=== PATIENT | female | born 1935 | race Caucasian/White ===

== ENCOUNTER 2019-04-05 10:38 | Inpatient (IN) ==
[2019-04-05] MEDS ORDERED: Aspirin 81 MG TAB.CHEW PO ONE (10:48)
[2019-04-05] MEDS ORDERED: Nitroglycerin 0.4 MG TAB.SUBL SL PRN (11:00)
[2019-04-05 11:03] LABS: Basophils # 0.1 K/mcL (0.0-0.2); Basophils % 1.1 %; Eosinophils # 0.4 K/mcL (0.0-0.6); Eosinophils % 4.6 %; Hematocrit 35.6 % (35.3-44.9); Hemoglobin 11.3 g/dL (11.5-15.4); Immature Granulocytes % 0.2 % (0-4); Lymphocytes # 2.9 K/mcL (0.6-4.6); Lymphocytes % 30.3 %; Mean Corpuscular HGB Conc 31.7 g/dL (31.6-35.5); Mean Corpuscular Volume 81.8 fL (83.0-100.0); Mean Platelet Volume 10.5 fL (9.4-12.4); Monocytes # 0.9 K/mcL (0.0-1.3); Monocytes % 9.4 %; Neutrophils # 5.1 K/mcL (1.6-8.9); Platelet Count 243 K/mcL (140-400); Red Blood Count 4.35 M/mcL (3.82-4.97); Red Cell Distribution Width 14.6 % (11.5-14.5); Segmented Neutrophils % 54.4 %; White Blood Count 9.4 K/mcL (4.3-11.1)
[2019-04-05 11:16] LABS: Prothrombin Time 11.5 Seconds (9.4-12.1)
[2019-04-05 11:25] LABS: Calcium 9.8 mg/dL (8.6-10.3); Potassium 3.2 mEq/L (3.5-5.1)
[2019-04-05 11:36] LABS: Troponin I 0.26 ng/mL (< 0.04)
[2019-04-05] MEDS: Nitroglycerin 25 MG/250 ML INFUS..BTL IVC SCH (12:19)
[2019-04-05] MEDS ORDERED: Naloxone 0.4 MG/ML INJ IVP PRN (13:53)
[2019-04-05] MEDS ORDERED: *HR* Heparin 5,000 UNIT/ML VIAL IVP ONE (15:05)
[2019-04-05] MEDS ORDERED: *HR* Heparin 5,000 UNIT/ML VIAL IVP PRN ×2 (15:05)
[2019-04-05] MEDS ORDERED: Heparin 25,000 UNIT/250 ML D5W 25,000 UNIT/250 ML IV.SOLN IVC SCH (15:15)
[2019-04-05] MEDS: Acetaminophen 325 MG TABLET PO PRN (16:34)
[2019-04-05 16:45] LABS: Hematocrit 33.5 % (35.3-44.9); Hemoglobin 10.9 g/dL (11.5-15.4); Mean Corpuscular HGB Conc 32.5 g/dL (31.6-35.5); Mean Corpuscular Hemoglobin 26.7 pg (28.0-33.3); Mean Corpuscular Volume 81.9 fL (83.0-100.0); Mean Platelet Volume 10.6 fL (9.4-12.4); Platelet Count 222 K/mcL (140-400); Red Blood Count 4.09 M/mcL (3.82-4.97); Red Cell Distribution Width 14.7 % (11.5-14.5); White Blood Count 8.7 K/mcL (4.3-11.1)
[2019-04-05 16:53] LABS: Heparin anti-factor XA UFH 0.03 IU/mL (0.30-0.70)
[2019-04-05 16:54] LABS: Prothrombin Time 11.4 Seconds (9.4-12.1)
[2019-04-05] MEDS ORDERED: Metoprolol XL (24 HR) Succ 50 MG TAB.ER.24H PO ONE ×2 (18:30→18:45)
[2019-04-05] MEDS: *HR* Acetylcysteine 20% 600 MG/3 ML ORAL SYRINGE PO SCH (21:25)
[2019-04-05] MEDS: *HR* HYDROcodone/Acet 5/325 mg TABLET PO PRN (21:37)
[2019-04-06 05:15] LABS: Mean Corpuscular HGB Conc 32.4 g/dL (31.6-35.5); Mean Corpuscular Hemoglobin 26.8 pg (28.0-33.3); Mean Corpuscular Volume 82.7 fL (83.0-100.0); Mean Platelet Volume 10.8 fL (9.4-12.4); Platelet Count 234 K/mcL (140-400); Red Blood Count 4.11 M/mcL (3.82-4.97); Red Cell Distribution Width 14.8 % (11.5-14.5); White Blood Count 10.9 K/mcL (4.3-11.1)
[2019-04-06 05:23] LABS: Calcium 9.8 mg/dL (8.6-10.3); Chol/HDL Ratio 5.1 (0-4.9); Magnesium 1.7 mg/dL (1.6-2.6); Potassium 3.6 mEq/L (3.5-5.1)
[2019-04-06] MEDS ORDERED: *HR* Metoprolol 5 MG/5 ML VIAL IVP ONE (06:03)
[2019-04-06] MEDS ORDERED: Metoprolol XL (24 HR) Succ 50 MG TAB.ER.24H PO SCH ×2 (09:00)
[2019-04-06] MEDS: DilTIAZem CD (24hr) 240 MG CAP.ER.24H PO SCH (09:14)
[2019-04-06] MEDS: cloNIDine HCl 0.1 MG TABLET PO SCH ×3 (09:14→20:25)
[2019-04-06] MEDS: *HR* Acetylcysteine 20% 600 MG/3 ML ORAL SYRINGE PO SCH ×2 (09:16→20:25)
[2019-04-06] MEDS: Nitroglycerin 25 MG/250 ML INFUS..BTL IVC SCH (09:16)
[2019-04-06] MEDS: carvediloL 6.25 MG TABLET PO SCH ×2 (11:10→18:15)
[2019-04-06] MEDS: *HR* Heparin 5,000 UNIT/ML VIAL SQ SCH (18:15)
[2019-04-06] MEDS ORDERED: DilTIAZem CD (24hr) 240 MG CAP.ER.24H PO ONE (20:00)
[2019-04-06] MEDS: *HR* HYDROcodone/Acet 5/325 mg TABLET PO PRN (20:42)
[2019-04-07 03:42] LABS: Basophils % 0.6 %; Eosinophils # 0.3 K/mcL (0.0-0.6); Eosinophils % 4.4 %; Hematocrit 27.2 % (35.3-44.9); Immature Granulocytes % 0.3 % (0-4); Lymphocytes # 2.5 K/mcL (0.6-4.6); Lymphocytes % 35.2 %; Mean Corpuscular Hemoglobin 26.7 pg (28.0-33.3); Mean Corpuscular Volume 83.4 fL (83.0-100.0); Mean Platelet Volume 11.1 fL (9.4-12.4); Monocytes # 0.6 K/mcL (0.0-1.3); Monocytes % 8.5 %; Neutrophils # 3.6 K/mcL (1.6-8.9); Platelet Count 177 K/mcL (140-400); Red Blood Count 3.26 M/mcL (3.82-4.97); Red Cell Distribution Width 14.9 % (11.5-14.5)
[2019-04-07 03:57] LABS: Hemoglobin 8.7 g/dL (11.5-15.4)
[2019-04-07 04:01] LABS: Calcium 8.8 mg/dL (8.6-10.3); Magnesium 1.7 mg/dL (1.6-2.6); Potassium 3.5 mEq/L (3.5-5.1)
[2019-04-07] MEDS: *HR* Heparin 5,000 UNIT/ML VIAL SQ SCH (05:21)
[2019-04-07 06:55] LABS: Estimated Average Glucose 160 mg/dl
[2019-04-07] MEDS ORDERED: Regadenoson 0.4 MG/5 ML SYRINGE IVP ONE (07:11)
[2019-04-07] MEDS ORDERED: (Ezetimibe 10 MG) PO SCH (09:00)
[2019-04-07] MEDS: *HR* Acetylcysteine 20% 600 MG/3 ML ORAL SYRINGE PO SCH (10:13)
[2019-04-07] MEDS: 0.9 % Sodium Chloride 1,000 ML IVC SCH ×2 (10:15→21:32)
[2019-04-07] MEDS: carvediloL 6.25 MG TABLET PO SCH ×3 (10:25→17:23)
[2019-04-07] MEDS: DilTIAZem CD (24hr) 240 MG CAP.ER.24H PO SCH (10:25)
[2019-04-07] MEDS: Aspirin Enteric Coated 81 MG Tablet PO SCH (10:25)
[2019-04-07] MEDS ORDERED: D5% in Water 1,000 ML IVC PRN (12:24)
[2019-04-07] MEDS ORDERED: *HR* Dextrose 50 % in Water (Syg) 50 ML SYRINGE IVP PRN (12:24)
[2019-04-07] MEDS ORDERED: Dextrose Gel 15 GM/37.5 ML TUBE PO PRN ×2 (12:24)
[2019-04-07 13:51] LABS: Hematocrit 31.3 % (35.3-44.9); Hemoglobin 10.1 g/dL (11.5-15.4)
[2019-04-07 14:11] LABS: % Iron Saturation 12 % (15-50); Iron 35 mcg/dL (50-170); Transferrin 215 mg/dL (203-362)
[2019-04-07] MEDS: Insulin LISPRO 300 UNITS/3 ML VIAL SQ SCH ×2 (16:42→21:15)
[2019-04-07] MEDS: Pantoprazole 40 MG VIAL IVP SCH (17:24)
[2019-04-07 22:26] LABS: Sodium, Urine 19.3 mEq/L
[2019-04-08] MEDS: 0.9 % Sodium Chloride 1,000 ML IVC SCH ×2 (00:08→16:15)
[2019-04-08 04:14] LABS: Basophils # 0.1 K/mcL (0.0-0.2); Basophils % 0.8 %; Eosinophils # 0.6 K/mcL (0.0-0.6); Eosinophils % 5.9 %; Hematocrit 33.2 % (35.3-44.9); Hemoglobin 10.7 g/dL (11.5-15.4); Immature Granulocytes % 0.4 % (0-4); Lymphocytes % 39.1 %; Mean Corpuscular HGB Conc 32.2 g/dL (31.6-35.5); Mean Corpuscular Hemoglobin 26.3 pg (28.0-33.3); Mean Corpuscular Volume 81.6 fL (83.0-100.0); Mean Platelet Volume 11.1 fL (9.4-12.4); Monocytes # 0.7 K/mcL (0.0-1.3); Monocytes % 6.7 %; Neutrophils # 4.8 K/mcL (1.6-8.9); Platelet Count 235 K/mcL (140-400); Red Blood Count 4.07 M/mcL (3.82-4.97); Red Cell Distribution Width 14.8 % (11.5-14.5); Segmented Neutrophils % 47.1 %; White Blood Count 10.1 K/mcL (4.3-11.1)
[2019-04-08 04:33] LABS: Magnesium 1.9 mg/dL (1.6-2.6); Potassium 3.7 mEq/L (3.5-5.1)
[2019-04-08] MEDS: Pantoprazole 40 MG VIAL IVP SCH (05:48)
[2019-04-08] MEDS: Insulin LISPRO 300 UNITS/3 ML VIAL SQ SCH ×4 (07:12→21:08)
[2019-04-08] MEDS: carvediloL 6.25 MG TABLET PO SCH ×2 (08:34→16:15)
[2019-04-08] MEDS: DilTIAZem CD (24hr) 240 MG CAP.ER.24H PO SCH (08:34)
[2019-04-08] MEDS ORDERED: hydrOXYzine pamoate 25 MG CAPSULE PO ONE ×2 (17:03→21:10)
[2019-04-08] MEDS ORDERED: Melatonin 3 MG TABLET PO PRN (20:08)
[2019-04-09] MEDS: 0.9 % Sodium Chloride 1,000 ML IVC SCH ×2 (05:25→19:48)
[2019-04-09] MEDS: Acetaminophen 325 MG TABLET PO PRN (05:28)
[2019-04-09 05:50] LABS: Basophils # 0.1 K/mcL (0.0-0.2); Basophils % 0.7 %; Eosinophils # 0.5 K/mcL (0.0-0.6); Eosinophils % 4.6 %; Hematocrit 32.2 % (35.3-44.9); Hemoglobin 10.5 g/dL (11.5-15.4); Immature Granulocytes % 0.2 % (0-4); Lymphocytes # 2.5 K/mcL (0.6-4.6); Lymphocytes % 24.4 %; Mean Corpuscular HGB Conc 32.6 g/dL (31.6-35.5); Mean Corpuscular Hemoglobin 26.6 pg (28.0-33.3); Mean Corpuscular Volume 81.5 fL (83.0-100.0); Mean Platelet Volume 10.9 fL (9.4-12.4); Monocytes # 0.7 K/mcL (0.0-1.3); Neutrophils # 6.3 K/mcL (1.6-8.9); Platelet Count 240 K/mcL (140-400); Red Blood Count 3.95 M/mcL (3.82-4.97); Segmented Neutrophils % 63.1 %
[2019-04-09 05:59] LABS: Prothrombin Time 11.3 Seconds (9.4-12.1)
[2019-04-09 06:09] LABS: Calcium 9.3 mg/dL (8.6-10.3); Potassium 3.6 mEq/L (3.5-5.1)
[2019-04-09] MEDS: Insulin LISPRO 300 UNITS/3 ML VIAL SQ SCH ×4 (07:23→22:42)
[2019-04-09] MEDS: Aspirin Enteric Coated 81 MG Tablet PO SCH (07:25)
[2019-04-09] MEDS: carvediloL 6.25 MG TABLET PO SCH ×2 (07:25→16:19)
[2019-04-09] MEDS: DilTIAZem CD (24hr) 180 MG CAP.ER.24H PO SCH (07:58)
[2019-04-09] MEDS: hydrOXYzine pamoate 25 MG CAPSULE PO PRN (12:26)
[2019-04-09] MEDS: Isosorbide MONOnitrate (24 HR) 30 MG TAB.ER.24H PO SCH (16:20)
[2019-04-09] MEDS: Ondansetron 4 MG/2 ML VIAL IVP PRN (22:43)
[2019-04-10] MEDS: 0.9 % Sodium Chloride 1,000 ML IVC SCH (06:08)
[2019-04-10 06:52] LABS: Hematocrit 30.8 % (35.3-44.9); Hemoglobin 9.8 g/dL (11.5-15.4); Mean Corpuscular HGB Conc 31.8 g/dL (31.6-35.5); Mean Corpuscular Hemoglobin 26.1 pg (28.0-33.3); Mean Corpuscular Volume 81.9 fL (83.0-100.0); Platelet Count 258 K/mcL (140-400); Red Blood Count 3.76 M/mcL (3.82-4.97); Red Cell Distribution Width 15.5 % (11.5-14.5); White Blood Count 10.5 K/mcL (4.3-11.1)
[2019-04-10 07:11] LABS: Calcium 9.3 mg/dL (8.6-10.3); Potassium 3.3 mEq/L (3.5-5.1)
[2019-04-10] MEDS: Insulin LISPRO 300 UNITS/3 ML VIAL SQ SCH ×4 (08:17→20:53)
[2019-04-10] MEDS: carvediloL 6.25 MG TABLET PO SCH ×2 (08:25→16:16)
[2019-04-10] MEDS: DilTIAZem CD (24hr) 180 MG CAP.ER.24H PO SCH (08:26)
[2019-04-10] MEDS: Aspirin Enteric Coated 81 MG Tablet PO SCH (08:26)
[2019-04-10] MEDS: Isosorbide MONOnitrate (24 HR) 30 MG TAB.ER.24H PO SCH (08:27)
[2019-04-10] MEDS ORDERED: Lidocaine -MPF 2% 2 ML VIAL ONE (12:35)
[2019-04-10] MEDS ORDERED: Propofol 500 MG/50 ML INFUS..BTL ONE (12:49)
[2019-04-11] MEDS: Aspirin Enteric Coated 81 MG Tablet PO SCH (07:41)
[2019-04-11] MEDS: Isosorbide MONOnitrate (24 HR) 30 MG TAB.ER.24H PO SCH (07:41)
[2019-04-11] MEDS: DilTIAZem CD (24hr) 180 MG CAP.ER.24H PO SCH (07:42)
[2019-04-11] MEDS: carvediloL 6.25 MG TABLET PO SCH ×2 (07:42→16:16)
[2019-04-11] MEDS: Insulin LISPRO 300 UNITS/3 ML VIAL SQ SCH ×4 (07:56→21:35)
[2019-04-11 09:07] LABS: Hematocrit 28.2 % (35.3-44.9)
[2019-04-11 09:28] LABS: Calcium 8.4 mg/dL (8.6-10.3); Potassium 3.5 mEq/L (3.5-5.1)
[2019-04-11] MEDS ORDERED: Furosemide 20 MG/2 ML VIAL IVP ONE (10:08)
[2019-04-11] MEDS ORDERED: Albumin 25% 12.5gm/50mL 12.5 GM/50 ML IV.SOLN IVPB ONE (10:46)
[2019-04-11] MEDS ORDERED: Isosorbide MONOnitrate (24 HR) 30 MG TAB.ER.24H PO ONE (11:24)
[2019-04-11] MEDS: hydrALAZINE 25 MG TABLET PO SCH (16:17)
[2019-04-12] MEDS: hydrALAZINE 25 MG TABLET PO SCH ×4 (00:15→23:18)
[2019-04-12 05:03] LABS: Hematocrit 28.4 % (35.3-44.9); Hemoglobin 9.2 g/dL (11.5-15.4)
[2019-04-12 05:22] LABS: Calcium 8.5 mg/dL (8.6-10.3); Potassium 2.8 mEq/L (3.5-5.1)
[2019-04-12] MEDS: Insulin LISPRO 300 UNITS/3 ML VIAL SQ SCH ×4 (07:41→21:11)
[2019-04-12] MEDS: DilTIAZem CD (24hr) 180 MG CAP.ER.24H PO SCH (08:54)
[2019-04-12] MEDS: Aspirin Enteric Coated 81 MG Tablet PO SCH (08:54)
[2019-04-12] MEDS: carvediloL 6.25 MG TABLET PO SCH ×2 (08:55→16:18)
[2019-04-12] MEDS ORDERED: Isosorbide MONOnitrate (24 HR) 30 MG TAB.ER.24H PO SCH (09:00)
[2019-04-12] MEDS: hydrOXYzine pamoate 25 MG CAPSULE PO PRN ×3 (09:40→23:31)
[2019-04-12] MEDS ORDERED: Isosorbide MONOnitrate (24 HR) 30 MG TAB.ER.24H PO ONE (10:09)
[2019-04-12] MEDS: Acetaminophen 325 MG TABLET PO PRN (16:50)
[2019-04-12] MEDS ORDERED: Albumin 25% 25gram/100mL 25 GM/100 ML IV.SOLN IVPB ONE (16:57)
[2019-04-13] MEDS ORDERED: Nitroglycerin 0.4 MG TAB.SUBL SL PRN (00:25)
[2019-04-13] MEDS ORDERED: Nitroglycerin 0.4 MG TAB.SUBL SL ONE (00:26)
[2019-04-13] MEDS ORDERED: Ipratropium/Albuterol Neb 3 ML IH ONE (00:30)
[2019-04-13] MEDS ORDERED: Racepinephrine Neb 0.5 ML VIAL IH ONE ×2 (00:30→00:32)
[2019-04-13] MEDS ORDERED: Morphine Sulfate 2 MG/ML SYRINGE IVP ONE ×2 (00:32→00:50)
[2019-04-13] MEDS ORDERED: Nitroglycerin 25 MG/250 ML INFUS..BTL IVC ONE (00:44)
[2019-04-13] MEDS: Nitroglycerin 25 MG/250 ML INFUS..BTL IVC SCH (00:45)
[2019-04-13] MEDS: Furosemide 40 MG/4 ML VIAL IVP ONE (01:21)
[2019-04-13] MEDS: Ondansetron 4 MG/2 ML VIAL IVP PRN (01:28)
[2019-04-13 01:58] LABS: Calcium 8.6 mg/dL (8.6-10.3); Potassium 3.7 mEq/L (3.5-5.1); Thyroid Stimulating Hormone 2.549 mcIU/mL (0.340-5.600)
[2019-04-13] MEDS: Acetaminophen 325 MG TABLET PO PRN ×2 (09:02→15:32)
[2019-04-13] MEDS: Isosorbide MONOnitrate (24 HR) 60 MG TAB.ER.24H PO SCH (09:02)
[2019-04-13] MEDS: carvediloL 6.25 MG TABLET PO SCH ×2 (09:02→17:25)
[2019-04-13] MEDS: DilTIAZem CD (24hr) 180 MG CAP.ER.24H PO SCH (09:02)
[2019-04-13] MEDS: Aspirin Enteric Coated 81 MG Tablet PO SCH (09:02)
[2019-04-13] MEDS: hydrALAZINE 25 MG TABLET PO SCH ×2 (09:02→15:31)
[2019-04-13] MEDS: Insulin LISPRO 300 UNITS/3 ML VIAL SQ SCH ×4 (09:03→20:39)
[2019-04-13] MEDS: *HR* LORazepam 2 MG/ML VIAL IVP PRN (09:03)
[2019-04-13] MEDS: hydrOXYzine pamoate 25 MG CAPSULE PO PRN (15:31)
[2019-04-13 17:56] LABS: Calcium 8.2 mg/dL (8.6-10.3); Potassium 3.6 mEq/L (3.5-5.1)
[2019-04-14] MEDS: hydrALAZINE 25 MG TABLET PO SCH ×4 (00:26→23:45)
[2019-04-14 01:44] LABS: Hematocrit 24.3 % (35.3-44.9); Hemoglobin 7.9 g/dL (11.5-15.4)
[2019-04-14 02:03] LABS: Calcium 7.8 mg/dL (8.6-10.3); Potassium 3.3 mEq/L (3.5-5.1)
[2019-04-14] MEDS ORDERED: Ipratropium/Albuterol Neb 3 ML IH PRN (06:13)
[2019-04-14] MEDS: Isosorbide MONOnitrate (24 HR) 60 MG TAB.ER.24H PO SCH (09:10)
[2019-04-14] MEDS: Aspirin Enteric Coated 81 MG Tablet PO SCH (09:10)
[2019-04-14] MEDS: DilTIAZem CD (24hr) 180 MG CAP.ER.24H PO SCH (09:11)
[2019-04-14] MEDS: *HR* LORazepam 2 MG/ML VIAL IVP PRN (09:11)
[2019-04-14] MEDS: carvediloL 6.25 MG TABLET PO SCH ×2 (09:11→16:14)
[2019-04-14] MEDS: Insulin LISPRO 300 UNITS/3 ML VIAL SQ SCH ×4 (09:12→22:01)
[2019-04-14] MEDS: Cholecalciferol (D-3) 1,000 UNIT (25MCG) TABLET PO SCH (09:54)
[2019-04-14] MEDS ORDERED: Furosemide 40 MG/4 ML VIAL IVP ONE (12:50)
[2019-04-14] MEDS: Furosemide 40 MG/4 ML VIAL IVP ONE (15:03)
[2019-04-14 15:04] LABS: Bilirubin,Urine Negative (Negative); Blood,Urine Moderate (Negative); Clarity,Urine Cloudy (Clear); Color,Urine Yellow (Yellow); Glucose,Urine (UA) Normal (Normal); Ketones,Urine Negative (Negative); Leukocyte Esterase,Urine Negative (Negative); Nitrite,Urine Negative (Negative); Protein,Urine 100 mg/dL (Neg-Trace); Specific Gravity,Urine 1.011 (1.010-1.025); Urobilinogen,Urine Normal (Normal)
[2019-04-14 15:06] LABS: Bacteria,Urine None Seen per hpf (None-Few); Hyaline Casts,Urine None Seen per lpf (None-Few); RBC,Urine 50-100 per hpf (0-3); Squamous Epithelial Cell,Urine Many per lpf (None-Few)
[2019-04-14] MEDS: Acetaminophen 325 MG TABLET PO PRN (16:14)
[2019-04-14 17:09] LABS: Creatinine,Urine 89 mg/dL; Microalbum/Creatinine Ratio,Ur 1440 mcg/mg (Less than 30); Microalbumin,Urine 1282 mg/L; Protein/Creatinine Ratio,Urine 2.19 mg/mg (0.00-0.20); Sodium, Urine < 10.0 mEq/L
[2019-04-15] MEDS: *HR* LORazepam 2 MG/ML VIAL IVP PRN (00:35)
[2019-04-15] MEDS: Nitroglycerin 25 MG/250 ML INFUS..BTL IVC SCH ×2 (01:13→11:14)
[2019-04-15 03:35] LABS: Basophils # 0.1 K/mcL (0.0-0.2); Basophils % 0.5 %; Eosinophils # 0.5 K/mcL (0.0-0.6); Eosinophils % 5.5 %; Hematocrit 26.2 % (35.3-44.9); Hemoglobin 8.7 g/dL (11.5-15.4); Immature Granulocytes % 0.4 % (0-4); Lymphocytes # 2.4 K/mcL (0.6-4.6); Lymphocytes % 25.5 %; Mean Corpuscular HGB Conc 33.2 g/dL (31.6-35.5); Mean Corpuscular Hemoglobin 26.4 pg (28.0-33.3); Mean Corpuscular Volume 79.4 fL (83.0-100.0); Mean Platelet Volume 10.9 fL (9.4-12.4); Monocytes # 0.9 K/mcL (0.0-1.3); Monocytes % 9.6 %; Neutrophils # 5.5 K/mcL (1.6-8.9); Platelet Count 259 K/mcL (140-400); Red Cell Distribution Width 15.1 % (11.5-14.5); Segmented Neutrophils % 58.5 %; White Blood Count 9.4 K/mcL (4.3-11.1)
[2019-04-15 03:41] LABS: Prothrombin Time 11.3 Seconds (9.4-12.1)
[2019-04-15 03:43] LABS: Magnesium 1.6 mg/dL (1.6-2.6); Potassium 3.1 mEq/L (3.5-5.1); Uric Acid 7.5 mg/dL (2.3-7.6)
[2019-04-15 03:45] LABS: Calcium 8.3 mg/dL (8.6-10.3)
[2019-04-15] MEDS ORDERED: Potassium Chloride 40 MEQ, Lidocaine 1% 2 ML in D5% in Water 500 ML IVPB ONE (07:36)
[2019-04-15] MEDS ORDERED: *HR* Labetalol 20 MG/4 ML SYRINGE IVP PRN (07:38)
[2019-04-15] MEDS: Insulin LISPRO 300 UNITS/3 ML VIAL SQ SCH ×4 (07:46→23:49)
[2019-04-15] MEDS: hydrALAZINE 25 MG TABLET PO SCH ×2 (08:26→18:44)
[2019-04-15] MEDS: Cholecalciferol (D-3) 1,000 UNIT (25MCG) TABLET PO SCH (08:26)
[2019-04-15] MEDS: DilTIAZem CD (24hr) 180 MG CAP.ER.24H PO SCH (08:26)
[2019-04-15] MEDS: carvediloL 6.25 MG TABLET PO SCH ×2 (08:26→18:44)
[2019-04-15] MEDS: Aspirin Enteric Coated 81 MG Tablet PO SCH (08:27)
[2019-04-15] MEDS: Isosorbide MONOnitrate (24 HR) 60 MG TAB.ER.24H PO SCH (08:27)
[2019-04-15] MEDS ORDERED: Lactulose Oral Soln 20 GM/30 ML UDC PO ONE ×2 (10:31→10:35)
[2019-04-15] MEDS ORDERED: Furosemide 40 MG TABLET PO ONE (11:03)
[2019-04-15] MEDS: Acetaminophen 325 MG TABLET PO PRN (11:23)
[2019-04-15] MEDS ORDERED: 0.9 % Sodium Chloride 500 ML ONE (20:20)
[2019-04-16] MEDS: hydrALAZINE 25 MG TABLET PO SCH ×3 (01:09→16:24)
[2019-04-16 06:31] LABS: Hematocrit 28.5 % (35.3-44.9); Hemoglobin 9.4 g/dL (11.5-15.4); Mean Corpuscular Hemoglobin 26.7 pg (28.0-33.3); Mean Platelet Volume 10.7 fL (9.4-12.4); Platelet Count 285 K/mcL (140-400); Red Blood Count 3.52 M/mcL (3.82-4.97); Red Cell Distribution Width 15.5 % (11.5-14.5); White Blood Count 8.7 K/mcL (4.3-11.1)
[2019-04-16 06:51] LABS: Calcium 8.7 mg/dL (8.6-10.3); Potassium 3.6 mEq/L (3.5-5.1)
[2019-04-16] MEDS: Insulin LISPRO 300 UNITS/3 ML VIAL SQ SCH ×4 (07:47→22:30)
[2019-04-16] MEDS: Cholecalciferol (D-3) 1,000 UNIT (25MCG) TABLET PO SCH (07:53)
[2019-04-16] MEDS: DilTIAZem CD (24hr) 180 MG CAP.ER.24H PO SCH (07:53)
[2019-04-16] MEDS: Aspirin Enteric Coated 81 MG Tablet PO SCH (07:54)
[2019-04-16] MEDS: Isosorbide MONOnitrate (24 HR) 60 MG TAB.ER.24H PO SCH (07:54)
[2019-04-16] MEDS: carvediloL 6.25 MG TABLET PO SCH ×2 (07:54→16:24)
[2019-04-16] MEDS ORDERED: Furosemide 40 MG TABLET PO ONE (09:47)
[2019-04-16] MEDS: Acetaminophen 325 MG TABLET PO PRN (13:33)
[2019-04-16 18:43] LABS: Kappa Qnt Free Light Chains 2.03 mg/dL (0.33-1.94); Lambda Qnt Free Light Chains 1.32 mg/dL (0.57-2.63)
[2019-04-16] MEDS: Lactulose Oral Soln 20 GM/30 ML UDC PO SCH (22:28)
[2019-04-17] MEDS: hydrALAZINE 25 MG TABLET PO SCH ×4 (01:54→23:31)
[2019-04-17] MEDS: *HR* LORazepam 2 MG/ML VIAL IVP PRN (01:55)
[2019-04-17 05:21] LABS: Hematocrit 26.8 % (35.3-44.9); Hemoglobin 8.9 g/dL (11.5-15.4); Mean Corpuscular HGB Conc 33.2 g/dL (31.6-35.5); Mean Corpuscular Hemoglobin 26.6 pg (28.0-33.3); Mean Platelet Volume 9.9 fL (9.4-12.4); Platelet Count 277 K/mcL (140-400); Red Blood Count 3.35 M/mcL (3.82-4.97); Red Cell Distribution Width 15.5 % (11.5-14.5); White Blood Count 10.9 K/mcL (4.3-11.1)
[2019-04-17 05:41] LABS: Calcium 8.9 mg/dL (8.6-10.3); Potassium 3.4 mEq/L (3.5-5.1)
[2019-04-17] MEDS ORDERED: Heparin 1,000 UNITS/500 mL 500 ML ONE (07:04)
[2019-04-17] MEDS ORDERED: ISOVUE-370 200 ML INFUS..BTL ONE ×2 (07:04→07:07)
[2019-04-17] MEDS ORDERED: *HR* Heparin 10,000 UNIT/10 ML VIAL ONE (07:04)
[2019-04-17] MEDS ORDERED: 0.9 % Sodium Chloride 1,000 ML ONE (07:04)
[2019-04-17] MEDS ORDERED: Nitroglycerin 1,000 MCG/10 ML VIAL IV ONE (07:04)
[2019-04-17] MEDS ORDERED: *HR* Midazolam HCl 2 MG/2 ML VIAL ONE (08:12)
[2019-04-17] MEDS ORDERED: Verapamil 5 MG/2 ML VIAL ONE (08:12)
[2019-04-17] MEDS ORDERED: *HR* FentaNYL (PF) 100 MCG/2 ML VIAL ONE (08:12)
[2019-04-17] MEDS: Nitroglycerin 25 MG/250 ML INFUS..BTL IVC SCH ×2 (10:00→10:05)
[2019-04-17] MEDS: Insulin LISPRO 300 UNITS/3 ML VIAL SQ SCH ×4 (10:00→20:59)
[2019-04-17] MEDS: Aspirin Enteric Coated 81 MG Tablet PO SCH (10:05)
[2019-04-17] MEDS: Cholecalciferol (D-3) 1,000 UNIT (25MCG) TABLET PO SCH (10:05)
[2019-04-17] MEDS: Isosorbide MONOnitrate (24 HR) 60 MG TAB.ER.24H PO SCH (10:05)
[2019-04-17] MEDS: carvediloL 6.25 MG TABLET PO SCH ×2 (10:05→16:21)
[2019-04-17] MEDS: DilTIAZem CD (24hr) 180 MG CAP.ER.24H PO SCH (10:05)
[2019-04-17] MEDS: Fluticasone Propionate Nasal 50 MCG/SPRAY BOTTLE NS SCH (12:57)
[2019-04-17] MEDS: Acetaminophen 325 MG TABLET PO PRN ×2 (16:21→23:46)
[2019-04-17] MEDS: Lactulose Oral Soln 20 GM/30 ML UDC PO SCH (20:59)
[2019-04-18 00:40] LABS: Alpha 2 Globulin (PEP) 1.01 g/dL (0.48-1.05); Beta Globulin (PEP) 0.64 g/dL (0.48-1.10)
[2019-04-18 03:57] LABS: Hematocrit 23.6 % (35.3-44.9); Hemoglobin 7.8 g/dL (11.5-15.4); Mean Corpuscular HGB Conc 33.1 g/dL (31.6-35.5); Mean Corpuscular Hemoglobin 26.5 pg (28.0-33.3); Mean Corpuscular Volume 80.3 fL (83.0-100.0); Platelet Count 238 K/mcL (140-400); Red Blood Count 2.94 M/mcL (3.82-4.97); Red Cell Distribution Width 15.6 % (11.5-14.5); White Blood Count 12.6 K/mcL (4.3-11.1)
[2019-04-18 04:17] LABS: Calcium 8.4 mg/dL (8.6-10.3); Potassium 3.4 mEq/L (3.5-5.1)
[2019-04-18] MEDS: Insulin LISPRO 300 UNITS/3 ML VIAL SQ SCH ×4 (07:52→21:06)
[2019-04-18] MEDS: DilTIAZem CD (24hr) 180 MG CAP.ER.24H PO SCH (07:54)
[2019-04-18] MEDS: carvediloL 6.25 MG TABLET PO SCH ×2 (07:54→16:31)
[2019-04-18] MEDS: Isosorbide MONOnitrate (24 HR) 60 MG TAB.ER.24H PO SCH (07:54)
[2019-04-18] MEDS: Cholecalciferol (D-3) 1,000 UNIT (25MCG) TABLET PO SCH (07:55)
[2019-04-18] MEDS: Aspirin 81 MG TAB.CHEW PO SCH (07:55)
[2019-04-18] MEDS: Aspirin Enteric Coated 81 MG Tablet PO SCH (07:55)
[2019-04-18] MEDS: hydrALAZINE 25 MG TABLET PO SCH ×3 (07:55→23:10)
[2019-04-18] MEDS: Fluticasone Propionate Nasal 50 MCG/SPRAY BOTTLE NS SCH (07:56)
[2019-04-18] MEDS: Potassium Chloride Elixir 20 MEQ/15 ML UDC PO SCH ×2 (08:08→11:31)
[2019-04-18] MEDS ORDERED: Furosemide 40 MG TABLET PO ONE (08:35)
[2019-04-18] MEDS: Acetaminophen 325 MG TABLET PO PRN (09:39)
[2019-04-18 09:51] LABS: IFE Reflexed IFE Done; Immunoglobulin A 70 mg/dL (68-408); Immunoglobulin G 451 mg/dL (768-1632); Immunoglobulin M 42 mg/dL (35-263)
[2019-04-18 14:25] LABS: Bilirubin,Urine Negative (Negative); Blood,Urine Large (Negative); Clarity,Urine Turbid (Clear); Color,Urine Red (Yellow); Glucose,Urine (UA) Normal (Normal); Ketones,Urine Negative (Negative); Leukocyte Esterase,Urine Moderate (Negative); Nitrite,Urine Negative (Negative); Protein,Urine >=1000 mg/dL (Neg-Trace); Specific Gravity,Urine 1.028 (1.010-1.025); Urobilinogen,Urine Normal (Normal)
[2019-04-18 14:27] LABS: Bacteria,Urine None Seen per hpf (None-Few); RBC,Urine TNTC per hpf (0-3); Squamous Epithelial Cell,Urine Moderate per lpf (None-Few); WBC,Urine 15-30 per hpf (0-3)
[2019-04-18 14:35] LABS: Hyaline Casts,Urine None Seen per lpf (None-Few)
[2019-04-18] MEDS: Lactulose Oral Soln 20 GM/30 ML UDC PO SCH (21:05)
[2019-04-19 06:27] LABS: Urine Collection Volume RANDOM mL
[2019-04-19] MEDS: Cholecalciferol (D-3) 1,000 UNIT (25MCG) TABLET PO SCH (07:52)
[2019-04-19] MEDS: hydrALAZINE 25 MG TABLET PO SCH ×3 (07:52→23:04)
[2019-04-19] MEDS: Insulin LISPRO 300 UNITS/3 ML VIAL SQ SCH ×4 (07:52→20:20)
[2019-04-19] MEDS: Isosorbide MONOnitrate (24 HR) 60 MG TAB.ER.24H PO SCH (07:52)
[2019-04-19] MEDS: Aspirin Enteric Coated 81 MG Tablet PO SCH (07:52)
[2019-04-19] MEDS: carvediloL 6.25 MG TABLET PO SCH ×2 (07:53→17:24)
[2019-04-19] MEDS: DilTIAZem CD (24hr) 180 MG CAP.ER.24H PO SCH (07:53)
[2019-04-19 07:56] LABS: Basophils % 0.3 %; Eosinophils # 0.5 K/mcL (0.0-0.6); Eosinophils % 4.1 %; Hematocrit 23.3 % (35.3-44.9); Hemoglobin 7.5 g/dL (11.5-15.4); Immature Granulocytes % 0.3 % (0-4); Lymphocytes # 2.1 K/mcL (0.6-4.6); Lymphocytes % 18.4 %; Mean Corpuscular HGB Conc 32.2 g/dL (31.6-35.5); Mean Corpuscular Hemoglobin 26.4 pg (28.0-33.3); Mean Platelet Volume 10.4 fL (9.4-12.4); Monocytes % 8.7 %; Neutrophils # 7.8 K/mcL (1.6-8.9); Platelet Count 241 K/mcL (140-400); Red Blood Count 2.84 M/mcL (3.82-4.97); Red Cell Distribution Width 15.7 % (11.5-14.5); Segmented Neutrophils % 68.2 %; White Blood Count 11.5 K/mcL (4.3-11.1)
[2019-04-19] MEDS: Fluticasone Propionate Nasal 50 MCG/SPRAY BOTTLE NS SCH (08:23)
[2019-04-19] MEDS: Aspirin 81 MG TAB.CHEW PO SCH (08:23)
[2019-04-19 08:30] LABS: Potassium 4.1 mEq/L (3.5-5.1)
[2019-04-19] MEDS: Furosemide 40 MG/4 ML VIAL IVP SCH (09:04)
[2019-04-19] MEDS: cefTRIAXone 1,000 MG in Water for inj. (sterile) 10 ML IVP SCH (09:04)
[2019-04-19] MEDS: Acetaminophen 325 MG TABLET PO PRN ×2 (11:36→19:44)
[2019-04-19] MEDS: amLODIPine 5 MG TABLET PO SCH (11:36)
[2019-04-19] MEDS ORDERED: 0.9 % Sodium Chloride 250 ML ONE (11:56)
[2019-04-19] MEDS: hydrOXYzine pamoate 25 MG CAPSULE PO PRN (13:42)
[2019-04-19] MEDS: Lactulose Oral Soln 20 GM/30 ML UDC PO SCH (19:45)
[2019-04-20 01:34] LABS: Basophils % 0.4 %; Eosinophils # 0.6 K/mcL (0.0-0.6); Eosinophils % 5.6 %; Hematocrit 26.2 % (35.3-44.9); Hemoglobin 8.6 g/dL (11.5-15.4); Immature Granulocytes % 0.4 % (0-4); Lymphocytes # 1.8 K/mcL (0.6-4.6); Lymphocytes % 17.7 %; Mean Corpuscular HGB Conc 32.8 g/dL (31.6-35.5); Mean Corpuscular Hemoglobin 27.2 pg (28.0-33.3); Mean Corpuscular Volume 82.9 fL (83.0-100.0); Mean Platelet Volume 10.4 fL (9.4-12.4); Monocytes % 10.5 %; Neutrophils # 6.5 K/mcL (1.6-8.9); Platelet Count 212 K/mcL (140-400); Red Blood Count 3.16 M/mcL (3.82-4.97); Red Cell Distribution Width 15.8 % (11.5-14.5); Segmented Neutrophils % 65.4 %; White Blood Count 9.9 K/mcL (4.3-11.1)
[2019-04-20 01:52] LABS: Calcium 8.9 mg/dL (8.6-10.3); Potassium 3.8 mEq/L (3.5-5.1)
[2019-04-20] MEDS: Insulin LISPRO 300 UNITS/3 ML VIAL SQ SCH ×4 (08:27→21:41)
[2019-04-20] MEDS: Aspirin 81 MG TAB.CHEW PO SCH (09:14)
[2019-04-20] MEDS: hydrALAZINE 25 MG TABLET PO SCH ×2 (09:14→16:40)
[2019-04-20] MEDS: DilTIAZem CD (24hr) 180 MG CAP.ER.24H PO SCH (09:14)
[2019-04-20] MEDS: Furosemide 40 MG/4 ML VIAL IVP SCH (09:15)
[2019-04-20] MEDS: cefTRIAXone 1,000 MG in Water for inj. (sterile) 10 ML IVP SCH (09:15)
[2019-04-20] MEDS: Cholecalciferol (D-3) 1,000 UNIT (25MCG) TABLET PO SCH (09:15)
[2019-04-20] MEDS: Aspirin Enteric Coated 81 MG Tablet PO SCH (09:15)
[2019-04-20] MEDS: amLODIPine 5 MG TABLET PO SCH (09:15)
[2019-04-20] MEDS: Isosorbide MONOnitrate (24 HR) 60 MG TAB.ER.24H PO SCH (09:15)
[2019-04-20] MEDS: carvediloL 6.25 MG TABLET PO SCH ×2 (09:15→16:41)
[2019-04-20] MEDS: Fluticasone Propionate Nasal 50 MCG/SPRAY BOTTLE NS SCH (09:18)
[2019-04-20] MEDS: Ondansetron 4 MG/2 ML VIAL IVP PRN (09:51)
[2019-04-20] MEDS: Acetaminophen 325 MG TABLET PO PRN (11:31)
[2019-04-20] MEDS: Lactulose Oral Soln 20 GM/30 ML UDC PO SCH (21:46)
[2019-04-21] MEDS: hydrALAZINE 25 MG TABLET PO SCH ×4 (00:07→23:19)
[2019-04-21] MEDS ORDERED: NIFEdipine 10 MG CAPSULE PO ONE (06:38)
[2019-04-21] MEDS: Insulin LISPRO 300 UNITS/3 ML VIAL SQ SCH ×4 (07:30→20:31)
[2019-04-21] MEDS: Isosorbide MONOnitrate (24 HR) 60 MG TAB.ER.24H PO SCH (08:17)
[2019-04-21] MEDS: amLODIPine 5 MG TABLET PO SCH (08:17)
[2019-04-21] MEDS: DilTIAZem CD (24hr) 180 MG CAP.ER.24H PO SCH (08:17)
[2019-04-21] MEDS: Cholecalciferol (D-3) 1,000 UNIT (25MCG) TABLET PO SCH (08:18)
[2019-04-21] MEDS: Fluticasone Propionate Nasal 50 MCG/SPRAY BOTTLE NS SCH (08:18)
[2019-04-21] MEDS: Aspirin 81 MG TAB.CHEW PO SCH (08:18)
[2019-04-21] MEDS: Aspirin Enteric Coated 81 MG Tablet PO SCH (08:18)
[2019-04-21] MEDS: cefTRIAXone 1,000 MG in Water for inj. (sterile) 10 ML IVP SCH (08:19)
[2019-04-21] MEDS: Furosemide 40 MG/4 ML VIAL IVP SCH (08:19)
[2019-04-21 12:29] LABS: Basophils # 0.1 K/mcL (0.0-0.2); Basophils % 0.6 %; Eosinophils # 0.5 K/mcL (0.0-0.6); Eosinophils % 4.2 %; Hematocrit 26.6 % (35.3-44.9); Hemoglobin 8.7 g/dL (11.5-15.4); Immature Granulocytes % 0.5 % (0-4); Lymphocytes # 1.9 K/mcL (0.6-4.6); Lymphocytes % 16.8 %; Mean Corpuscular HGB Conc 32.7 g/dL (31.6-35.5); Mean Corpuscular Volume 82.6 fL (83.0-100.0); Monocytes # 1.3 K/mcL (0.0-1.3); Monocytes % 10.9 %; Neutrophils # 7.7 K/mcL (1.6-8.9); Platelet Count 244 K/mcL (140-400); Red Blood Count 3.22 M/mcL (3.82-4.97); White Blood Count 11.4 K/mcL (4.3-11.1)
[2019-04-21 12:49] LABS: Calcium 8.8 mg/dL (8.6-10.3); Potassium 3.2 mEq/L (3.5-5.1)
[2019-04-21] MEDS: Acetaminophen 325 MG TABLET PO PRN (13:43)
[2019-04-21] MEDS: Potassium Chloride Elixir 20 MEQ/15 ML UDC PO SCH ×2 (14:58→17:30)
[2019-04-21] MEDS: Lactulose Oral Soln 20 GM/30 ML UDC PO SCH (20:31)
[2019-04-21] MEDS ORDERED: *HR* Metoprolol 5 MG/5 ML VIAL IVP ONE (21:10)
[2019-04-22 02:35] LABS: Basophils # 0.1 K/mcL (0.0-0.2); Basophils % 0.6 %; Eosinophils # 0.6 K/mcL (0.0-0.6); Eosinophils % 5.8 %; Hematocrit 26.2 % (35.3-44.9); Hemoglobin 8.2 g/dL (11.5-15.4); Immature Granulocytes % 0.5 % (0-4); Lymphocytes # 1.9 K/mcL (0.6-4.6); Lymphocytes % 19.1 %; Mean Corpuscular HGB Conc 31.3 g/dL (31.6-35.5); Mean Corpuscular Hemoglobin 26.5 pg (28.0-33.3); Mean Corpuscular Volume 84.8 fL (83.0-100.0); Mean Platelet Volume 10.2 fL (9.4-12.4); Monocytes # 1.1 K/mcL (0.0-1.3); Monocytes % 11.7 %; Neutrophils # 6.1 K/mcL (1.6-8.9); Platelet Count 241 K/mcL (140-400); Red Blood Count 3.09 M/mcL (3.82-4.97); Red Cell Distribution Width 16.8 % (11.5-14.5); Segmented Neutrophils % 62.3 %; White Blood Count 9.8 K/mcL (4.3-11.1)
[2019-04-22 02:57] LABS: Calcium 8.7 mg/dL (8.6-10.3); Phosphorous 2.2 mg/dL (2.7-4.5); Potassium 4.1 mEq/L (3.5-5.1)
[2019-04-22] MEDS: Insulin LISPRO 300 UNITS/3 ML VIAL SQ SCH ×4 (07:50→22:25)
[2019-04-22] MEDS: Aspirin Enteric Coated 81 MG Tablet PO SCH (07:52)
[2019-04-22] MEDS: carvediloL 6.25 MG TABLET PO SCH ×2 (08:08→16:27)
[2019-04-22] MEDS: hydrALAZINE 25 MG TABLET PO SCH ×2 (08:08→16:26)
[2019-04-22] MEDS: Aspirin 81 MG TAB.CHEW PO SCH (08:09)
[2019-04-22] MEDS: DilTIAZem CD (24hr) 180 MG CAP.ER.24H PO SCH (08:10)
[2019-04-22] MEDS: Fluticasone Propionate Nasal 50 MCG/SPRAY BOTTLE NS SCH (08:11)
[2019-04-22] MEDS: Furosemide 40 MG/4 ML VIAL IVP SCH (08:11)
[2019-04-22] MEDS: Isosorbide MONOnitrate (24 HR) 60 MG TAB.ER.24H PO SCH (08:11)
[2019-04-22] MEDS: amLODIPine 5 MG TABLET PO SCH (08:12)
[2019-04-22] MEDS: cefTRIAXone 1,000 MG in Water for inj. (sterile) 10 ML IVP SCH (08:12)
[2019-04-22] MEDS: Cholecalciferol (D-3) 1,000 UNIT (25MCG) TABLET PO SCH (08:13)
[2019-04-22] MEDS: Acetaminophen 325 MG TABLET PO PRN (12:13)
[2019-04-22] MEDS: Lactulose Oral Soln 20 GM/30 ML UDC PO SCH (22:24)
[2019-04-23] MEDS: hydrALAZINE 25 MG TABLET PO SCH ×2 (00:26→08:42)
[2019-04-23 05:45] LABS: Basophils # 0.1 K/mcL (0.0-0.2); Basophils % 0.7 %; Eosinophils # 0.6 K/mcL (0.0-0.6); Hematocrit 26.5 % (35.3-44.9); Hemoglobin 8.5 g/dL (11.5-15.4); Immature Granulocytes % 0.5 % (0-4); Lymphocytes # 1.6 K/mcL (0.6-4.6); Lymphocytes % 16.3 %; Mean Corpuscular HGB Conc 32.1 g/dL (31.6-35.5); Mean Corpuscular Hemoglobin 26.9 pg (28.0-33.3); Mean Corpuscular Volume 83.9 fL (83.0-100.0); Monocytes % 10.3 %; Neutrophils # 6.4 K/mcL (1.6-8.9); Platelet Count 233 K/mcL (140-400); Red Blood Count 3.16 M/mcL (3.82-4.97); Red Cell Distribution Width 16.6 % (11.5-14.5); Segmented Neutrophils % 66.2 %; White Blood Count 9.7 K/mcL (4.3-11.1)
[2019-04-23 06:00] LABS: Calcium 8.6 mg/dL (8.6-10.3); Magnesium 2.1 mg/dL (1.6-2.6); Phosphorous 2.9 mg/dL (2.7-4.5); Potassium 3.5 mEq/L (3.5-5.1)
[2019-04-23] MEDS ORDERED: carvediloL 25 MG TABLET PO SCH (08:17)
[2019-04-23] MEDS: Isosorbide MONOnitrate (24 HR) 60 MG TAB.ER.24H PO SCH (08:28)
[2019-04-23] MEDS: Cholecalciferol (D-3) 1,000 UNIT (25MCG) TABLET PO SCH (08:28)
[2019-04-23] MEDS: DilTIAZem CD (24hr) 180 MG CAP.ER.24H PO SCH (08:28)
[2019-04-23] MEDS: Aspirin 81 MG TAB.CHEW PO SCH (08:29)
[2019-04-23] MEDS: Furosemide 40 MG/4 ML VIAL IVP SCH (08:30)
[2019-04-23] MEDS: cefTRIAXone 1,000 MG in Water for inj. (sterile) 10 ML IVP SCH (08:31)
[2019-04-23] MEDS: amLODIPine 5 MG TABLET PO SCH (08:34)
[2019-04-23] MEDS: Insulin LISPRO 300 UNITS/3 ML VIAL SQ SCH ×2 (08:43→13:16)
[2019-04-23 11:39] VITALS: BP 180/78
[2019-04-23] MEDS ORDERED: *HR* Labetalol 20 MG/4 ML SYRINGE IVP ONE (13:07)
[2019-04-23] MEDS: Fluticasone Propionate Nasal 50 MCG/SPRAY BOTTLE NS SCH (13:15)
== END 2019-04-23 16:07 | DRG 246 ==
LOC: EMEROOARM 10:38 → 2ANU 10:38 → SUATTDRO 15:47 → 2NNU 04-15 12:20 → 2NENU 04-20 15:38
PROVIDERS: ADMIT Student in an Organized Health Care Education/Training Program; ATTEND Internal Medicine
PROC: ENDOEBX (2019-04-10 13:00)

== ENCOUNTER 2019-04-26 19:02 | Inpatient (IN) ==
[2019-04-27] MEDS ORDERED: Naloxone 0.4 MG/ML INJ IVP PRN (00:04)
[2019-04-27] MEDS ORDERED: Nitroglycerin 25 MG/250 ML INFUS..BTL IVC ONE (00:04)
--- NOTE | 2019-04-27 00:05 | Internal Med History&Physical ---
Date of Encounter: 04/26/19 Time of Encounter: 23:55 Internal Medicine - H&P: HPI Chief complaint: NSTEMI, possible PE Admitted From: Hospital to Hospital Transfer Plans for Post Hospital Care: Home History of present illness: Ms. Cortes is a 83 year old female Patient had been initially admitted to [facility] on the of this month and discharged on April [address] rehabilitation [address] she underwent a left heart catheter on April 17 that showed 85% stenosis and a drug-eluting stent was placed in the circumflex OM. Patient was then admitted to the [facility] inpatient service on the of this month for cardiac rehab. During her initial hospitalization she also had a GI bleed during her previous admission and therefore the initial management of her cardiac issues had to be delayed. Earlier today the patient was to be discharged from [facility] as she was showing improvement. However prior to her discharge she developed chest pain with shortness of breath and it was discovered that she had an elevated d-dimer and worsening renal insufficiency. It was felt patient should be transferred to [facility] for further workup of her chest pain and elevated d-dimer. She was started on a heparin drip prior to her transfer. Notable labs obtained prior to her transfer: CBC white count 8.0, hemoglobin 8.0, platelets 226. BMP: Sodium 128, potassium 3.8, creatinine 2.76, glucose 118 Trop: 0.09 D-dimer 1444 BNP: 514 EKG: Normal sinus rhythm, rate 63, QTC 496 ms. Unchanged from previous Upon my assessment, patient is resting in the hospital bed in mild distress secondary to pain. She has 5 out of 10 chest pain which has improved after the initiation of the nitro drip upon her arrival. She denies abdominal pain, nausea, vomiting, diarrhea and constipation. She still feels somewhat short of breath, and arrangements were made to put the patient on oxygen at time of her discharge from [facility]. He does have history of chronic kidney disease stage III. Her daughter is at bedside. She is a full code. Past Med Surg Social Fam HX - Past Medical History Medical history: CHF, coronary artery disease, GERD, GI bleed, hyperlipidemia, hypertension, renal disease, thyroid disease, other Additional medical history: Stage 3 kidney failure, diverticulitis, Diabetes Psychiatric history: anxiety - Past Surgical History Surgical History: non-contributory Additional surgical history: sinus surgery x5, eye surgeries x5, tubal ligation, tonisllectomy, left foot surgery, heart cath x 1 stent - Social History Smoking Status: Former smoker Smokeless Tobacco Status: No Alcohol use: none Drug use: none - Family History Mother Living Status: Father Living Status: Internal Medicine - H&P: Meds Alendronate Sodium [Fosamax] 70 mg PO CALIXTO 04/06/19 [History] Amitriptyline [Elavil] 25 mg PO HS 04/06/19 [History] Ezetimibe 10 mg PO DAILY 04/06/19 [History] Levothyroxine [Synthroid] 112 mcg PO QAM 04/06/19 [History] Sucralfate [Carafate] 1 gm PO QID 30 Days #120 oral.susp 04/12/19 [Rx] Aspirin [Lo-Dose Aspirin EC] 81 mg PO DAILY #60 tablet. 04/23/19 [Rx] Atorvastatin [Lipitor] 80 mg PO HS #90 tablet 04/23/19 [Rx] Carvedilol [Coreg] 25 mg PO BIDWM #120 tablet 04/23/19 [Rx] Clopidogrel [Plavix] 75 mg PO DAILY #90 tablet 04/23/19 [Rx] Diltiazem CD (24hr) [Cardizem CD] 360 mg PO DAILY #120 cap.er.24h 04/23/19 [Rx] Docusate [Colace] 100 mg PO BID PRN #60 capsule 04/23/19 [Rx] Ferrous Sulfate 325 mg PO BIDWM #60 tablet 04/23/19 [Rx] Furosemide [Lasix] 40 mg PO DAILY #60 tab 04/23/19 [Rx] Isosorbide MONOnitrate (24 HR) [Imdur] 120 mg PO DAILY #120 tab.er.24h 04/23/19 [Rx] Omeprazole [PriLOSEC] 40 mg PO BIDAC #120 capsule. 04/23/19 [Rx] amLODIPine [Norvasc] 10 mg PO DAILY #60 tablet 04/23/19 [Rx] hydrALAZINE [HydrALAZINE] 100 mg PO Q8HR #120 tablet 04/23/19 [Rx] Acetaminophen [Tylenol] 650 mg PO Q4HR PRN tablet 04/26/19 [Rx] Insulin LISPRO [HumaLOG] 0 units SQ HS vial 04/26/19 [Rx] Insulin LISPRO [HumaLOG] 0 units SQ TIDAC vial 04/26/19 [Rx] Polyethylene Glycol 3350 [MiraLAX] 17 gm PO DAILY PRN powd.pack 04/26/19 [Rx] Sulfamethoxazole/Trimeth DS [Bactrim Ds] 0.5 each PO BID 5 Days #5 tablet 04/26/19 [Rx] hydrOXYzine pamoate [Vistaril] 25 mg PO Q8HR PRN #10 capsule 04/26/19 [Rx] Allergy/AdvReac Type Severity Reaction Status Date / Time codeine Allergy Nausea, Verified 04/06/19 11:59 Vomiting lisinopril Allergy Cough Verified 04/06/19 11:59 Penicillins Allergy Hives Verified 04/06/19 11:59 tramadol Allergy Joint Pain Verified 04/06/19 11:59 All Systems PM: A 10-system review of systems was performed and is negative for pertinent findings except as documented above in the HPI. - Constitutional General appearance: Present: cooperative, mild distress, A&O X 3, pleasant, answers questions appropriately Exam: - - Head Head exam: Present: normal inspection - Eye Eye exam: Present: EOMI, normal appearance - Respiratory Respiratory exam: Present: CTAB. Absent: rales, respiratory distress, rhonchi, wheezes - Cardiovascular Cardiovascular exam: Present: RRR. Absent: diastolic murmur, systolic murmur - GI/Abdominal GI/Abdominal exam: Present: normal bowel sounds, soft. Absent: tenderness - Extremities Exam Extremities exam: Present: warm, radial pulses palpable and symmetrical. Absent: calf tenderness, pedal edema, tenderness - Neurological Exam Neurological exam: Present: no focal deficits, strengths equal and symetr throughout. Absent: motor sensory deficit, facial droop, speech deficit - Skin Skin exam: Present: dry, normal color, warm Internal Med - H&P Results - Labs CBC & Chem 7: 04/27/19 00:53 04/27/19 00:53 - Assessment and Plan (1) D-dimer, elevated Current Visit: Yes Status: Acute Assessment and plan: Patient's d-dimer was elevated at 1444. Patient also had shortness of breath. Due to her kidney function we are unable to check a CT angiogram. VQ scan in the morning Continue heparin ip Oxygen supplementation as needed (2) Chest pain Current Visit: No Status: Acute Assessment and plan: Patient had another episode of chest pain, after being treated with a stent during her previous admission. Troponin was 0.09 at [facility], increasing to 0.11 upon arrival. She has been started on heparin drip as well as a nitro drip. We will need to monitor closely considering patient's recent GI bleed. Continue heparin drip Continue nitro drip Cardiology consultation Qualifiers: Chest pain type: other chest pain Qualified Code(s): R07.89 - Other chest pain; R07.8 - Other chest pain (3) Elevated troponin Current Visit: No Status: Acute Assessment and plan: Troponin 0.11 upon arrival increased from [facility]. Management as above Continue heparin drip (4) Diabetes Current Visit: No Status: Chronic Assessment and plan: Patient is an insulin dependent diabetic Monitor sugars every 6 hours NPO Low dose insulin sliding scale as needed Hold home meds. Qualifiers: Diabetes mellitus type: type 2 Diabetes mellitus detention insulin use: without exterminator helper use Diabetes mellitus complication status: with other specified complication Qualified Code(s): E11.69 - Type 2 diabetes mellitus with other specified complication (5) Shortness of breath Current Visit: No Status: Acute Assessment and plan: Patient is elevated d-dimer, concern for possible PE. VQ scan morning Continue heparin drip Oxygen supplementation as needed (6) Acute on chronic kidney failure Current Visit: No Status: Acute Assessment and plan: Patient has worsening renal function, most recent creatinine 2.77. Patient has history of diastolic congestive heart failure with an ejection fraction of 60%. Continue to monitor Avoid fluid overload Gentle fluid hydration Qualifiers: Acute renal failure type: unspecified Chronic kidney disease stage: stage 3 (moderate) Qualified Code(s): N17.9 - Acute kidney failure, unspecified; N18.3 - Chronic kidney disease, stage 3 (moderate) (7) DVT prophylaxis Current Visit: No Status: Acute Assessment and plan: Heparin drip - Time Spent With Patient Total time spent is greater than 50% in coordination of care (as documented) at patient's floor/unit and/or counseling patient: Greater than 35 minutes
[2019-04-27] MEDS: Nitroglycerin 25 MG/250 ML INFUS..BTL IVC SCH (00:10)
[2019-04-27] MEDS ORDERED: *HR* Heparin 5,000 UNIT/ML VIAL IVP PRN ×2 (00:13)
[2019-04-27] MEDS ORDERED: Heparin 25,000 UNIT/250 ML D5W 25,000 UNIT/250 ML IV.SOLN IVC SCH (00:15)
[2019-04-27 01:04] LABS: Basophils # 0.1 K/mcL (0.0-0.2); Basophils % 0.5 %; Eosinophils # 0.6 K/mcL (0.0-0.6); Eosinophils % 5.4 %; Hematocrit 25.6 % (35.3-44.9); Hemoglobin 8.2 g/dL (11.5-15.4); Immature Granulocytes % 0.8 % (0-4); Lymphocytes # 1.5 K/mcL (0.6-4.6); Lymphocytes % 14.6 %; Mean Corpuscular Hemoglobin 26.2 pg (28.0-33.3); Mean Corpuscular Volume 81.8 fL (83.0-100.0); Mean Platelet Volume 10.1 fL (9.4-12.4); Monocytes # 1.1 K/mcL (0.0-1.3); Neutrophils # 7.2 K/mcL (1.6-8.9); Platelet Count 242 K/mcL (140-400); Red Blood Count 3.13 M/mcL (3.82-4.97); Segmented Neutrophils % 68.7 %; White Blood Count 10.5 K/mcL (4.3-11.1)
[2019-04-27 01:13] LABS: INR 1.2; Prothrombin Time 13.1 Seconds (9.4-12.1)
[2019-04-27 01:15] LABS: Heparin anti-factor XA UFH 1.64 IU/mL (0.30-0.70)
[2019-04-27] MEDS ORDERED: hydrOXYzine pamoate 25 MG CAPSULE PO PRN (01:23)
[2019-04-27 01:24] LABS: Albumin 3.6 g/dL (3.5-5.7); Albumin/Globulin Ratio 1.4 (1.1-2.2); Bilirubin,Total 0.3 mg/dL (0.3-1.0); Calcium 8.8 mg/dL (8.6-10.3); Globulin 2.6 g/dL (2.4-3.5); Phosphorous 3.2 mg/dL (2.7-4.5); Potassium 3.9 mEq/L (3.5-5.1); Total Protein 6.2 g/dL (6.4-8.9)
[2019-04-27] MEDS ORDERED: Dextrose Gel 15 GM/37.5 ML TUBE PO PRN ×2 (02:37)
[2019-04-27] MEDS ORDERED: D5% in Water 1,000 ML IVC PRN (02:37)
[2019-04-27] MEDS ORDERED: *HR* Dextrose 50 % in Water (Syg) 50 ML SYRINGE IVP PRN (02:37)
[2019-04-27] MEDS ORDERED: 0.9 % Sodium Chloride 1,000 ML IVC ONE (02:50)
[2019-04-27] MEDS ORDERED: Insulin LISPRO 300 UNITS/3 ML VIAL SQ SCH (06:00)
--- NOTE | 2019-04-27 07:08 | Event Note ---
Date of Encounter: 04/27/19 Time of Encounter: 08:20 Ms rojas was admitted from [facility] due to chest pain. She was recently dc from [facility] to [facility] with GEMA to Circ on 04/17/19, GIB with egd showing erosive esophagitis and hematuria with urology planning to eval further outpt. awake, daughter at bedside. Her pain is still present, minimal, worse with any movemeent or deep breathing, nothing has made it better. She is not sob on o2 currently. Denies cough, wheezing or sputum production, no hemoptysis. She d enies any brbpr or melena, as well as any hematuria since discharge to [facility]. aware of bleeding risk on hep gtt and she will notify us of any evidence of bleeding. aware she is awaiting VQ scan. i informed her of my discussion with Dr Craven. She denies pain with swallowing, or that chest pain started after eating (given her esophagitis history) gen- alert, awake,appears stated age eyes- pupils equal round , no conjunctival pallor cv- reg rate and rhythm, normal s1,s2, no murmurs appreciated, no le edema, no jvd, no reproducible chest pain to palpation chest wall lungs- ctabl, no wheezing, rhonchi or crackles, normal resp effort on o2 nc abd- soft, non tender, non distended, + bs neuro- AAOx3, CN grossly intact Chest Pain Mild Trop Elevation 0.11 peak (0.09-0.11) CAD hx s/p GEMA to Circ 04/17/19 I have discussed with dr Craven- he does not htink this is cardiac in nature, nor that she requires a cardiology eval at this time- rec is to put back on home meds, wean off nitro gtt, check limited echo and work up other potential causes -plan communicated to RN, will wean nitro gtt with goal sbp <140, will add back imdur once off drip -echo is pending -VQ scan ordered and cont hep gtt for possible PE -cont home carafate and PPI for esophagitis as could be contributing Acute Hypoxic Resp Failure CXR without any acute changes Dimer elevated -not CTA candidate given SHANTANU on CKD, VQ scan sstat, cont hep gtt, check echo for heart strain, doppler bl le, prn o2 nc DM- SSI and prn hypoglycemics SHANTANU on CKD- received gentle hydration overnight, creat stable/unchanged today, hold home lasix, check UA and renal US as well as PVR GIB recent hx w Erosive Esohpagitis Clinical picture not c/w esophageal perf - cont PPI and carafate hematuria hx- stable, fu with urology outpt Chronic anemia at baseline- monitor with serial hgbs on hep gtt, cont iron, keep hgb 8 or greater given cardiac history
[2019-04-27 07:14] LABS: Hematocrit 24.8 % (35.3-44.9); Mean Corpuscular HGB Conc 32.3 g/dL (31.6-35.5); Mean Corpuscular Hemoglobin 26.5 pg (28.0-33.3); Mean Corpuscular Volume 82.1 fL (83.0-100.0); Mean Platelet Volume 10.3 fL (9.4-12.4); Platelet Count 243 K/mcL (140-400); Red Blood Count 3.02 M/mcL (3.82-4.97); Red Cell Distribution Width 17.1 % (11.5-14.5); White Blood Count 9.7 K/mcL (4.3-11.1)
[2019-04-27 07:34] LABS: Calcium 8.7 mg/dL (8.6-10.3)
[2019-04-27 09:45] LABS: Bilirubin,Urine Negative (Negative); Blood,Urine Negative (Negative); Clarity,Urine Clear (Clear); Color,Urine Yellow (Yellow); Glucose,Urine (UA) Normal (Normal); Ketones,Urine Trace mg/dL (Negative); Leukocyte Esterase,Urine Small (Negative); Nitrite,Urine Negative (Negative); PH,Urine 5.5 pH Units (5.0-8.0); Protein,Urine >=300 mg/dL (Neg-Trace); Specific Gravity,Urine 1.018 (1.010-1.025); Urobilinogen,Urine Normal (Normal)
[2019-04-27 09:48] LABS: Hyaline Casts,Urine None Seen per lpf (None-Few); Squamous Epithelial Cell,Urine Many per lpf (None-Few); WBC,Urine 30-50 per hpf (0-3)
[2019-04-27] MEDS: Diltiazem CD (24hr) 180 MG CAPSULE PO SCH (09:58)
[2019-04-27] MEDS: amLODIPine 5 MG TABLET PO SCH (09:58)
[2019-04-27] MEDS: Sucralfate 1 GM TABLET PO SCH ×2 (09:58→15:53)
[2019-04-27] MEDS: Aspirin Enteric Coated 81 MG Tablet PO SCH (09:58)
[2019-04-27 10:02] LABS: RBC,Urine 0-3 per hpf (0-3)
[2019-04-27 10:06] LABS: Renal Epithelial Cells,Urine Many per hpf (None-Few)
[2019-04-27 10:07] LABS: Bacteria,Urine Moderate per hpf (None-Few)
--- NOTE | 2019-04-27 12:08 | Electrocardiograph Report ---
[place] [id number] Test Date: 2019-04-26 Pat Name: Nandini Cortes Department: 109 Room: 10 Gender: F Proof Inspector: : [id number] Requested By: Keo Conte Order Number: [id number] Reading MD: Maynor Bhakta Measurements Intervals [place] Rate: 63 P: 42 CO: 184 QRS: 34 QRSD: 162 T: 237 QT: 488 QTc: 496 Interpretive Statements SINUS RHYTHM LEFT BUNDLE BRANCH BLOCK Electronically Signed On 04-27-2019 12:07:31 EDT by Maynor Bhakta
[2019-04-27 14:27] LABS: Hematocrit 26.7 % (35.3-44.9); Hemoglobin 8.6 g/dL (11.5-15.4)
[2019-04-27] MEDS: hydrALAZINE 25 MG TABLET PO SCH (15:53)
[2019-04-27] MEDS: Acetaminophen 325 MG TABLET PO PRN (15:56)
[2019-04-27] MEDS: Insulin LISPRO 300 UNITS/3 ML VIAL SQ SCH (16:00)
[2019-04-27] MEDS: hydrOXYzine pamoate 25 MG CAPSULE PO PRN (19:35)
[2019-04-27 20:07] LABS: Hematocrit 24.8 % (35.3-44.9)
[2019-04-28] MEDS: Insulin LISPRO 300 UNITS/3 ML VIAL SQ SCH ×5 (00:43→21:51)
[2019-04-28] MEDS: hydrALAZINE 25 MG TABLET PO SCH ×3 (00:43→16:35)
[2019-04-28] MEDS: *HR* Heparin 5,000 UNIT/ML VIAL SQ SCH ×4 (00:43→21:29)
[2019-04-28] MEDS: Sucralfate 1 GM TABLET PO SCH ×6 (00:43→23:34)
[2019-04-28 01:48] LABS: Hematocrit 25.2 % (35.3-44.9)
[2019-04-28] MEDS ORDERED: *HR* LORazepam 2 MG/ML VIAL IVP ONE ×2 (03:51→21:44)
[2019-04-28] MEDS: Nitroglycerin 25 MG/250 ML INFUS..BTL IVC SCH (04:01)
[2019-04-28 04:41] LABS: Basophils % 0.2 %; Eosinophils # 0.1 K/mcL (0.0-0.6); Eosinophils % 0.7 %; Hematocrit 25.6 % (35.3-44.9); Hemoglobin 8.1 g/dL (11.5-15.4); Immature Granulocytes % 1.2 % (0-4); Lymphocytes # 1.3 K/mcL (0.6-4.6); Lymphocytes % 15.1 %; Mean Corpuscular HGB Conc 31.6 g/dL (31.6-35.5); Mean Corpuscular Hemoglobin 26.5 pg (28.0-33.3); Mean Corpuscular Volume 83.7 fL (83.0-100.0); Mean Platelet Volume 10.6 fL (9.4-12.4); Monocytes # 0.6 K/mcL (0.0-1.3); Monocytes % 7.5 %; Neutrophils # 6.4 K/mcL (1.6-8.9); Platelet Count 259 K/mcL (140-400); Red Blood Count 3.06 M/mcL (3.82-4.97); Red Cell Distribution Width 17.2 % (11.5-14.5); Segmented Neutrophils % 75.3 %; White Blood Count 8.5 K/mcL (4.3-11.1)
[2019-04-28 05:01] LABS: Calcium 8.8 mg/dL (8.6-10.3); Magnesium 2.1 mg/dL (1.6-2.6); Potassium 4.2 mEq/L (3.5-5.1)
[2019-04-28 05:05] LABS: Troponin I 0.06 ng/mL (< 0.04)
[2019-04-28] MEDS: Isosorbide MONOnitrate (24 HR) 60 MG TAB.ER.24H PO SCH (07:11)
[2019-04-28] MEDS: amLODIPine 5 MG TABLET PO SCH (07:11)
[2019-04-28] MEDS: Aspirin Enteric Coated 81 MG Tablet PO SCH (07:11)
[2019-04-28] MEDS: Diltiazem CD (24hr) 180 MG CAPSULE PO SCH (07:11)
--- NOTE | 2019-04-28 07:55 | Internal Med Progress Note ---
Hospitalist Progress Note - Encounter Date of Encounter: 04/28/19 Time of Encounter: 08:30 - Subjective Interval History: awake, daughter at bedside. She had a stressful night with anxiety and sob. She is unsure which started first. Episode occurred when she woke from sleep and needed to get on bedpan to urinate. No staff was immediately available so her daughter assisted her. She had trouble sitting up and got upset and sob and anxious trying. Daughter notes she is a mouth breather and wasn't fully getting the oxygen placed via NC. Pt notes the air is dry as well which makes it feel like she can't breath. Family denies a long standing anxiety problem though pt admits since last admit and while at [place] she has felt anxious about being sick. She got ativan which made her drowsy and calm. Daughter notes last night and in past she gets sedated with ativan, and acts bizarrely for awhile after. Chest pressure during episode last night and denies cp, pressure otherwise yesterday or tooday. No palpitations, crockett or vision changes. We discussed all of her testing and her renal function and fluid overload. She and daughter participated in conversation, showed good understanding of her diagnoses and plans and all questions answered. She is agreeable to trying buspar, humidified air and oxymask should she have another epsiode of sob with anxiety. - Exam Vitals: Temp Pulse Resp BP Pulse Ox 97.8 F 78 18 174/71 90 04/28/19 07:03 04/28/19 07:20 04/28/19 07:03 04/28/19 07:03 04/28/19 07:03 Exam: gen- alert, awake,appears stated age eyes- pupils equal round cv- reg rate and rhythm, normal s1,s2, no murmurs appreciated, +pitting le edema to knees, + pitting bl hands lungs- ctabl, no wheezing, rhonchi ant/lat cortez, normal resp effort on o2 nc abd- soft, non tender, non distended, + bs neuro- AAOx3, CN grossly intact skin- warm dry normal color - Assessment and Plan (1) Chest pain Current Visit: Yes Status: Resolved (2) Elevated troponin Current Visit: Yes Status: Acute (3) Acute on chronic kidney failure Current Visit: Yes Status: Acute (4) Diabetes Current Visit: Yes Status: Chronic (5) D-dimer, elevated Current Visit: Yes Status: Acute (6) Acute and chronic respiratory failure with hypoxia Current Visit: Yes Status: Acute (7) Chronic anemia Current Visit: Yes Status: Acute (8) Acute on chronic diastolic (congestive) heart failure Current Visit: Yes Status: Acute - Summary of Assessment and Plan Summary of Assessment and Plan: Acute Hypoxic Resp Failure 2/2 Fluid Overload CXR without any acute changes Dimer elevated with VQ scan low prob PE, + vsc congestion and pleural effusion, BL Dopplers neg for DVT, Echo w/o evidence of heart strain -prn o2 nc, oxymask + humidified air for comfort Fluid Overload likely 2/2 SHANTANU on CKD + Acute on Chronic HFpEF Echo 04/27 EF 60%, septal motion c/w BBB, trivial pericardial effusion, no tamponade -have consulted nephro for further recommendations, hold diuresis at this time as resp status is stable Acute on Chronic HFpEF- cont tarsha emed regimen, diuresis as above CAD s/p NSTEMI and Circ stent 04/17/2019 Chest pain, elevated trop (mild and adynamic), resolved HTN -d/w Dr Craven on admit as noted previously, cards did not see in consult -cont home med regimen for bp and monitor for adjustments needed, goal bp is 140/90, cont DAPT and CAD home med regimen DM- SSI and prn hypoglycemics SHANTANU on CKD- creat stable/unchanged today, but more apparent fluid overload, hold home lasix, renal US pending, UA with significant protenuria, nephro consulted GIB recent hx w Erosive Esohpagitis Clinical picture not c/w esophageal perf - cont PPI and carafate hematuria hx- stable, fu with urology outpt Chronic anemia at baseline- has maintained goal > or equal to hgb 8, now off hep gtt since yesterday, can check daily unless evidence of bleeding, cont iron, Anxiety- trial low dose standing buspa, cont home prn vistaril, try to avoid ativan given her prior hx of delirium with it Internal Medicine: Result - Labs CBC & Chem 7: 04/28/19 04:00 04/28/19 04:00 Labs: Short CBC 04/27/19 04/27/19 04/28/19 Range/Units 14:19 19:45 01:00 WBC (4.3-11.1) K/mcL Hgb 8.6 L 8.0 L 8.0 L (11.5-15.4) g/dL Hct 26.7 L 24.8 L 25.2 L (35.3-44.9) % Plt Count (140-400) K/mcL Neutrophils # (1.6-8.9) K/mcL 04/28/19 Range/Units 04:00 WBC 8.5 (4.3-11.1) K/mcL Hgb 8.1 L (11.5-15.4) g/dL Hct 25.6 L (35.3-44.9) % Plt Count 259 (140-400) K/mcL Neutrophils # 6.4 (1.6-8.9) K/mcL BMP 04/28/19 04:00 Sodium 131 L Potassium 4.2 Chloride 100 Carbon Dioxide 17 L BUN 45 H Creatinine 2.89 H Glucose 94 Calcium 8.8 Cardiac Enzymes 04/28/19 Range/Units 04:00 Troponin I 0.06 H* (< 0.04) ng/mL Urine 04/27/19 Range/Units 09:19 Urine Color Yellow (Yellow) Urine Clarity Clear (Clear) Urine pH 5.5 (5.0-8.0) pH Units Ur Specific [place] 1.018 (1.010-1.025) Urine Protein >=300 H (Neg-Trace) mg/dL Urine Glucose (UA) Normal (Normal) mg/dL - ABG Interpretation ABG results: PT/INR, D-dimer PT 13.1 Seconds (9.4-12.1) H 04/27/19 00:53 - Impressions Impressions Echocardiogram Limited Views 04/27/19 08:12 Impressions: LVEF 60%. Atypical septal motion consistent with bundle branch block. Mildly dilated left atrium. There is a trivial pericardial effusion present. There is no echocardiographic evidence of tamponade. Left Ventricular Wall Motion: Rest Echo Findings All wall segments showed normal motion. Findings: Study Quality * Technically adequate exam. ECG Findings * Sinus tachycardia with BBB. * Left Atrium * Mildly dilated left atrium. IVC * Normal IVC dimensions and inspiratory collapse. Pericardium * There is a trivial pericardial effusion present. * There is no echocardiographic evidence of tamponade. Left Ventricle * Atypical septal motion consistent with bundle branch block. * LVEF 60%. Pulmonary Perfusion Imaging 04/27/19 08:30 IMPRESSION: Low probability for pulmonary embolus. D/ / Zaid Garza MD / Zaid Garza MD Interpreting Provider: Zaid Garza MD Consult Discharge Plan - Plan Referrals: Deysi Sanchez, SENIOR IT BUSINESS ANALYST [Primary Care Provider] - (1) Chest pain Qualifiers: Chest pain type: other chest pain Qualified Code(s): R07.89 - Other chest pain; R07.8 - Other chest pain (3) Acute on chronic kidney failure Qualifiers: Acute renal failure type: unspecified Chronic kidney disease stage: stage 3 (moderate) Qualified Code(s): N17.9 - Acute kidney failure, unspecified; N18.3 - Chronic kidney disease, stage 3 (moderate) (4) Diabetes Qualifiers: Diabetes mellitus type: type 2 Diabetes mellitus machine long goods helper insulin use: without [facility] use Diabetes mellitus complication status: with other specified complication Qualified Code(s): E11.69 - Type 2 diabetes mellitus with other specified complication
[2019-04-28] MEDS ORDERED: NON-FORMULARY MEDICATION 1 EACH EACH (Ezetimibe 10 MG) PO SCH (09:00)
--- NOTE | 2019-04-28 16:45 | Nephrology Consult Note ---
Date of Encounter: 04/28/19 Time of Encounter: 14:00 Assessment and Plan (1) SHANTANU (acute kidney injury) Current Visit: Yes Status: Acute Eevated SCr in the setting of decreased po intake, volume overload and failure to thrive Will check urine studies Willc heck uric acid and cpk levels Discussed at length poor renal fxn with pt and family but no acute indication for LAB DIRECTOR at this time Avoid nephrotoxins if possible US of kidney from last admission this month unremarkable (2) CKD (chronic kidney disease) stage 4, GFR 15-29 ml/min Current Visit: No Status: Acute Baseline GFR in the 20s (3) Acute on chronic diastolic (congestive) heart failure Current Visit: Yes Status: Acute Strict I/Os Fluid restriction advised Will dose with albumin and lasix today once Will consider decreasing amlodipine to 5mg daily as can cause edeme (4) Chest pain Current Visit: No Status: Suspected Per primary, +d-dimer noted Qualifiers: Chest pain type: chest pain due to myocardial ischemia Ischemic chest pain type: unstable angina pectoris Qualified Code(s): I20.0 - Unstable angina History of Present Illness - Reason for Consult Consult date: 04/28/19 Acute Kidney Injury, Chronic Kidney Disease Requesting physician: Tana Juarez - History of Present Illness 83 y o female with PMH of CAD s/p recent LHC with stent placed, GI bleed, HTN, DM and stage 4 CKD admitted from [place] after recent discharge 3 days prior with chest pain with SOB. Renal consulted todau given poor renal fxn with SCr at 2.89, GFR 16 typically with GFR in the 20s and visibly dyspneic with volume overload noted. Pt seen and examined with family at bedside. Last echo noted with EF at 60%. Pt noted very weak and unable to speak much due to fatigue and SOB. Past Med Surg Social Fam HX - Past Medical History Medical history: CHF, coronary artery disease, diabetes, GERD, GI bleed, hyperlipidemia, hypertension, myocardial infarction, renal disease, thyroid disease, other Additional medical history: Stage 3 kidney failure, diverticulitis, Diabetes Psychiatric history: anxiety - Past Surgical History Surgical History: carotid endarterectomy Additional surgical history: sinus surgery x5, eye surgeries x5, tubal ligation, tonisllectomy, left foot surgery, heart cath x 1 stent, Left CEA - Social History Smoking Status: Former smoker Smokeless Tobacco Status: No Alcohol use: none Drug use: none - Family History Mother Living Status: Father Living Status: Medications and Allergies Alendronate Sodium [Fosamax] 70 mg PO CALIXTO 04/06/19 [History] Amitriptyline [Elavil] 25 mg PO HS 04/06/19 [History] Ezetimibe 10 mg PO DAILY 04/06/19 [History] Levothyroxine [Synthroid] 112 mcg PO QAM 04/06/19 [History] Sucralfate [Carafate] 1 gm PO QID 30 Days #120 oral.susp 04/12/19 [Rx] Aspirin [Lo-Dose Aspirin EC] 81 mg PO DAILY #60 tablet. 04/23/19 [Rx] Atorvastatin [Lipitor] 80 mg PO HS #90 tablet 04/23/19 [Rx] Carvedilol [Coreg] 25 mg PO BIDWM #120 tablet 04/23/19 [Rx] Clopidogrel [Plavix] 75 mg PO DAILY #90 tablet 04/23/19 [Rx] Diltiazem CD (24hr) [Cardizem CD] 360 mg PO DAILY #120 cap.er.24h 04/23/19 [Rx] Docusate [Colace] 100 mg PO BID PRN #60 capsule 04/23/19 [Rx] Ferrous Sulfate 325 mg PO BIDWM #60 tablet 04/23/19 [Rx] Furosemide [Lasix] 40 mg PO DAILY #60 tab 04/23/19 [Rx] Isosorbide MONOnitrate (24 HR) [Imdur] 120 mg PO DAILY #120 tab.er.24h 04/23/19 [Rx] Omeprazole [PriLOSEC] 40 mg PO BIDAC #120 capsule. 04/23/19 [Rx] amLODIPine [Norvasc] 10 mg PO DAILY #60 tablet 04/23/19 [Rx] hydrALAZINE [HydrALAZINE] 100 mg PO Q8HR #120 tablet 04/23/19 [Rx] Acetaminophen [Tylenol] 650 mg PO Q4HR PRN tablet 04/26/19 [Rx] Insulin LISPRO [HumaLOG] 0 units SQ HS vial 04/26/19 [Rx] Insulin LISPRO [HumaLOG] 0 units SQ TIDAC vial 04/26/19 [Rx] Polyethylene Glycol 3350 [MiraLAX] 17 gm PO DAILY PRN powd.pack 04/26/19 [Rx] Sulfamethoxazole/Trimeth DS [Bactrim Ds] 0.5 each PO BID 5 Days #5 tablet 04/26/19 [Rx] hydrOXYzine pamoate [Vistaril] 25 mg PO Q8HR PRN #10 capsule 04/26/19 [Rx] Allergy/AdvReac Type Severity Reaction Status Date / Time codeine Allergy Nausea, Verified 04/27/19 13:50 Vomiting lisinopril Allergy Cough Verified 04/27/19 13:50 Penicillins Allergy Hives Verified 04/27/19 13:50 tramadol Allergy Joint Pain Verified 04/27/19 13:50 Review of Systems All Systems review (narrative): The rest of the systems are negative Constitutional: fatigue (admits) Cardiovascular: chest pain (admits), leg edema (admits) Respiratory: dyspnea (admits) Exam - Vital Signs Vital signs: Initial Vital Signs Temp Pulse Resp BP Pulse Ox 97.8 F 63 20 167/54 92 04/27/19 00:00 04/27/19 00:00 04/27/19 00:00 04/27/19 00:00 04/27/19 00:00 Vital Signs - Last 8 Hours Temp Pulse Resp BP Pulse Ox 04/28/19 16:17 97.5 F L 69 19 126/50 93 04/28/19 11:04 97.6 F 75 20 146/71 94 Intake and Output 04/28/19 04/28/19 04/28/19 07:59 15:59 23:59 Intake Total 240 / 240 Output Total 200 / 200 Balance 40 / 40 Intake: Oral 240 / 240 Output: Urine 200 / 200 Other: Meal Lunch Percent of Meal Consumed 10% Weight 82.3 kg Blood Glucose* 89 106 187 Patient Weight 04/28/19 23:59 Weight 82.3 kg - General Appearance General appearance: chronically ill, fatigue, frail EENT: ATNC, mucous membranes moist Neck: no JVD, supple Additional Comments: good areation with decreased BS bases bilat Cardiology: edema (LE/UE bilat), normal S1, normal S2 Gastrointestinal: no tenderness, no guarding Integumentary: warm and dry Neurologic: no focal deficit Musculoskeletal: no deformities Psychiatric: mood/affect appropriate, cooperative Results - Lab Results 04/28/19 04:00 04/28/19 04:00 Most recent lab results 04/28/19 04:00 Calcium 8.8 Magnesium 2.1 Consult Discharge Plan - Plan Referrals: Deysi Sanchez CONGRESSIONAL DISTRICT AIDE [Primary Care Provider] -
[2019-04-28] MEDS ORDERED: Albumin 25% 25gram/100mL 25 GM/100 ML IV.SOLN IVPB ONE (16:52)
[2019-04-28] MEDS ORDERED: Furosemide 40 MG/4 ML VIAL IVP ONE (16:52)
[2019-04-28 17:40] LABS: Uric Acid 10.3 mg/dL (2.3-7.6)
[2019-04-28] MEDS: hydrOXYzine pamoate 25 MG CAPSULE PO PRN (21:29)
[2019-04-29] MEDS: Nitroglycerin 25 MG/250 ML INFUS..BTL IVC SCH (01:34)
[2019-04-29] MEDS: hydrALAZINE 25 MG TABLET PO SCH ×3 (04:32→16:12)
[2019-04-29 05:14] LABS: Basophils % 0.4 %; Eosinophils # 0.1 K/mcL (0.0-0.6); Eosinophils % 0.5 %; Hematocrit 23.6 % (35.3-44.9); Hemoglobin 7.7 g/dL (11.5-15.4); Immature Granulocytes % 1.3 % (0-4); Lymphocytes # 1.5 K/mcL (0.6-4.6); Lymphocytes % 16.1 %; Mean Corpuscular HGB Conc 32.6 g/dL (31.6-35.5); Mean Corpuscular Hemoglobin 27.1 pg (28.0-33.3); Mean Corpuscular Volume 83.1 fL (83.0-100.0); Mean Platelet Volume 10.7 fL (9.4-12.4); Monocytes # 0.7 K/mcL (0.0-1.3); Monocytes % 7.4 %; Neutrophils # 6.8 K/mcL (1.6-8.9); Platelet Count 256 K/mcL (140-400); Red Blood Count 2.84 M/mcL (3.82-4.97); Segmented Neutrophils % 74.3 %; White Blood Count 9.2 K/mcL (4.3-11.1)
[2019-04-29 05:31] LABS: Calcium 8.7 mg/dL (8.6-10.3); Magnesium 2.1 mg/dL (1.6-2.6); Potassium 4.1 mEq/L (3.5-5.1)
[2019-04-29] MEDS: *HR* Heparin 5,000 UNIT/ML VIAL SQ SCH ×3 (06:02→21:51)
[2019-04-29] MEDS: Insulin LISPRO 300 UNITS/3 ML VIAL SQ SCH ×4 (07:44→21:44)
[2019-04-29] MEDS ORDERED: 0.9 % Sodium Chloride 250 ML IVC SCH (07:45)
[2019-04-29] MEDS: Diltiazem CD (24hr) 180 MG CAPSULE PO SCH (07:53)
[2019-04-29] MEDS: Sucralfate 1 GM TABLET PO SCH ×4 (07:53→21:51)
[2019-04-29] MEDS: Aspirin Enteric Coated 81 MG Tablet PO SCH (07:53)
[2019-04-29] MEDS: Isosorbide MONOnitrate (24 HR) 60 MG TAB.ER.24H PO SCH (07:53)
[2019-04-29] MEDS: amLODIPine 5 MG TABLET PO SCH ×2 (07:54→10:16)
[2019-04-29 09:57] LABS: Sodium, Urine 15.4 mEq/L
--- NOTE | 2019-04-29 10:17 | Internal Med Progress Note ---
<Tana Juarez - Last Filed: 04/29/19 12:25> Hospitalist Progress Note - Encounter Date of Encounter: 04/29/19 - Exam Vitals: Temp Pulse Resp BP Pulse Ox 97.2 F L 83 20 145/62 95 04/29/19 11:24 04/29/19 11:24 04/29/19 11:24 04/29/19 11:24 04/29/19 11:24 - Assessment and Plan (1) Chest pain Current Visit: Yes Status: Resolved (2) Elevated troponin Current Visit: Yes Status: Acute (3) Acute on chronic kidney failure Current Visit: Yes Status: Acute (4) Diabetes Current Visit: Yes Status: Chronic (5) D-dimer, elevated Current Visit: Yes Status: Acute (6) Acute and chronic respiratory failure with hypoxia Current Visit: Yes Status: Acute (7) Chronic anemia Current Visit: Yes Status: Acute (8) Acute on chronic diastolic (congestive) heart failure Current Visit: Yes Status: Acute - Time Spent with Patient Total time spent is greater than 50% in coordination of care (as documented) at patient's floor/unit and/or counseling patient: Internal Medicine: Result - Labs CBC & Chem 7: 04/29/19 04:40 04/29/19 04:40 Labs: Short CBC 04/29/19 Range/Units 04:40 WBC 9.2 (4.3-11.1) K/mcL Hgb 7.7 L (11.5-15.4) g/dL Hct 23.6 L (35.3-44.9) % Plt Count 256 (140-400) K/mcL Neutrophils # 6.8 (1.6-8.9) K/mcL BMP 04/29/19 04:40 Sodium 132 L Potassium 4.1 Chloride 99 Carbon Dioxide 19 L BUN 56 H Creatinine 3.23 H Glucose 99 Calcium 8.7 - ABG Interpretation ABG results: PT/INR, D-dimer PT 13.1 Seconds (9.4-12.1) H 04/27/19 00:53 Consult Discharge Plan - Plan Referrals: Deysi Sanchez, SOFTWARE APPLICATIONS SPECIALIST [Primary Care Provider] - - Attending Attestation I examined this patient and my medical decision-making was reviewed with the Resident Physician Dr Viera. I agree with the documented findings, disposition and treatment plan as described except to the extent set forth below. Ms Cortes is admitted with hypoxic resp failure and fluid overload awake, daughter at bedside, she cont to have anxiety attacks, denies cp, pressure, + wheezing, + le edema but improved UE edema. discussed with pt rn, she gave pt buspar and placed on oxymask with resolution of anxiety, did not require her prn vistaril, no o2 sat drops during episode gen- alert, awake,appears stated age cv- reg rate and rhythm, normal s1,s2, no murmurs appreciated, 1+ pitting to bl knees, trace pitting left hand lungs- faint exp wheezing, , no rhonchi or crackles, + diminished bases, normal resp effort on oxymask neuro- AAOx3, CN grossly intact Acute Hypoxic Resp Failure 2/2 Fluid Overload CXR without any acute changes Dimer elevated with VQ scan low prob PE, + vsc congestion and pleural effusion, BL Dopplers neg for DVT, Echo w/o evidence of heart strain -prn o2 nc, oxymask Fluid Overload likely 2/2 SHANTANU on CKD + Acute on Chronic HFpEF Echo 04/27 EF 60%, septal motion c/w BBB, trivial pericardial effusion, no tamponade -nephro following, s/p albumin + lasix w some improvement, monitor w prbc today Acute on Chronic HFpEF- cont home med regimen, diuresis as above CAD s/p NSTEMI and Circ stent 04/17/2019 Chest pain, elevated trop (mild and adynamic), resolved HTN d/w Dr Craven on admit as noted previously, cards did not see in consult -reduce norvasc as per nephro d/t edema, cont other meds, BP is at goal -cont DAPT and CAD home med regimen SHANTANU on CKD- diuresis today as per nephro, renal US pending Chronic anemia at baseline- hgb now less than 8 (7.7), 1 unit prbc ordered, nephro aware, watching for fluid overloadnow off hep gtt since yesterday, can c heck daily unless evidence of bleeding, cont iron, further dx and plan as noted by resident <Param Viera - Last Filed: 04/29/19 17:17> Hospitalist Progress Note - Encounter Date of Encounter: 04/29/19 Time of Encounter: 09:40 - Subjective Interval History: Pt continues to report significant SOB and anxiety. Swelling improving. Slept well with Ativan last night, however family states patient may have had some hallucinations. - Exam Vitals: Temp Pulse Resp BP Pulse Ox 97.9 F 85 20 160/68 93 04/29/19 10:14 04/29/19 10:14 04/29/19 10:14 04/29/19 10:14 04/29/19 10:14 Exam: gen- alert, awake,appears stated age HEENT: atraumatic, normocephalic cv- RRR, normal s1,s2, no murmurs appreciated, + 1 pitting edema at ankles (improving), + pitting edema bliat UE (improving). lungs- mild basilar crackles, no wheezing, rhonchi, mildly increased resp effort on o2 nc abd- BS normal throughout, soft, non tender, non distended neuro- no focal deficits, CN 2-12 grossly intact skin- warm dry normal color - Assessment and Plan (1) Acute on chronic kidney failure Current Visit: Yes Status: Acute Assessment and Plan: Fluid overload likely renal etiology. Renal U/S was normal. Nephrology following. - Continue albumin + lasixs with nephrology. - Strict I & O. - Monitor renal function with PRBC today. (2) Fluid overload Current Visit: Yes Status: Acute Assessment and Plan: Fluid overload likely secondary process to SHANTANU on CKD. - Continue to follow with nephro. - Strict I and O. (3) Acute on chronic diastolic (congestive) heart failure Current Visit: Yes Status: Acute Assessment and Plan: Echo dated 04/27/19 demonstrated EF 60%. No tamponade. - Monitor status with PRBC transfusion. - Continue to follow nephrology. (4) Acute and chronic respiratory failure with hypoxia Current Visit: Yes Status: Acute Assessment and Plan: Pt reports continued SOB at rest. P ox 87-93 on 4 L NC. - CXR normal. V/Q demonstrated low probability of PE. - Continue O2 PRN. - Start Xopenex Q6H. (5) Status post non-ST elevation myocardial infarction (NSTEMI) Current Visit: Yes Status: Acute (6) Chronic anemia Current Visit: Yes Status: Acute Assessment and Plan: Hgb 7.7 at this time. 1 unit PRBC ordered. Nephrology will continue to follow. - Heparin GTT discontinued. - H & H following PRBC transfusion. - AM labs ordered. (7) HTN (hypertension) Current Visit: No Status: Chronic Assessment and Plan: BP Stable. Will continue DAPT and CAD home meds. - Reduce norvasc per nephro to reduce edema. - Time Spent with Patient Total time spent is greater than 50% in coordination of care (as documented) at patient's floor/unit and/or counseling patient: Plan of Care Discussed with: patient Internal Medicine: Result - Labs CBC & Chem 7: 04/29/19 04:40 04/29/19 04:40 Labs: Short CBC 04/29/19 Range/Units 04:40 WBC 9.2 (4.3-11.1) K/mcL Hgb 7.7 L (11.5-15.4) g/dL Hct 23.6 L (35.3-44.9) % Plt Count 256 (140-400) K/mcL Neutrophils # 6.8 (1.6-8.9) K/mcL BMP 04/29/19 04:40 Sodium 132 L Potassium 4.1 Chloride 99 Carbon Dioxide 19 L BUN 56 H Creatinine 3.23 H Glucose 99 Calcium 8.7 - ABG Interpretation ABG results: PT/INR, D-dimer PT 13.1 Seconds (9.4-12.1) H 04/27/19 00:53 <Tana Juarez - Last Filed: 04/29/19 12:25> (1) Chest pain Qualifiers: Chest pain type: other chest pain Qualified Code(s): R07.89 - Other chest pain; R07.8 - Other chest pain (3) Acute on chronic kidney failure Qualifiers: Acute renal failure type: unspecified Chronic kidney disease stage: stage 3 (moderate) Qualified Code(s): N17.9 - Acute kidney failure, unspecified; N18.3 - Chronic kidney disease, stage 3 (moderate) (4) Diabetes Qualifiers: Diabetes mellitus type: type 2 Diabetes mellitus assisted insulin use: without assisted use Diabetes mellitus complication status: with other specified complication Qualified Code(s): E11.69 - Type 2 diabetes mellitus with other specified complication <Param Viera - Last Filed: 04/29/19 17:17> (1) Acute on chronic kidney failure Qualifiers: Acute renal failure type: unspecified Chronic kidney disease stage: stage 3 (moderate) Qualified Code(s): N17.9 - Acute kidney failure, unspecified; N18.3 - Chronic kidney disease, stage 3 (moderate) (7) HTN (hypertension) Qualifiers: Hypertension type: unspecified Qualified Code(s): I10 - Essential (primary) hypertension
[2019-04-29] MEDS: Levalbuterol Neb 0.63 MG/3 ML IH SCH ×3 (10:35→21:38)
[2019-04-29] MEDS ORDERED: Furosemide 40 MG/4 ML VIAL IVP ONE (13:49)
[2019-04-29] MEDS ORDERED: Albumin 25% 25gram/100mL 25 GM/100 ML IV.SOLN IVPB STA (14:03)
[2019-04-29] MEDS: hydrOXYzine pamoate 25 MG CAPSULE PO PRN (14:26)
--- NOTE | 2019-04-29 16:43 | Nephrology Progress Note ---
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 if continued renal worsening especially with concerns for respiratory failure UOP noted at 300cc in the past 24hrs despite diuretic given yesterday, will re- dose with albumin Continue fluid restriction Continue to avoid nephrotoxins if possible (2) CKD (chronic kidney disease) stage 4, GFR 15-29 ml/min Current Visit: No Status: Acute Baseline GFR in the 20s (3) Acute on chronic diastolic (congestive) heart failure Current Visit: Yes Status: Acute Continue strict I/Os Continue fluid restriction Will consider decreasing amlodipine to 5mg daily as can cause edema (4) Chest pain Current Visit: No Status: Suspected Per primary, +d-dimer noted. resolved Qualifiers: Chest pain type: chest pain due to myocardial ischemia Ischemic chest pain type: unstable angina pectoris Qualified Code(s): I20.0 - Unstable angina (5) Anemia Current Visit: No Status: Chronic Hgb noted at 7.7, agree with transfusion today per primary team to maintain hgb above 8 given cardiac issues. Qualifiers: Anemia type: unspecified type Qualified Code(s): D64.9 - Anemia, unspecified Subjective Interval history: Pt seen and examined still very dyspneic. Per daughter had anxiety episodes last night and this am Objective - Vital Signs Vital signs: Vital Signs Temp Pulse Resp BP Pulse Ox 04/29/19 15:58 97.2 F L 68 23 147/63 96 04/29/19 14:35 24 151/71 95 04/29/19 13:07 97.4 F L 75 20 151/71 96 04/29/19 11:24 97.2 F L 83 20 145/62 95 04/29/19 10:35 18 92 04/29/19 10:29 97.3 F L 86 22 168/70 90 04/29/19 10:14 97.9 F 85 20 160/68 93 04/29/19 08:03 85 04/29/19 07:09 97.6 F 85 22 151/65 93 04/29/19 04:11 98.4 F 82 20 132/58 87 04/28/19 23:13 98.1 F 61 20 134/59 94 04/28/19 21:30 79 04/28/19 19:14 97.9 F 80 16 143/57 90 Intake and Output 04/29/19 04/29/19 04/29/19 07:59 15:59 23:59 Intake Total 240 / 515 275 / 515 Output Total 500 / 650 150 / 650 Balance -260 / -135 125 / -135 Intake: Oral 240 / 240 Blood Product 275 / 275 Rbcs Leuko Poor As-1 Unit 275 / 275 [id number] Output: Urine 500 / 650 150 / 650 Other: Blood Glucose* 95 93 - General Appearance General appearance: Present: chronically ill, fatigue EENT: Present: ATNC, mucous membranes moist Neck: Present: no JVD, supple Additional Comments: decreased BS bases bilat Cardiology: Present: edema (LE/UE bilat), normal S1, normal S2 Gastrointestinal: Present: no tenderness, no guarding Integumentary: Present: warm and dry Neurologic: Present: no focal deficit Musculoskeletal: Present: no deformities Psychiatric: Present: mood/affect appropriate, cooperative - Lab 04/30/19 06:14 04/30/19 06:14 Most recent lab results 04/29/19 04/29/19 04:40 09:35 Calcium 8.7 Magnesium 2.1 Urine Creatinine 89 Urine Sodium 15.4 Consult Discharge Plan - Plan Referrals: Deysi Sanchez CNP [Primary Care Provider] - 05/08/19 9:00 am ()
[2019-04-29 17:39] LABS: Hematocrit 26.2 % (35.3-44.9); Hemoglobin 8.6 g/dL (11.5-15.4)
[2019-04-30] MEDS: hydrALAZINE 25 MG TABLET PO SCH ×3 (00:49→15:01)
[2019-04-30] MEDS: Levalbuterol Neb 0.63 MG/3 ML IH SCH ×4 (03:27→21:42)
[2019-04-30] MEDS: Nitroglycerin 25 MG/250 ML INFUS..BTL IVC SCH (04:46)
[2019-04-30] MEDS: *HR* Heparin 5,000 UNIT/ML VIAL SQ SCH ×3 (05:32→20:40)
[2019-04-30 06:32] LABS: Basophils # 0.1 K/mcL (0.0-0.2); Basophils % 0.7 %; Eosinophils # 0.2 K/mcL (0.0-0.6); Eosinophils % 1.9 %; Hematocrit 26.8 % (35.3-44.9); Hemoglobin 8.9 g/dL (11.5-15.4); Immature Granulocytes % 1.9 % (0-4); Lymphocytes # 1.9 K/mcL (0.6-4.6); Mean Corpuscular HGB Conc 33.2 g/dL (31.6-35.5); Mean Corpuscular Hemoglobin 27.7 pg (28.0-33.3); Mean Corpuscular Volume 83.5 fL (83.0-100.0); Mean Platelet Volume 10.3 fL (9.4-12.4); Monocytes # 1.1 K/mcL (0.0-1.3); Monocytes % 11.1 %; Neutrophils # 6.8 K/mcL (1.6-8.9); Nucleated Red Blood Cells 0.5 /100 WBC (0); Platelet Count 269 K/mcL (140-400); Red Blood Count 3.21 M/mcL (3.82-4.97); Red Cell Distribution Width 17.1 % (11.5-14.5); Segmented Neutrophils % 66.4 %; White Blood Count 10.3 K/mcL (4.3-11.1)
[2019-04-30 06:51] LABS: Calcium 8.8 mg/dL (8.6-10.3)
--- NOTE | 2019-04-30 08:59 | Internal Med Progress Note ---
<Tana Juarez - Last Filed: 04/30/19 11:45> Hospitalist Progress Note - Encounter Date of Encounter: 04/30/19 - Exam Vitals: Temp Pulse Resp BP Pulse Ox 98.5 F 83 26 148/67 98 04/30/19 11:28 04/30/19 11:28 04/30/19 11:28 04/30/19 11:28 04/30/19 11:28 - Assessment and Plan (1) Chest pain Current Visit: Yes Status: Resolved (2) Elevated troponin Current Visit: Yes Status: Acute (3) Acute on chronic kidney failure Current Visit: Yes Status: Acute (4) Diabetes Current Visit: Yes Status: Chronic (5) D-dimer, elevated Current Visit: Yes Status: Acute (6) Acute and chronic respiratory failure with hypoxia Current Visit: Yes Status: Acute (7) Chronic anemia Current Visit: Yes Status: Acute (8) Acute on chronic diastolic (congestive) heart failure Current Visit: Yes Status: Acute - Time Spent with Patient Total time spent is greater than 50% in coordination of care (as documented) at patient's floor/unit and/or counseling patient: Internal Medicine: Result - Labs CBC & Chem 7: 04/30/19 06:14 04/30/19 06:14 Labs: Short CBC 04/29/19 04/30/19 Range/Units 17:25 06:14 WBC 10.3 (4.3-11.1) K/mcL Hgb 8.6 L 8.9 L (11.5-15.4) g/dL Hct 26.2 L 26.8 L (35.3-44.9) % Plt Count 269 (140-400) K/mcL Neutrophils # 6.8 (1.6-8.9) K/mcL BMP 04/30/19 06:14 Sodium 130 L Potassium 4.0 Chloride 97 L Carbon Dioxide 17 L BUN 61 H Creatinine 3.34 H Glucose 86 Calcium 8.8 - ABG Interpretation ABG results: PT/INR, D-dimer PT 13.1 Seconds (9.4-12.1) H 04/27/19 00:53 - Impressions Impressions Retroperitoneum Ultrasound 04/29/19 13:00 IMPRESSION: Normal sonographic appearance of the kidneys. D/ / 04/29/2019 13:53:36 Doug Barclay MD / [email or web address] Interpreting Provider: Doug Barclay MD Consult Discharge Plan - Plan Referrals: Deysi Sanchez ICE CREAM MIXER [Primary Care Provider] - 05/08/19 9:00 am () - Attending Attestation I examined this patient and my medical decision-making was reviewed with the Resident Physician Dr Viera. I agree with the documented findings, disposition and treatment plan as described except to the extent set forth below. Ms Cortes is admitted with hypoxic resp failure and fluid overload awake, no family present, no sob on bipap, comofrtable, cont swelling arms/hands and legs, no cp gen- alert, awake,appears stated age cv- reg rate and rhythm, 1+ pitting to bl knees, trace pitting bl hands lungs- ctabl on bipap, normal resp effort neuro- AAOx3 Acute Hypoxic Resp Failure 2/2 Fluid Overload, worsening- pt comofrtable and tolerating bipap mask, continuous bipap at this time, will repeat cxr in am Fluid Overload most likely 2/2 SHANTANU on CKD with also Possible Acute on Chronic HFpEF SHANTANU on CKD, worsening -nephro following, s/p albumin + lasix + bipap yesterday for fluid mobilization, no significant improvement today and now with desats off bipap mask -will await further nepro recs today, concern she may be heading towards HD fluid removal CAD s/p NSTEMI and Circ stent 04/17/2019 -cont DAPT and CAD home med regimen Chronic anemia at baseline Keep hgb >8 given recent cardiac hx as d/w cards -responded to unit prbc apporpriately, monito hgb daily further dx and plan as noted by resident <Param Viera - Last Filed: 04/30/19 16:58> Hospitalist Progress Note - Encounter Date of Encounter: 04/30/19 Time of Encounter: 08:50 - Subjective Interval History: Patient was awake without family present. On bipap at the time of evaluation. Doing well on bipap, appears comfortable, although de-saturating while off of bipap. Upper and lower extremity edema slightly worse from last exam. - Exam Vitals: Temp Pulse Resp BP Pulse Ox 98.1 F 81 18 158/66 97 04/30/19 07:05 04/30/19 07:05 04/30/19 07:05 04/30/19 07:05 04/30/19 07:05 Exam: gen- alert, awake,appears stated age HEENT: atraumatic, normocephalic cv- RRR, normal s1,s2, no murmurs appreciated, + 1 pitting edema at ankles (slightly worse from last exam), + pitting edema bliat UE (worse). lungs- auscultated while on bipap: moderate basilar crackles, no wheezing, rhonchi, appears comfortable on bipap. abd- BS normal throughout, soft, non tender, non distended neuro- no focal deficits, CN 2-12 grossly intact skin- warm dry, mild discoloration of BL upper ext likely stasis from edema. - Assessment and Plan (1) Acute on chronic kidney failure Current Visit: Yes Status: Acute Assessment and Plan: Renal u/s was normal. Nephrology following patient. Possible that patient may need HD for fluid overload. Awaiting further suggestion at this time. - Continue diuresis per nephro. - Strict I & O. (2) Fluid overload Current Visit: Yes Status: Acute Assessment and Plan: Fluid overload secondary to SHANTANU on CKD. Pt tolerating bipap. Destaturating off bipap. Will await further nephro recs. - Continuous bipap. - Morning EKG and CXR. (3) Acute on chronic diastolic (congestive) heart failure Current Visit: Yes Status: Acute (4) Acute and chronic respiratory failure with hypoxia Current Visit: Yes Status: Acute Assessment and Plan: Acute hypoxia and respiratory failure related to fluid overload secondary to SHANTANU on CKD. Tolerating bipap. - Continuous Bipap. Follow with nephro. - Continue O2, xopenex PRN. - CXR in AM. (5) Status post non-ST elevation myocardial infarction (NSTEMI) Current Visit: Yes Status: Acute Assessment and Plan: CP has resolved. Continue home medications. - Continue ASA, plavix. - Norvasc reduced to 5 mg yesterday. (6) Chronic anemia Current Visit: Yes Status: Chronic Assessment and Plan: Anemia responded to 1 unit of PRBC appropriately. Hbg 7.7 to 8.9 following transfusion. - Goal hbg greater than 8. - Continue to monitor renal function. - CBC in AM. (7) HTN (hypertension) Current Visit: No Status: Chronic Assessment and Plan: BP has been slightly elevated. Likely related to reduction of norvasc to 5 mg. 158-148/66-67. - Continue to monitor BP. - Continue diuresis w/albumin + lasixs per nephro. Awaiting further nephro suggestions. - Time Spent with Patient Total time spent is greater than 50% in coordination of care (as documented) at patient's floor/unit and/or counseling patient: Plan of Care Discussed with: patient Internal Medicine: Result - Labs CBC & Chem 7: 04/30/19 06:14 04/30/19 06:14 Labs: Short CBC 04/29/19 04/30/19 Range/Units 17:25 06:14 WBC 10.3 (4.3-11.1) K/mcL Hgb 8.6 L 8.9 L (11.5-15.4) g/dL Hct 26.2 L 26.8 L (35.3-44.9) % Plt Count 269 (140-400) K/mcL Neutrophils # 6.8 (1.6-8.9) K/mcL BMP 04/30/19 06:14 Sodium 130 L Potassium 4.0 Chloride 97 L Carbon Dioxide 17 L BUN 61 H Creatinine 3.34 H Glucose 86 Calcium 8.8 - ABG Interpretation ABG results: PT/INR, D-dimer PT 13.1 Seconds (9.4-12.1) H 04/27/19 00:53 - Impressions Impressions Retroperitoneum Ultrasound 04/29/19 13:00 IMPRESSION: Normal sonographic appearance of the kidneys. D/ / 04/29/2019 13:53:36 Doug Barclay MD / [email or web address] Interpreting Provider: Doug Barclay MD <Tana Juarez M - Last Filed: 04/30/19 11:45> (1) Chest pain Qualifiers: Chest pain type: other chest pain Qualified Code(s): R07.89 - Other chest verito n; R07.8 - Other chest pain (3) Acute on chronic kidney failure Qualifiers: Acute renal failure type: unspecified Chronic kidney disease stage: stage 3 (moderate) Qualified Code(s): N17.9 - Acute kidney failure, unspecified; N18.3 - Chronic kidney disease, stage 3 (moderate) (4) Diabetes Qualifiers: Diabetes mellitus type: type 2 Diabetes mellitus nursing home insulin use: without salvage determiner use Diabetes mellitus complication status: with other specified complication Qualified Code(s): E11.69 - Type 2 diabetes mellitus with other specified complication <Param Viera M - Last Filed: 04/30/19 16:58> (1) Acute on chronic kidney failure Qualifiers: Acute renal failure type: unspecified Chronic kidney disease stage: stage 3 (moderate) Qualified Code(s): N17.9 - Acute kidney failure, unspecified; N18.3 - Chronic kidney disease, stage 3 (moderate) (7) HTN (hypertension) Qualifiers: Hypertension type: unspecified Qualified Code(s): I10 - Essential (primary) hypertension
[2019-04-30] MEDS: Diltiazem CD (24hr) 180 MG CAPSULE PO SCH (09:11)
[2019-04-30] MEDS: amLODIPine 5 MG TABLET PO SCH (09:11)
[2019-04-30] MEDS: Sucralfate 1 GM TABLET PO SCH ×4 (09:12→20:39)
[2019-04-30] MEDS: Aspirin Enteric Coated 81 MG Tablet PO SCH (09:12)
[2019-04-30] MEDS: Isosorbide MONOnitrate (24 HR) 60 MG TAB.ER.24H PO SCH (09:12)
[2019-04-30] MEDS: Insulin LISPRO 300 UNITS/3 ML VIAL SQ SCH ×4 (09:21→20:49)
[2019-04-30] MEDS ORDERED: *HR* Heparin 10,000 UNIT/10 ML VIAL IV PRN ×2 (15:16)
[2019-04-30] MEDS ORDERED: 0.9 % Sodium Chloride 250 ML IVC PRN (15:16)
[2019-04-30] MEDS ORDERED: *HR* Heparin 5,000 UNIT/ML VIAL ONE (15:17)
[2019-04-30] MEDS ORDERED: 0.9 % Sodium Chloride 1,000 ML PRIME SCH (15:30)
[2019-04-30 17:15] LABS: Hepatitis B Surface Antigen Nonreactive (Nonreactive)
[2019-04-30 17:43] LABS: Hepatitis B Surface Antibody 3.67 mIU/mL
[2019-04-30] MEDS ORDERED: Ondansetron 4 MG/2 ML VIAL IVP PRN (18:28)
--- NOTE | 2019-04-30 23:32 | Nephrology Progress Note ---
Date of Encounter: 04/30/19 Time of Encounter: 13:00 - Assessment and Plan (1) SHANTANU (acute kidney injury) Current Visit: Yes Status: Acute SCr continues to worsen at 3.34, GFR 13, will proceed with HOUSE PAINTER at this time as pt is not responding to diuretics and concerns for respiratory failure worrisome Will arrange temp HD catheter with IR and then 2hrs HD today with UF goal of 1- 2kg as tolerated Second session also planned tomorrow Continue fluid restriction Continue to avoid nephrotoxins if possible (2) CKD (chronic kidney disease) stage 4, GFR 15-29 ml/min Current Visit: No Status: Acute Baseline GFR in the 20s (3) Acute on chronic diastolic (congestive) heart failure Current Visit: Yes Status: Acute Continue strict I/Os Continue fluid restriction UOp notes at 650cc in the past 24hrs after a dose of albumin and lasix yesterday Will consider decreasing amlodipine to 5mg daily as can cause edema (4) Chest pain Current Visit: No Status: Suspected Per primary, +d-dimer noted. resolved Qualifiers: Chest pain type: chest pain due to myocardial ischemia Ischemic chest pain type: unstable angina pectoris Qualified Code(s): I20.0 - Unstable angina (5) Anemia Current Visit: No Status: Chronic s/p transfusion yesterday with hgb now at 8.9. will monitor Qualifiers: Anemia type: unspecified type Qualified Code(s): D64.9 - Anemia, unspecified Subjective Interval history: Pt seen and examined still very dyspneic. Had another episode of anxiety this am when biPAP discontinued. UOP not impressive. Objective - Vital Signs Vital signs: Vital Signs Temp Pulse Resp BP Pulse Ox 04/30/19 21:44 22 95 04/30/19 20:50 98.2 F 82 18 142/62 04/30/19 20:35 97.7 F 16 151/79 04/30/19 20:10 138/58 04/30/19 19:55 142/53 04/30/19 19:40 136/59 04/30/19 19:25 142/59 04/30/19 19:10 150/61 04/30/19 18:55 157/58 04/30/19 18:40 178/89 04/30/19 18:25 127/49 04/30/19 18:10 98.6 F 18 144/57 08/27/19 16:28 98.8 F 61 22 152/59 97 04/30/19 15:49 25 142/59 96 04/30/19 15:00 67 04/30/19 11:28 98.5 F 83 26 148/67 98 04/30/19 11:00 84 04/30/19 10:05 32 158/66 97 04/30/19 09:46 75 04/30/19 07:05 98.1 F 81 18 158/66 97 04/30/19 06:18 77 15 97 04/30/19 03:40 97.6 F 76 17 150/70 97 04/30/19 03:29 14 96 04/30/19 00:56 70 154/61 04/29/19 23:33 97.8 F 74 13 135/64 96 Intake and Output 04/30/19 04/30/19 04/30/19 07:59 15:59 23:59 Intake Total 360 / 960 600 / 960 Output Total 225 / 1825 1600 / 1825 Balance 135 / -865 -1000 / -865 Intake: Oral 360 / 360 0 / 360 Intake, Rinseback and Flushes 600 / 600 Output: Urine 0 / 0 Total Dialysis (HD) Output 1600 / 1600 Catheter 225 / 225 Other: Meal Lunch Percent of Meal Consumed 25% Weight 86.1 kg Blood Glucose* 86 82 113 Hemodialysis Net Fluid Removed 1000 (mL) Patient Weight 04/30/19 23:59 Weight 86.1 kg - General Appearance General appearance: Present: chronically ill, fatigue EENT: Present: ATNC, mucous membranes moist Neck: Present: no JVD, supple Additional Comments: decreased BS bases bilat Cardiology: Present: edema (LE/US bilat), normal S1, normal S2 Gastrointestinal: Present: no tenderness, no guarding Integumentary: Present: warm and dry Neurologic: Present: no focal deficit Musculoskeletal: Present: no deformities Psychiatric: Present: mood/affect appropriate, cooperative - Lab 04/30/19 06:14 04/30/19 06:14 Consult Discharge Plan - Plan Referrals: Deysi Sanchez CNP [Primary Care Provider] - 05/08/19 9:00 am ()
[2019-05-01] MEDS: Nitroglycerin 25 MG/250 ML INFUS..BTL IVC SCH ×2 (00:35→23:02)
[2019-05-01] MEDS: hydrALAZINE 25 MG TABLET PO SCH ×3 (00:36→17:33)
[2019-05-01] MEDS: hydrOXYzine pamoate 25 MG CAPSULE PO PRN (00:43)
[2019-05-01 02:14] LABS: Basophils # 0.1 K/mcL (0.0-0.2); Basophils % 0.3 %; Eosinophils # 0.2 K/mcL (0.0-0.6); Eosinophils % 1.2 %; Hematocrit 25.6 % (35.3-44.9); Hemoglobin 8.3 g/dL (11.5-15.4); Lymphocytes # 1.1 K/mcL (0.6-4.6); Lymphocytes % 6.8 %; Mean Corpuscular HGB Conc 32.4 g/dL (31.6-35.5); Mean Corpuscular Hemoglobin 27.2 pg (28.0-33.3); Mean Corpuscular Volume 83.9 fL (83.0-100.0); Mean Platelet Volume 10.9 fL (9.4-12.4); Monocytes # 1.1 K/mcL (0.0-1.3); Monocytes % 6.9 %; Neutrophils # 13.7 K/mcL (1.6-8.9); Nucleated Red Blood Cells 0.2 /100 WBC (0); Platelet Count 226 K/mcL (140-400); Red Blood Count 3.05 M/mcL (3.82-4.97); Red Cell Distribution Width 17.2 % (11.5-14.5); Segmented Neutrophils % 83.8 %
[2019-05-01 02:15] LABS: White Blood Count 16.3 K/mcL (4.3-11.1)
[2019-05-01 02:32] LABS: Calcium 8.4 mg/dL (8.6-10.3); Potassium 3.7 mEq/L (3.5-5.1)
[2019-05-01] MEDS: Levalbuterol Neb 0.63 MG/3 ML IH SCH ×4 (03:29→22:22)
[2019-05-01] MEDS: *HR* Heparin 5,000 UNIT/ML VIAL SQ SCH ×3 (05:51→20:55)
[2019-05-01] MEDS: Insulin LISPRO 300 UNITS/3 ML VIAL SQ SCH ×4 (09:07→20:55)
[2019-05-01] MEDS: Sucralfate 1 GM TABLET PO SCH ×4 (09:07→20:54)
[2019-05-01] MEDS: Aspirin Enteric Coated 81 MG Tablet PO SCH (09:08)
[2019-05-01] MEDS ORDERED: 0.9 % Sodium Chloride 250 ML IVC PRN (09:36)
[2019-05-01] MEDS ORDERED: *HR* Heparin 10,000 UNIT/10 ML VIAL IV PRN (09:36)
--- NOTE | 2019-05-01 10:20 | Internal Med Progress Note ---
<Wing Mar - Last Filed: 05/01/19 14:03> Hospitalist Progress Note - Encounter Date of Encounter: 05/01/19 - Exam Vitals: Temp Pulse Resp BP Pulse Ox 99.0 F 86 27 155/61 96 05/01/19 09:10 05/01/19 09:10 05/01/19 09:57 05/01/19 12:55 05/01/19 09:57 - Assessment and Plan (1) Elevated troponin Current Visit: Yes Status: Acute (2) Acute on chronic kidney failure Current Visit: Yes Status: Acute (3) Diabetes Current Visit: Yes Status: Chronic (4) Chest pain Current Visit: Yes Status: Resolved (5) D-dimer, elevated Current Visit: Yes Status: Acute (6) Acute and chronic respiratory failure with hypoxia Current Visit: Yes Status: Acute (7) Chronic anemia Current Visit: Yes Status: Chronic (8) Acute on chronic diastolic (congestive) heart failure Current Visit: Yes Status: Acute (9) Pulmonary edema Current Visit: Yes Status: Acute - Time Spent with Patient Total time spent is greater than 50% in coordination of care (as documented) at patient's floor/unit and/or counseling patient: Internal Medicine: Result - Labs CBC & Chem 7: 05/01/19 01:41 05/01/19 01:41 Labs: Short CBC 05/01/19 Range/Units 01:41 WBC 16.3 H D (4.3-11.1) K/mcL Hgb 8.3 L (11.5-15.4) g/dL Hct 25.6 L (35.3-44.9) % Plt Count 226 (140-400) K/mcL Neutrophils # 13.7 H (1.6-8.9) K/mcL BMP 05/01/19 01:41 Sodium 134 L Potassium 3.7 Chloride 99 Carbon Dioxide 23 BUN 44 H Creatinine 2.66 H Glucose 87 Calcium 8.4 L - ABG Interpretation ABG results: PT/INR, D-dimer PT 13.1 Seconds (9.4-12.1) H 04/27/19 00:53 - Impressions Impressions Guidance Ultrasound 04/30/19 00:00 IMPRESSION: Successful ultrasound guided non-tunneled catheter placement. D/ / Naveen Emery MD / Naveen Emery MD Interpreting Provider: Naveen Emery MD Insertion Non-Tunneled Catheter 04/30/19 00:00 IMPRESSION: Successful ultrasound guided non-tunneled catheter placement. D/ / Naveen Emery MD / Naveen Emery MD Interpreting Provider: Naveen Emery MD Chest X-Ray 04/30/19 15:38 IMPRESSION: Placement of right IJ central venous catheter with tip at cavoatrial junction. No pneumothorax. Stable bilateral pleural effusions and likely bibasilar atelectasis. D/ / 04/30/2019 16:14:39 Ector Cornejo MD / earnold Interpreting Provider: Ector Cornejo MD Chest X-Ray 05/01/19 07:00 IMPRESSION: 1. Right jugular central venous catheter is unchanged in position. 2. Slight increase in prominence of the pulmonary vasculature/interstitial markings. 3. Small bilateral pleural effusions, left greater than right. D/ / Oswaldo Gonzalez MD / Oswaldo Gonzalez MD Interpreting Provider: Oswaldo Gonzalez MD Consult Discharge Plan - Plan Referrals: Deysi Sanchez CNP [Primary Care Provider] - 05/08/19 9:00 am () - Attending Attestation I examined this patient and my medical decision-making was reviewed with the Resident Physician on 05/01/19. I agree with the documented findings, dis position and treatment plan as described except to the extent set forth below. Ms Cortes is currently admitted for resp failure related to volume overload/pulmonary edema. She began dialysis yesterday. She remains moderate to high risk due to potential for worsening clinical status. Ms Cortes just ate breakfast. No fever or chills. Had dialysis yesterday and feels "less bloated." To have a session again today. No CP. Breathing overall a little better. Exam: Alert. Mod resp distress - off bipap. EOMI. NC. Mucus membranes dry. Neck supple. Heart distant- faint diastolic murmur heard? Decreased breath sounds with faint rales. Abd soft. Edema present thro ughout. Moves all extremities. No rash. Affect appropriate. Plan: Dialysis again today. Monitor in 2N today. Continue bipap HS and PRN. Increase activity as tolerated. Further diagnoses and plan as above. <Farzad Lomas S - Last Filed: 05/01/19 15:45> Hospitalist Progress Note - Encounter Date of Encounter: 05/01/19 Time of Encounter: 10:16 - Subjective Interval History: Ms. Cortes is an 83-year-old female currently on hospital day 4 she was admitted following an episode of chest pain after having been found to have an elevated d-dimer. She was admitted with diagnosis of NSTEMI, as her initial troponin was elevated at 0.09. She underwent a left heart catheterization on the , and returned home on the from cardiac rehabilitation at her [place] facility, at which time her chest pain worsened and she returned to the hospital. She has been found to be in hypoxemic respiratory failure with fluid overload. This is been complicated by her chronic kidney disease stage IV, with concurrent heart failure. Due to difficulty addressing her fluid overload with her CHF and CAD, she received 2 hours of hemodialysis yesterday, with significant resolution of many of her symptoms, including; lessening of her feelings of abdominal bloating, lessening of her shortness of breath. She remains on BiPAP at this time, however, her nurse states she was able to eat breakfast this morning on oxygen by nasal cannula. She continues to have significant upper extremity edema, and has lower extremity edema. She was taken to another session of dialysis immediately after my assessment. - Exam Vitals: Temp Pulse Resp BP Pulse Ox 99.0 F 86 27 146/56 96 05/01/19 07:03 05/01/19 07:03 05/01/19 09:57 05/01/19 09:57 05/01/19 09:57 Exam: gen- alert, awake,appears stated age HEENT: atraumatic, normocephalic cv- RRR, normal s1,s2, no murmurs appreciated, + 1 pitting edema at ankles, + pitting edema bliat UE. lungs- auscultated while on bipap: moderate basilar crackles, no wheezing, rhonchi, appears comfortable on bipap. tachypnea and hypopnea noted on bipap abd- BS normal throughout, soft, slight distension, mild tenderness to palpation with no peritoneal signs or rigidity neuro- no focal deficits, CN 2-12 grossly intact skin- warm dry, mild discoloration of BL upper ext likely stasis from edema. - Assessment and Plan (1) HTN (hypertension) Current Visit: Yes Status: Chronic Assessment and Plan: 163/65-117/97 since midnight Continue monitoring Patient receiving hemodialysis to assist with volume control (2) Acute on chronic kidney failure Current Visit: Yes Status: Acute Assessment and Plan: Nephrology following, patient is receiving dialysis. Continue dialysis per nephrology's recommendations. Maintain strict I's and O's (3) Acute and chronic respiratory failure with hypoxia Current Visit: Yes Status: Acute Assessment and Plan: Patient's acute hypoxia and respiratory failure R secondary to fluid overload, which is being addressed by hemodialysis. Chest x-ray performed this morning shows slightly increased pulmonary vascular and interstitial markings when compared with prior performed yesterday. Will obtain another x-ray in the morning (4) Chronic anemia Current Visit: Yes Status: Chronic Assessment and Plan: Anemia responded to 1 unit of PRBC appropriately. Hbg 7.7 to 8.9 following transfusion. - Goal hbg greater than 8. - Continue to monitor renal function. - CBC in AM. (5) Acute on chronic diastolic (congestive) heart failure Current Visit: Yes Status: Acute Assessment and Plan: Continue all current cardiac medications Monitor for signs symptoms of worsening heart failure Strict I's and O's Restrictive fluid administration (6) Status post non-ST elevation myocardial infarction (NSTEMI) Current Visit: Yes Status: Acute Assessment and Plan: Chest pain resolved at this time. We will continue aspirin and Plavix (7) Fluid overload Current Visit: Yes Status: Acute Assessment and Plan: Treatment by hemodialysis for fluid overload, patient is responding well to treatments. Continue hemodialysis in conjunction with nephrology - Time Spent with Patient Total time spent is greater than 50% in coordination of care (as documented) at patient's floor/unit and/or counseling patient: Internal Medicine: Result - Labs CBC & Chem 7: 05/01/19 01:41 05/01/19 01:41 Labs: Short CBC 05/01/19 Range/Units 01:41 WBC 16.3 H D (4.3-11.1) K/mcL Hgb 8.3 L (11.5-15.4) g/dL Hct 25.6 L (35.3-44.9) % Plt Count 226 (140-400) K/mcL Neutrophils # 13.7 H (1.6-8.9) K/mcL BMP 05/01/19 01:41 Sodium 134 L Potassium 3.7 Chloride 99 Carbon Dioxide 23 BUN 44 H Creatinine 2.66 H Glucose 87 Calcium 8.4 L - ABG Interpretation ABG results: PT/INR, D-dimer PT 13.1 Seconds (9.4-12.1) H 04/27/19 00:53 - Impressions Impressions Guidance Ultrasound 04/30/19 00:00 IMPRESSION: Successful ultrasound guided non-tunneled catheter placement. D/ / Naveen Emery MD / Naveen Emery MD Interpreting Provider: Naveen Emery MD Insertion Non-Tunneled Catheter 04/30/19 00:00 IMPRESSION: Successful ultrasound guided non-tunneled catheter placement. D/ / Naveen Emery MD / Naveen Emery MD Interpreting Provider: Naveen Emery MD Chest X-Ray 04/30/19 15:38 IMPRESSION: Placement of right IJ central venous catheter with tip at cavoatrial junction. No pneumothorax. Stable bilateral pleural effusions and likely bibasilar atelectasis. D/ / 04/30/2019 16:14:39 Ector Cornejo MD / earnold Interpreting Provider: Ector Cornejo MD Chest X-Ray 05/01/19 07:00 IMPRESSION: 1. Right jugular central venous catheter is unchanged in position. 2. Slight increase in prominence of the pulmonary vasculature/interstitial markings. 3. Small bilateral pleural effusions, left greater than right. D/ / Oswaldo Gonzalez MD / Oswaldo Gonzalez MD Interpreting Provider: Oswaldo Gonzalez MD <Wing Mar - Last Filed: 05/01/19 14:03> (2) Acute on chronic kidney failure Qualifiers: Acute renal failure type: unspecified Chronic kidney disease stage: stage 3 (moderate) Qualified Code(s): N17.9 - Acute kidney failure, unspecified; N18.3 - Chronic kidney disease, stage 3 (moderate) (3) Diabetes Qualifiers: Diabetes mellitus type: type 2 Diabetes mellitus alf insulin use: with out alf use Diabetes mellitus complication status: with kidney compl ications Diabetes mellitus complication detail: with chronic kidney disease Chronic kidney disease stage: stage 3 (moderate) Qualified Code(s): E11.22 - Type 2 diabetes mellitus with diabetic chronic kidney disease; N18.3 - Chronic kidney disease, stage 3 (moderate) (4) Chest pain Qualifiers: Chest pain type: other chest pain Qualified Code(s): R07.89 - Other chest pain; R07.8 - Other chest pain (9) Pulmonary edema Qualifiers: Chronicity: acute Qualified Code(s): J81.0 - Acute pulmonary edema <Farzad Lomas - Last Filed: 05/01/19 15:45> (1) HTN (hypertension) Qualifiers: Hypertension type: unspecified Qualified Code(s): I10 - Essential (primary) hypertension (2) Acute on chronic kidney failure Qualifiers: Acute renal failure type: unspecified Chronic kidney disease stage: stage 3 (moderate) Qualified Code(s): N17.9 - Acute kidney failure, unspecified; N18.3 - Chronic kidney disease, stage 3 (moderate) (7) Fluid overload Qualifiers: Hypervolemia type: other Qualified Code(s): E87.79 - Other fluid overload
[2019-05-01] MEDS: Diltiazem CD (24hr) 180 MG CAPSULE PO SCH (14:08)
[2019-05-01] MEDS: amLODIPine 5 MG TABLET PO SCH (14:08)
[2019-05-01] MEDS: Isosorbide MONOnitrate (24 HR) 60 MG TAB.ER.24H PO SCH (14:08)
--- NOTE | 2019-05-01 16:27 | Nephrology Progress Note ---
Date of Encounter: 05/01/19 Time of Encounter: 12:00 - Assessment and Plan (1) SHANTANU (acute kidney injury) Current Visit: Yes Status: Acute SCr better after first HD session. Second HD session underway with goal UF 2-3kg as tolerated. Will plan a third HD session for tomorrow UOP remains poor, will monitor for renal recovery Continue fluid restriction Continue to avoid nephrotoxins if possible (2) CKD (chronic kidney disease) stage 4, GFR 15-29 ml/min Current Visit: Yes Status: Acute Baseline GFR in the 20s (3) Acute on chronic diastolic (congestive) heart failure Current Visit: Yes Status: Acute Improving with UF as above Continue strict I/Os Continue fluid restriction Will consider decreasing amlodipine to 5mg daily as can cause edema (4) Chest pain Current Visit: No Status: Suspected Per primary, +d-dimer noted. resolved Qualifiers: Chest pain type: chest pain due to myocardial ischemia Ischemic chest pain type: unstable angina pectoris Qualified Code(s): I20.0 - Unstable angina (5) Anemia Current Visit: No Status: Chronic Hgb noted at 8.3 s/p transfusion pRBCs, will monitor Qualifiers: Anemia type: unspecified type Qualified Code(s): D64.9 - Anemia, unspecified Subjective Interval history: Pt seen and examined on HD with biPAP still in place but feels better with her breathing today after her first HD session Objective - Vital Signs Vital signs: Vital Signs Temp Pulse Resp BP Pulse Ox 05/01/19 16:08 18 92 05/01/19 16:01 98.5 F 82 18 136/54 92 05/01/19 14:09 98.1 F 18 159/66 05/01/19 13:25 146/61 05/01/19 13:10 163/65 05/01/19 12:55 155/61 05/01/19 12:40 143/58 05/01/19 12:25 149/60 05/01/19 12:10 156/51 05/01/19 11:55 150/60 05/01/19 11:40 147/59 05/01/19 11:25 157/61 05/01/19 11:10 160/61 05/01/19 10:55 161/68 05/01/19 10:40 141/70 05/01/19 09:57 27 146/56 96 05/01/19 09:10 99.0 F 86 27 146/56 96 05/01/19 07:03 99.0 F 86 27 146/56 96 05/01/19 03:30 14 163/64 96 05/01/19 03:18 99.6 F 83 17 163/64 05/01/19 00:43 98.5 F 85 20 117/97 04/30/19 21:44 22 95 04/30/19 20:50 98.2 F 82 18 142/62 04/30/19 20:35 97.7 F 16 151/79 04/30/19 20:10 138/58 04/30/19 19:55 142/53 04/30/19 19:40 136/59 04/30/19 19:25 142/59 04/30/19 19:10 150/61 04/30/19 18:55 157/58 04/30/19 18:40 178/89 04/30/19 18:25 127/49 04/30/19 18:10 98.6 F 18 144/57 04/30/19 16:28 98.8 F 61 22 152/59 97 Intake and Output 05/01/19 05/01/19 05/01/19 07:59 15:59 23:59 Intake Total 240 / 240 Output Total 125 / 3525 3100 / 3525 300 / 3525 Balance -125 / -3285 -2860 / -3285 -300 / -3285 Intake: Oral 240 / 240 Output: Urine 0 / 0 Total Dialysis (HD) Output 3100 / 3100 Catheter 125 / 425 0 / 425 300 / 425 Other: Meal Breakfast Percent of Meal Consumed 5% Weight 84.9 kg Blood Glucose* 88 118 97 Hemodialysis Net Fluid Removed 2500 (mL) Patient Weight 05/01/19 23:59 Weight 84.9 kg - General Appearance General appearance: Present: chronically ill, fatigue EENT: Present: ATNC, mucous membranes moist Neck: Present: no JVD, supple Additional Comments: decreased BS bases bilat Cardiology: Present: edema (LE/UE bilat), normal S1, normal S2 Dialysis Vascular Access: Venous Catheter (temp IJ line) Gastrointestinal: Present: no tenderness, no guarding Integumentary: Present: warm and dry Neurologic: Present: no focal deficit Musculoskeletal: Present: no deformities Psychiatric: Present: mood/affect appropriate, cooperative - Lab 05/01/19 01:41 05/01/19 01:41 Consult Discharge Plan - Plan Referrals: Deysi Sanchez CNP [Primary Care Provider] - 05/08/19 9:00 am ()
[2019-05-02] MEDS: hydrALAZINE 25 MG TABLET PO SCH ×3 (00:10→14:07)
[2019-05-02] MEDS: hydrOXYzine pamoate 25 MG CAPSULE PO PRN (00:13)
[2019-05-02] MEDS: Levalbuterol Neb 0.63 MG/3 ML IH SCH ×4 (04:12→21:54)
[2019-05-02] MEDS: *HR* Heparin 5,000 UNIT/ML VIAL SQ SCH ×3 (05:24→22:00)
[2019-05-02 05:48] LABS: VBG HCO3 30 mEq/L (21-27); VBG PCO2 49 mmHg (41-51); VBG PH 7.39 pH Units (7.32-7.42); VBG PO2 149 mmHg (25-50)
[2019-05-02 05:58] LABS: Basophils # 0.1 K/mcL (0.0-0.2); Basophils % 0.7 %; Eosinophils # 0.6 K/mcL (0.0-0.6); Eosinophils % 5.9 %; Hematocrit 26.2 % (35.3-44.9); Hemoglobin 8.5 g/dL (11.5-15.4); Immature Granulocytes % 1.2 % (0-4); Lymphocytes # 1.7 K/mcL (0.6-4.6); Lymphocytes % 17.7 %; Mean Corpuscular HGB Conc 32.4 g/dL (31.6-35.5); Mean Corpuscular Hemoglobin 27.7 pg (28.0-33.3); Mean Corpuscular Volume 85.3 fL (83.0-100.0); Mean Platelet Volume 10.6 fL (9.4-12.4); Monocytes # 1.1 K/mcL (0.0-1.3); Monocytes % 11.6 %; Nucleated Red Blood Cells 0.3 /100 WBC (0); Platelet Count 197 K/mcL (140-400); Red Blood Count 3.07 M/mcL (3.82-4.97); Red Cell Distribution Width 17.6 % (11.5-14.5); Segmented Neutrophils % 62.9 %; White Blood Count 9.6 K/mcL (4.3-11.1)
[2019-05-02 06:23] LABS: Calcium 8.3 mg/dL (8.6-10.3); Potassium 3.5 mEq/L (3.5-5.1)
[2019-05-02] MEDS: Insulin LISPRO 300 UNITS/3 ML VIAL SQ SCH ×4 (07:51→20:20)
[2019-05-02] MEDS ORDERED: 0.9 % Sodium Chloride 1,000 ML ONE (08:03)
--- NOTE | 2019-05-02 08:11 | Internal Med Progress Note ---
<Farzad Lomas S - Last Filed: 05/02/19 13:24> Hospitalist Progress Note - Encounter Date of Encounter: 05/02/19 Time of Encounter: 08:04 - Subjective Interval History: Mrs. Cortes is an 83-year-old female currently on hospital day 5, she was admitted with diagnosis of NSTEMI with initial troponins of 0.09 and 0.06. She came to the ED after being discharged from cardiac rehabilitation at our [facility] facility, where she was undergoing rehabilitation for left heart catheterization on the of this month. She was found to be in hypoxemic respiratory failure with fluid overload which was complicated by chronic kidney disease stage IV with concurrent heart failure. She continues to respond well to treatments of hemodialysis, and his been able to be off BiPAP since exam this morning. She is requesting we put her on BiPAP to go to dialysis. I spoke with her at length about the benefits that we expect dialysis to have on her breathing, as well as the fact that BiPAP is not indicated for her at this time. I emphasized that should her condition worsen, BiPAP was still an option we would be happy to use. Of note, her white blood cell count reduced from 16.3 yesterday to a level of 9.6 today. Her hemoglobin has been steady at around 8.5, and a chem panel showed improvement in her BUN/creatinine 228 and 2.06, from 44 and 2.66. New complaint was stated today of hearing loss in her left ear that she reports started after she had started getting dialysis treatments, examination of the ear showed no abnormalities, no cerumen impaction, no hemotympanum or otitis media, and should the hearing loss worsen will consider more invasive testing to find a source. - Exam Vitals: Temp Pulse Resp BP Pulse Ox 97.9 F 85 18 153/63 93 05/02/19 07:13 05/02/19 07:13 05/02/19 07:13 05/02/19 07:13 05/02/19 07:13 Exam: Gen- alert, awake,appears stated age, pt on nasal cannula HEENT: atraumatic, normocephalic cv- RRR, normal s1,s2, no murmurs appreciated, + 1 pitting edema at ankles, upper extremity edema resolved. lungs- mildly elevated work of breathing, mildly coarse breath sounds throuhougt, mild bibasilar crackles, no wheezing, no rhonchi, appears comfortable on nasal cannula. no tachypnea abd- BS normal throughout, soft, slight distension-improved from yesterday, mild tenderness to palpation with no peritoneal signs or rigidity neuro- no focal deficits, CN 2-12 grossly intact skin- warm dry, mild discoloration of BL upper ext likely stasis from edema. - Assessment and Plan (1) HTN (hypertension) Current Visit: Yes Status: Chronic Assessment and Plan: Patient's blood pressures have remained in the 180s and 170s systolic Since approximately noon today, her most recent measurement at 1403 was 169/65. We will continue to follow this, and adjust hypertensive medication regimen as needed (2) Acute on chronic kidney failure Current Visit: Yes Status: Acute Assessment and Plan: Patient is responding well to treatment with dialysis, significant improvement in BUN/creatinine today Continued hemodialysis Continued consultation with nephrology Before discharge patient we need to determine if patient needs chronic dialysis, and set up outpatient dialysis chair (3) Acute and chronic respiratory failure with hypoxia Current Visit: Yes Status: Acute Assessment and Plan: Patient's O2 sat remains at 93% on 3 L nasal cannula. Signed symptoms of fluid overload have significantly improved after initiation of hemodialysis treatment (4) Chronic anemia Current Visit: Yes Status: Chronic Assessment and Plan: Hemoglobin measures have remained stable 8.5 today 8.3 yesterday 8.9 the day before Continue monitoring (5) Acute on chronic diastolic (congestive) heart failure Current Visit: Yes Status: Acute Assessment and Plan: Sinus symptoms heart failure improving dramatically with hemodialysis. Any adjustment to cardioactive medications at this time will be directed at her persistent elevated blood pressures, in the context of her chronic diastolic heart failure With patient off BiPAP, and clinically improving, she is safe to be downgraded to a general medical floor bed (6) Status post non-ST elevation myocardial infarction (NSTEMI) Current Visit: Yes Status: Acute Assessment and Plan: Patient is being closely monitored from cardiovascular standpoint Will continue telemetry monitoring Insure close outpatient cardiovascular follow-up (7) Fluid overload Current Visit: Yes Status: Acute Assessment and Plan: Continue hemodialysis treatments, Repeat chest x-ray in morning adjustments to her medication as needed DVT Prophylaxis: Subcutaneous heparin - Summary of Assessment and Plan Summary of Assessment and Plan: Downgrade to [facility] Continue telemetry monitoring May consider blood pressure medication adjustment this afternoon Reevaluate stated hearing loss tomorrow morning Repeat labs a.m. - Time Spent with Patient Total time spent is greater than 50% in coordination of care (as documented) at patient's floor/unit and/or counseling patient: Internal Medicine: Result - Labs CBC & Chem 7: 05/02/19 05:30 05/02/19 05:30 Labs: Short CBC 05/02/19 Range/Units 05:30 WBC 9.6 (4.3-11.1) K/mcL Hgb 8.5 L (11.5-15.4) g/dL Hct 26.2 L (35.3-44.9) % Plt Count 197 (140-400) K/mcL Neutrophils # 6.0 (1.6-8.9) K/mcL BMP 05/02/19 05:30 Sodium 137 Potassium 3.5 Chloride 98 Carbon Dioxide 30 H BUN 28 H Creatinine 2.06 H Glucose 95 Calcium 8.3 L - ABG Interpretation ABG results: PT/INR, D-dimer PT 13.1 Seconds (9.4-12.1) H 04/27/19 00:53 - Impressions Impressions Chest X-Ray 05/02/19 07:00 IMPRESSION: 1. Persistent though decreased interstitial edema likely due to improved congestive heart failure given mild cardiomegaly. Pneumonia could appear similar. 2. No significant change in bilateral pleural effusions and underlying bibasilar airspace opacities likely representing passive atelectasis, remaining worse on the left. D/ / oJe Locke MD / Joe Locke MD Interpreting Provider: Joe Locke MD Consult Discharge Plan - Plan Referrals: Deysi Sanchez CNP [Primary Care Provider] - 05/08/19 9:00 am () <Wing Mar - Last Filed: 05/02/19 15:43> Hospitalist Progress Note - Encounter Date of Encounter: 05/02/19 - Exam Vitals: Temp Pulse Resp BP Pulse Ox 97.6 F 89 18 169/65 93 05/02/19 14:03 05/02/19 14:03 05/02/19 14:03 05/02/19 14:03 05/02/19 14:03 - Assessment and Plan (1) Elevated troponin Current Visit: Yes Status: Acute (2) Acute on chronic kidney failure Current Visit: Yes Status: Acute (3) Diabetes Current Visit: Yes Status: Chronic (4) Chest pain Current Visit: Yes Status: Resolved (5) D-dimer, elevated Current Visit: Yes Status: Acute (6) Acute and chronic respiratory failure with hypoxia Current Visit: Yes Status: Acute (7) Chronic anemia Current Visit: Yes Status: Chronic (8) Acute on chronic diastolic (congestive) heart failure Current Visit: Yes Status: Acute (9) Pulmonary edema Current Visit: Yes Status: Acute - Time Spent with Patient Total time spent is greater than 50% in coordination of care (as documented) at patient's floor/unit and/or counseling patient: Internal Medicine: Result - Labs CBC & Chem 7: 05/02/19 05:30 05/02/19 05:30 Labs: Short CBC 05/02/19 Range/Units 05:30 WBC 9.6 (4.3-11.1) K/mcL Hgb 8.5 L (11.5-15.4) g/dL Hct 26.2 L (35.3-44.9) % Plt Count 197 (140-400) K/mcL Neutrophils # 6.0 (1.6-8.9) K/mcL BMP 05/02/19 05:30 Sodium 137 Potassium 3.5 Chloride 98 Carbon Dioxide 30 H BUN 28 H Creatinine 2.06 H Glucose 95 Calcium 8.3 L - ABG Interpretation ABG results: PT/INR, D-dimer PT 13.1 Seconds (9.4-12.1) H 04/27/19 00:53 - Impressions Impressions Chest X-Ray 05/02/19 07:00 IMPRESSION: 1. Persistent though decreased interstitial edema likely due to improved congestive heart failure given mild cardiomegaly. Pneumonia could appear similar. 2. No significant change in bilateral pleural effusions and underlying bibasilar airspace opacities likely representing passive atelectasis, remaining worse on the left. D/ / Joe Locke MD / Joe Locke MD Interpreting Provider: Joe Locke MD - Attending Attestation I examined this patient and my medical decision-making was reviewed with the Resident Physician on 05/02/19. I agree with the documented findings, disposition and treatment plan as described except to the extent set forth below. Ms Cortes is currently admitted for resp failure due to pulmonary edema. She is currently starting dialysis. She remains moderate to high risk due to potential for worsening respiratory status. Ms Cortes is doing OK. She still feels dyspneic. Dialysis today. No fever or chills. No CP. Tolerating dialysis. Exam: Alert. Comfortable. NC. EOMI. Mucus membranes dry. Neck supple. Lungs diminished. Heart not tachy. ABd soft. Moves all extremities. No rash. I/P 1. Resp failure - supportive care. Wean as able 2. Pulmonary edema - dialysis started. Further diagnoses and plan as above. <Farzad Lomas - Last Filed: 05/02/19 13:24> (1) HTN (hypertension) Qualifiers: Hypertension type: unspecified Qualified Code(s): I10 - Essential (primary) hypertension (2) Acute on chronic kidney failure Qualifiers: Acute renal failure type: unspecified Chronic kidney disease stage: stage 3 (moderate) Qualified Code(s): N17.9 - Acute kidney failure, unspecified; N18.3 - Chronic kidney disease, stage 3 (moderate) (7) Fluid overload Qualifiers: Hypervolemia type: other Qualified Code(s): E87.79 - Other fluid overload <Wing Mar - Last Filed: 05/02/19 15:43> (2) Acute on chronic kidney failure Qualifiers: Acute renal failure type: unspecified Chronic kidney disease stage: stage 3 (moderate) Qualified Code(s): N17.9 - Acute kidney failure, unspecified; N18.3 - Chronic kidney disease, stage 3 (moderate) (3) Diabetes Qualifiers: Diabetes mellitus type: type 2 Diabetes mellitus fdc insulin use: without data warehouse consultant use Diabetes mellitus complication status: with kidney complications Diabetes mellitus complication detail: with chronic kidney disease Chronic kidney disease stage: stage 3 (moderate) Qualified Code(s): E11.22 - Type 2 diabetes mellitus with diabetic chronic kidney disease; N18.3 - Chronic kidney disease, stage 3 (moderate) (4) Chest pain Qualifiers: Chest pain type: other chest pain Qualified Code(s): R07.89 - Other chest pain; R07.8 - Other chest pain (9) Pulmonary edema Qualifiers: Chronicity: acute Qualified Code(s): J81.0 - Acute pulmonary edema
[2019-05-02] MEDS ORDERED: 0.9 % Sodium Chloride 250 ML IVC PRN (09:06)
[2019-05-02] MEDS ORDERED: *HR* Heparin 10,000 UNIT/10 ML VIAL IV PRN ×2 (09:06)
[2019-05-02] MEDS: Sucralfate 1 GM TABLET PO SCH ×4 (12:53→22:00)
[2019-05-02] MEDS: Diltiazem CD (24hr) 180 MG CAPSULE PO SCH (14:07)
[2019-05-02] MEDS: amLODIPine 5 MG TABLET PO SCH (14:07)
[2019-05-02] MEDS: Isosorbide MONOnitrate (24 HR) 60 MG TAB.ER.24H PO SCH (14:15)
[2019-05-02] MEDS: Aspirin Enteric Coated 81 MG Tablet PO SCH (14:15)
[2019-05-02] MEDS: Acetaminophen 325 MG TABLET PO PRN (17:49)
[2019-05-03] MEDS: hydrALAZINE 25 MG TABLET PO SCH ×3 (00:17→15:25)
[2019-05-03] MEDS: Nitroglycerin 25 MG/250 ML INFUS..BTL IVC SCH (00:17)
--- NOTE | 2019-05-03 02:03 | Nephrology Progress Note ---
Date of Encounter: 05/02/19 Time of Encounter: 12:00 - Assessment and Plan (1) SHANTANU (acute kidney injury) Current Visit: Yes Status: Acute SCr better after second HD session. Third HD session underway with goal UF 2-3kg as tolerated. UOP remains poor at 425cc in the past 24hrs, will monitor for renal recovery Continue fluid restriction Continue to avoid nephrotoxins if possible (2) CKD (chronic kidney disease) stage 4, GFR 15-29 ml/min Current Visit: Yes Status: Acute Baseline GFR in the 20s (3) Acute on chronic diastolic (congestive) heart failure Current Visit: Yes Status: Acute Improving with UF as above Continue strict I/Os Continue fluid restriction Will consider decreasing amlodipine to 5mg daily as can cause edema (4) Chest pain Current Visit: No Status: Suspected Per primary, +d-dimer noted. resolved Qualifiers: Chest pain type: chest pain due to myocardial ischemia Ischemic chest pain type: unstable angina pectoris Qualified Code(s): I20.0 - Unstable angina (5) Anemia Current Visit: No Status: Chronic Hgb noted at 8.5 s/p transfusion pRBCs, will monitor Qualifiers: Anemia type: unspecified type Qualified Code(s): D64.9 - Anemia, unspecified Subjective Interval history: Pt seen and examined on HD for a third consecutive session off biPAP and breathing better Objective - Vital Signs Vital signs: Vital Signs Temp Pulse Resp BP Pulse Ox 05/03/19 00:25 12 98 05/03/19 00:00 97.6 F 79 19 126/58 98 05/02/19 21:54 16 98 05/02/19 19:00 98.6 F 66 20 118/55 92 05/02/19 16:13 98.5 F 84 18 154/65 94 05/02/19 16:02 16 93 05/02/19 14:03 97.6 F 89 18 169/65 93 05/02/19 13:33 98.7 F 16 176/70 05/02/19 12:55 175/72 05/02/19 12:40 180/69 05/02/19 12:25 183/68 05/02/19 12:10 184/71 05/02/19 11:55 180/64 05/02/19 11:40 164/67 05/02/19 11:25 169/63 05/02/19 11:10 171/60 05/02/19 10:55 157/62 05/02/19 10:40 159/68 05/02/19 10:25 167/65 05/02/19 10:10 16 164/67 93 05/02/19 09:55 98.5 F 15 176/70 05/02/19 07:13 97.9 F 85 18 153/63 93 05/02/19 04:12 12 148/60 98 05/02/19 03:10 98.0 F 72 18 148/60 98 Intake and Output 05/02/19 05/02/19 05/03/19 15:59 23:59 07:59 Intake Total 860 / 860 400 / 400 Output Total 3500 / 4030 180 / 4030 25 / 25 Balance -2640 / -3170 -180 / -3170 375 / 375 Intake: Oral 360 / 360 400 / 400 Intake, Rinseback and Flushes 500 / 500 Output: Urine 0 / 0 Total Dialysis (HD) Output 3500 / 3500 Catheter 180 / 330 25 / 25 Urethral (Gilbert) 0 / 0 Other: Meal Lunch Dinner Percent of Meal Consumed 100% 40% Blood Glucose* 96 162 Hemodialysis Net Fluid Removed 3000 (mL) - General Appearance General appearance: Present: well-developed, well-nourished (NAD) EENT: Present: ATNC, mucous membranes moist Neck: Present: no JVD, supple Additional Comments: improved areation ant bilat Cardiology: Present: edema (improved UE/LE bilat), normal S1, normal S2 Dialysis Vascular Access: Venous Catheter (temp line) Gastrointestinal: Present: no tenderness, no guarding Integumentary: Present: warm and dry Neurologic: Present: no focal deficit Musculoskeletal: Present: no deformities Psychiatric: Present: mood/affect appropriate, cooperative - Lab 05/02/19 05:30 05/02/19 05:30 Consult Discharge Plan - Plan Referrals: Deysi Sanchez CNP [Primary Care Provider] - 05/08/19 9:00 am ()
[2019-05-03] MEDS: Levalbuterol Neb 0.63 MG/3 ML IH SCH ×4 (04:05→22:16)
[2019-05-03 04:16] LABS: Basophils # 0.1 K/mcL (0.0-0.2); Basophils % 0.6 %; Eosinophils # 0.6 K/mcL (0.0-0.6); Eosinophils % 6.7 %; Hematocrit 27.1 % (35.3-44.9); Hemoglobin 8.7 g/dL (11.5-15.4); Immature Granulocytes % 1.1 % (0-4); Lymphocytes # 1.9 K/mcL (0.6-4.6); Lymphocytes % 23.2 %; Mean Corpuscular HGB Conc 32.1 g/dL (31.6-35.5); Mean Corpuscular Hemoglobin 27.4 pg (28.0-33.3); Mean Corpuscular Volume 85.2 fL (83.0-100.0); Monocytes # 1.3 K/mcL (0.0-1.3); Monocytes % 15.4 %; Neutrophils # 4.5 K/mcL (1.6-8.9); Platelet Count 190 K/mcL (140-400); Red Blood Count 3.18 M/mcL (3.82-4.97); Red Cell Distribution Width 17.2 % (11.5-14.5); White Blood Count 8.4 K/mcL (4.3-11.1)
[2019-05-03 04:28] LABS: Calcium 8.5 mg/dL (8.6-10.3); Potassium 3.6 mEq/L (3.5-5.1)
[2019-05-03] MEDS: *HR* Heparin 5,000 UNIT/ML VIAL SQ SCH ×3 (06:01→22:29)
--- NOTE | 2019-05-03 08:29 | Internal Med Progress Note ---
<Farzad Lomas S - Last Filed: 05/03/19 13:51> Hospitalist Progress Note - Encounter Date of Encounter: 05/03/19 Time of Encounter: 08:29 - Exam Vitals: Temp Pulse Resp BP Pulse Ox 98.2 F 78 18 169/72 92 05/03/19 07:02 05/03/19 07:02 05/03/19 07:02 05/03/19 07:02 05/03/19 07:02 Exam: Gen: Awake and alert, no acute distress, well-nourished, well kempt Head: Normocephalic, atraumatic Eyes: EOMI, no scleral icterus ENT: Mucous membranes moist, CV: S1-S2 present, regular at a rate , no murmurs rubs or gallops Pulm: coarse breath sounds present-improved from yesterday, not tachypneic, no respiratory distress, slightly increased work of breathing-Improved from EXT: Grossly intact motor strength in all 4 extremities, trace lower extremity edema, no UE edema, no distal cyanosis or pallor Skin: Warm, dry, intact, no rashes or lesions noted Neuro: Cranial nerves II-XII grossly intact, no focal nurologic deficits Psych: normal mood and affect, Answers questions with intact judgement, appropriate insight, and linear thought - Assessment and Plan (1) Fluid overload Current Visit: Yes Status: Acute Assessment and Plan: 83-year-old female patient with fluid overload secondary to CK D and CHF. Responding well to hemodialysis. Maintain fluid restriction of 1.5 L day Maintain strict I's and O's (2) Acute on chronic kidney failure Current Visit: Yes Status: Acute Assessment and Plan: Kidney function is improved again today, with BUN dropping to 19 from 28, and creatinine dropping to 1.73 from 2.06. Of note, there was gross hematuria in her Gilbert bag this morning. Patient inquired as to what would happen if her kidneys did not improve, we discussed medical management, and the possibility for outpatient dialysis. Hemodialysis break today as recommended by nephrology, Resume urinalysis tomorrow Continue current medical management (3) Acute and chronic respiratory failure with hypoxia Current Visit: Yes Status: Acute Assessment and Plan: Patient was completely BiPAP dependent as recently as earlier this week, her condition has dramatically improved since initiation of hemodialysis treatments. While I was present in the room this morning, her oxygen saturation remained at 92-93% while on 3 L by nasal cannula. She is able to speak in full sentences without causing to take a breath, and auscultation of her lungs showed increased air movement when compared with yesterday. Chest x-ray showed mild improving pulmonary edema, we will repeat again in the morning. Continued monitoring and reassessment for need of BiPAP support. Maintain nasal cannula oxygen titrated to a goal saturation of 92-93% (4) Acute on chronic diastolic (congestive) heart failure Current Visit: Yes Status: Acute Assessment and Plan: Improving with hemodialysis Amlodipine was decreased to 5 mg daily per recommendations nephrology to avoid adverse effect of edema Continue fluid restriction Continue low-sodium diet And a new strict I's and O's (5) HTN (hypertension) Current Visit: Yes Status: Chronic Assessment and Plan: BP has been better controlled today as compared to yesterday, continue current antihypertensive regimen (6) Chronic anemia Current Visit: Yes Status: Chronic (7) Status post non-ST elevation myocardial infarction (NSTEMI) Current Visit: Yes Status: Acute DVT Prophylaxis: Subcutaneous heparin - Summary of Assessment and Plan Summary of Assessment and Plan: Downgraded to GMF, waiting on placement Continue telemetry monitoring Patient did not report hearing loss this morning Repeat labs a.m. - Time Spent with Patient Total time spent is greater than 50% in coordination of care (as documented) at patient's floor/unit and/or counseling patient: Internal Medicine: Result - Labs CBC & Chem 7: 05/03/19 03:20 05/03/19 03:20 Labs: Short CBC 05/03/19 Range/Units 03:20 WBC 8.4 (4.3-11.1) K/mcL Hgb 8.7 L (11.5-15.4) g/dL Hct 27.1 L (35.3-44.9) % Plt Count 190 (140-400) K/mcL Neutrophils # 4.5 (1.6-8.9) K/mcL BMP 05/03/19 03:20 Sodium 135 L Potassium 3.6 Chloride 99 Carbon Dioxide 29 BUN 19 Creatinine 1.73 H Glucose 99 Calcium 8.5 L - ABG Interpretation ABG results: PT/INR, D-dimer PT 13.1 Seconds (9.4-12.1) H 04/27/19 00:53 - Impressions Impressions Chest X-Ray 05/03/19 07:00 IMPRESSION: Central line stable. Cardiomegaly with mild improving central pulmonary edema. D/ / Ino Gimenez MD / Ino Gimenez MD Interpreting Provider: Ino Gimenez MD Consult Discharge Plan - Plan Referrals: Deysi Sanchez CNP [Primary Care Provider] - 05/08/19 9:00 am () <Wing Mar - Last Filed: 05/03/19 15:26> Hospitalist Progress Note - Encounter Date of Encounter: 05/03/19 - Exam Vitals: Temp Pulse Resp BP Pulse Ox 97.7 F 71 18 131/59 95 05/03/19 11:21 05/03/19 11:45 05/03/19 11:21 05/03/19 11:21 05/03/19 11:21 - Assessment and Plan (1) Acute on chronic kidney failure Current Visit: Yes Status: Acute (2) Diabetes Current Visit: Yes Status: Chronic (3) Chest pain Current Visit: Yes Status: Resolved (4) D-dimer, elevated Current Visit: Yes Status: Acute (5) Acute and chronic respiratory failure with hypoxia Current Visit: Yes Status: Acute (6) Chronic anemia Current Visit: Yes Status: Chronic (7) Acute on chronic diastolic (congestive) heart failure Current Visit: Yes Status: Acute (8) Pulmonary edema Current Visit: Yes Status: Acute (9) Non-ST elevation CO (NSTEMI) Current Visit: No Status: Resolved Assessment and Plan: Pt had NSTEMI prior hospitalization - not recurrent now. - Time Spent with Patient Total time spent is greater than 50% in coordination of care (as documented) at patient's floor/unit and/or counseling patient: Internal Medicine: Result - Labs CBC & Chem 7: 05/03/19 03:20 05/03/19 03:20 Labs: Short CBC 05/03/19 Range/Units 03:20 WBC 8.4 (4.3-11.1) K/mcL Hgb 8.7 L (11.5-15.4) g/dL Hct 27.1 L (35.3-44.9) % Plt Count 190 (140-400) K/mcL Neutrophils # 4.5 (1.6-8.9) K/mcL BMP 05/03/19 03:20 Sodium 135 L Potassium 3.6 Chloride 99 Carbon Dioxide 29 BUN 19 Creatinine 1.73 H Glucose 99 Calcium 8.5 L - ABG Interpretation ABG results: PT/INR, D-dimer PT 13.1 Seconds (9.4-12.1) H 04/27/19 00:53 - Impressions Impressions Chest X-Ray 05/03/19 07:00 IMPRESSION: Central line stable. Cardiomegaly with mild improving central pulmonary edema. D/ / Ino Gimenez MD / Ino Gimenez MD Interpreting Provider: Ino Gimenez MD - Attending Attestation I examined this patient and my medical decision-making was reviewed with the Resident Physician on 05/03/19. I agree with the documented findings, disposition and treatment plan as described except to the extent set forth below. Ms Cortes is currently admitted for acute resp failure due to volume overload. She remains moderate to high risk due to potential for worsening clinical status. Ms Cortes is up eating lunch. She has tolerated dialysis last 3 days. No fever or chills. Overall she is feeling better. No CP. No GI issues. Exam Alert. Comfortable. NC. EOMI. Mucus membranes dry. Heart distant and regular. Decreased breath sounds. Abd soft. Edema present though better. Moves all extremities. No rash. Plan: Continue monitor renal function. Wean oxygen. Continue DAPT. <Farzad Lomas Oren - Last Filed: 05/03/19 13:51> (1) Fluid overload Qualifiers: Hypervolemia type: other Qualified Code(s): E87.79 - Other fluid overload (2) Acute on chronic kidney failure Qualifiers: Acute renal failure type: unspecified Chronic kidney disease stage: stage 3 (moderate) Qualified Code(s): N17.9 - Acute kidney failure, unspecified; N18.3 - Chronic kidney disease, stage 3 (moderate) (5) HTN (hypertension) Qualifiers: Hypertension type: unspecified Qualified Code(s): I10 - Essential (primary) hypertension <Wing Mar - Last Filed: 05/03/19 15:26> (1) Acute on chronic kidney failure Qualifiers: Acute renal failure type: unspecified Chronic kidney disease stage: stage 3 (moderate) Qualified Code(s): N17.9 - Acute kidney failure, unspecified; N18.3 - Chronic kidney disease, stage 3 (moderate) (2) Diabetes Qualifiers: Diabetes mellitus type: type 2 Diabetes mellitus nursing home insulin use: without rodent exterminator use Diabetes mellitus complication status: with kidney complications Diabetes mellitus complication detail: with chronic kidney disease Chronic kidney disease stage: stage 3 (moderate) Qualified Code(s): E11.22 - Type 2 diabetes mellitus with diabetic chronic kidney disease; N18.3 - Chronic kidney disease, stage 3 (moderate) (3) Chest pain Qualifiers: Chest pain type: other chest pain Qualified Code(s): R07.89 - Other chest pain; R07.8 - Other chest pain (8) Pulmonary edema Qualifiers: Chronicity: acute Qualified Code(s): J81.0 - Acute pulmonary edema
[2019-05-03] MEDS: Aspirin Enteric Coated 81 MG Tablet PO SCH (09:14)
[2019-05-03] MEDS: Diltiazem CD (24hr) 180 MG CAPSULE PO SCH (09:14)
[2019-05-03] MEDS: Isosorbide MONOnitrate (24 HR) 60 MG TAB.ER.24H PO SCH (09:14)
[2019-05-03] MEDS: amLODIPine 5 MG TABLET PO SCH (09:15)
[2019-05-03] MEDS: Sucralfate 1 GM TABLET PO SCH ×4 (09:15→22:29)
[2019-05-03] MEDS: Insulin LISPRO 300 UNITS/3 ML VIAL SQ SCH ×4 (09:16→22:29)
[2019-05-03] MEDS ORDERED: Furosemide 20 MG/2 ML VIAL IVP ONE (16:15)
[2019-05-04] MEDS: hydrALAZINE 25 MG TABLET PO SCH ×4 (01:24→22:06)
[2019-05-04] MEDS: Levalbuterol Neb 0.63 MG/3 ML IH SCH ×4 (03:34→22:17)
[2019-05-04] MEDS: *HR* Heparin 5,000 UNIT/ML VIAL SQ SCH ×3 (05:29→22:06)
[2019-05-04 05:48] LABS: Basophils # 0.1 K/mcL (0.0-0.2); Eosinophils # 0.6 K/mcL (0.0-0.6); Eosinophils % 7.9 %; Hematocrit 26.9 % (35.3-44.9); Hemoglobin 8.8 g/dL (11.5-15.4); Lymphocytes # 2.3 K/mcL (0.6-4.6); Lymphocytes % 28.8 %; Mean Corpuscular HGB Conc 32.7 g/dL (31.6-35.5); Mean Corpuscular Hemoglobin 27.8 pg (28.0-33.3); Mean Corpuscular Volume 84.9 fL (83.0-100.0); Mean Platelet Volume 11.1 fL (9.4-12.4); Monocytes # 1.1 K/mcL (0.0-1.3); Neutrophils # 3.7 K/mcL (1.6-8.9); Nucleated Red Blood Cells 0.3 /100 WBC (0); Platelet Count 189 K/mcL (140-400); Red Blood Count 3.17 M/mcL (3.82-4.97); Red Cell Distribution Width 17.3 % (11.5-14.5); Segmented Neutrophils % 47.3 %; White Blood Count 7.9 K/mcL (4.3-11.1)
[2019-05-04 06:08] LABS: Calcium 8.5 mg/dL (8.6-10.3); Potassium 3.3 mEq/L (3.5-5.1)
--- NOTE | 2019-05-04 07:49 | Internal Med Progress Note ---
<AylinParam M - Last Filed: 05/04/19 12:10> Hospitalist Progress Note - Encounter Date of Encounter: 05/04/19 Time of Encounter: 07:48 - Subjective Interval History: Pt is awake, in bed. Appears comfortable. Slight increased work of breathing, although she states this is mildly improved. Reports continued weakness and fatigue. She states that she is not ready to go home today secondary to weakness. We discussed further management with nephrology today, possiblility of op HD. - Exam Vitals: Temp Pulse Resp BP Pulse Ox 98.8 F 88 18 158/63 94 05/04/19 07:32 05/04/19 07:32 05/04/19 07:32 05/04/19 07:32 05/04/19 07:32 Exam: Gen: Awake and alert, no acute distress, well-nourished, well kempt Head: Normocephalic, atraumatic Eyes: EOMI, no scleral icterus. Conjunctiva normal. ENT: Mucous membranes moist, CV: S1-S2 present, regular at a rate , no murmurs rubs or gallops Pulm: coarse breath sounds and wheezing present and slightly improved, no respiratory distress, mild increased work of breathing. EXT: trace lower extremity edema improving, UE edema resolved, no distal cyanosis or pallor Skin: Warm, dry, intact, no rashes or lesions noted Neuro: Cranial nerves II-XII grossly intact, no focal nurologic deficits Psych: normal mood and affect, Answers questions with intact judgement, appropriate insight, and linear thought - Assessment and Plan (1) Acute on chronic kidney failure Current Visit: Yes Status: Acute Assessment and Plan: Kidney function reduced today after third HD. BUN increased from 19 to 24, creatinine increased 1.73 to 2.14. Continue to follow with nephrology. Potassium 3.3 today. Plan to replace prior to ultrafiltration. - Plan for ultrafiltration today - 20 meq KCl PO once. - Avoid nephrotoxins. - Maintain fluid restriction - Strict I's and O's (2) Fluid overload Current Visit: Yes Status: Acute Assessment and Plan: Increased work of breathing is improving. Pt tolerating bipap. Fluid overload secondary to CKD. - Responding well to HD. - Fluid restriction to 1.5 L per day. - Strict I's and O's. (3) Acute on chronic diastolic (congestive) heart failure Current Visit: Yes Status: Acute Assessment and Plan: Pt has improved significantly since HD and bipap therapy. Oxygen sat 92-96 on 3 L. Slight increased work of breathing which appears to be improving. CXR this morning demonstrated stable chest with left basilar atelectasis/infiltrate. No comment from rad on central pulmonary edema, however this appears to be improving based on our assessment. - Pt treated with one 30 minute session of bipap this AM. - Plan to de-escalate use of bipap. - Continue norvasc at 5 mg to avoid edema. - O2 sat goal >92%. (4) Acute and chronic respiratory failure with hypoxia Current Visit: Yes Status: Acute Assessment and Plan: O2 saturation is stable on 3 L nasal cannula. Averaging 92-94%. 98-99% on bipap. This is significantly improved since initiating HD. -Nocturnal bipap study in the coming days for home bipap evaluation. -Fluid restriction to 1.5 L per day. -Plan to de-escalate bipap. -Strict I's and O's (5) HTN (hypertension) Current Visit: Yes Status: Chronic Assessment and Plan: BP still slightly elevated but pt currently stable, asymptomatic. - Continue home bp medication regimen. - Continue norvasc at 5mg to avoid edema. (6) Chronic anemia Current Visit: Yes Status: Chronic Assessment and Plan: S/P transfusion of PRBC. Hgb up from 8.7 to 8.8 today. - Continue supp iron. - Start vitamin b12 per nephrology recommendations. (7) Status post non-ST elevation myocardial infarction (NSTEMI) Current Visit: Yes Status: Acute Assessment and Plan: CP has resolved. Continue home medications. - Continue ASA, plavix. - Norvasc reduced to 5 mg yesterday. DVT Prophylaxis: SQ heparin - Time Spent with Patient Total time spent is greater than 50% in coordination of care (as documented) at patient's floor/unit and/or counseling patient: Plan of Care Discussed with: patient Internal Medicine: Result - Labs CBC & Chem 7: 05/04/19 04:30 05/04/19 04:30 Labs: Short CBC 05/04/19 Range/Units 04:30 WBC 7.9 (4.3-11.1) K/mcL Hgb 8.8 L (11.5-15.4) g/dL Hct 26.9 L (35.3-44.9) % Plt Count 189 (140-400) K/mcL Neutrophils # 3.7 (1.6-8.9) K/mcL BMP 05/04/19 04:30 Sodium 138 Potassium 3.3 L Chloride 99 Carbon Dioxide 29 BUN 24 H Creatinine 2.14 H Glucose 90 Calcium 8.5 L - ABG Interpretation ABG results: PT/INR, D-dimer PT 13.1 Seconds (9.4-12.1) H 04/27/19 00:53 - Impressions Impressions Chest X-Ray 05/03/19 07:00 IMPRESSION: Central line stable. Cardiomegaly with mild improving central pulmonary edema. D/ / Ino Gimenez MD / Ino Gimenez MD Interpreting Provider: Ino Gimenez MD Consult Discharge Plan - Plan Referrals: Deysi Sanchez CNP [Primary Care Provider] - 05/08/19 9:00 am () <Wing Mar - Last Filed: 05/04/19 13:46> Hospitalist Progress Note - Encounter Date of Encounter: 05/04/19 - Exam Vitals: Temp Pulse Resp BP Pulse Ox 98.8 F 88 18 158/63 94 05/04/19 07:32 05/04/19 07:32 05/04/19 07:32 05/04/19 07:32 05/04/19 07:32 - Assessment and Plan (1) Acute on chronic kidney failure Current Visit: Yes Status: Acute (2) Diabetes Current Visit: Yes Status: Chronic (3) Chest pain Current Visit: Yes Status: Resolved (4) D-dimer, elevated Current Visit: Yes Status: Acute (5) Acute and chronic respiratory failure with hypoxia Current Visit: Yes Status: Acute (6) Chronic anemia Current Visit: Yes Status: Chronic (7) Acute on chronic diastolic (congestive) heart failure Current Visit: Yes Status: Acute (8) Pulmonary edema Current Visit: Yes Status: Acute (9) Non-ST elevation LA (NSTEMI) Current Visit: No Status: Resolved - Time Spent with Patient Total time spent is greater than 50% in coordination of care (as documented) at patient's floor/unit and/or counseling patient: Internal Medicine: Result - Labs CBC & Chem 7: 05/04/19 04:30 05/04/19 04:30 Labs: Short CBC 05/04/19 Range/Units 04:30 WBC 7.9 (4.3-11.1) K/mcL Hgb 8.8 L (11.5-15.4) g/dL Hct 26.9 L (35.3-44.9) % Plt Count 189 (140-400) K/mcL Neutrophils # 3.7 (1.6-8.9) K/mcL BMP 05/04/19 04:30 Sodium 138 Potassium 3.3 L Chloride 99 Carbon Dioxide 29 BUN 24 H Creatinine 2.14 H Glucose 90 Calcium 8.5 L - ABG Interpretation ABG results: PT/INR, D-dimer PT 13.1 Seconds (9.4-12.1) H 04/27/19 00:53 - Impressions Impressions Chest X-Ray 05/04/19 07:30 IMPRESSION: Stable chest with left basilar atelectasis/infiltrate. D/ / Micheal Evans MD / Micheal Evans MD Interpreting Provider: Micheal Evans MD - Attending Attestation I examined this patient and my medical decision-making was reviewed with the Resident Physician on 05/04/19. I agree with the documented findings, dispo sition and treatment plan as described except to the extent set forth below. Ms Cortes is currently admitted for acute resp failure and renal failure. She remains moderate to high risk due to potential for worsening clinical status. Ms Cortes is in dialysis. She says she is doing OK. No fever or chills. Breathing about the same. No other issues. Exam: Alert. Comfortable. Mucus membranes dry. NC. EOMI. Not tachycardic. No wheeze. Less edema. Moves all extremities. No rash. Plan: Continue per renal service. Continue supportive resp care - may do bipap study before discharge. <Param Viera - Last Filed: 05/04/19 12:10> (1) Acute on chronic kidney failure Qualifiers: Acute renal failure type: unspecified Chronic kidney disease stage: stage 3 (moderate) Qualified Code(s): N17.9 - Acute kidney failure, unspecified; N18.3 - Chronic kidney disease, stage 3 (moderate) (2) Fluid overload Qualifiers: Hypervolemia type: other Qualified Code(s): E87.79 - Other fluid overload (5) HTN (hypertension) Qualifiers: Hypertension type: unspecified Qualified Code(s): I10 - Essential (primary) hypertension <Wing Mar - Last Filed: 05/04/19 13:46> (1) Acute on chronic kidney failure Qualifiers: Acute renal failure type: unspecified Chronic kidney disease stage: stage 3 (moderate) Qualified Code(s): N17.9 - Acute kidney failure, unspecified; N18.3 - Chronic kidney disease, stage 3 (moderate) (2) Diabetes Qualifiers: Diabetes mellitus type: type 2 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
[2019-05-04] MEDS: amLODIPine 5 MG TABLET PO SCH (08:38)
[2019-05-04] MEDS: Isosorbide MONOnitrate (24 HR) 60 MG TAB.ER.24H PO SCH (08:38)
[2019-05-04] MEDS: Sucralfate 1 GM TABLET PO SCH ×4 (08:38→22:06)
[2019-05-04] MEDS: Diltiazem CD (24hr) 180 MG CAPSULE PO SCH (08:38)
[2019-05-04] MEDS: Aspirin Enteric Coated 81 MG Tablet PO SCH (08:39)
[2019-05-04] MEDS: Insulin LISPRO 300 UNITS/3 ML VIAL SQ SCH ×4 (08:39→21:55)
[2019-05-04] MEDS ORDERED: 0.9 % Sodium Chloride 250 ML IVC PRN (08:53)
--- NOTE | 2019-05-04 08:53 | Nephrology Progress Note ---
Date of Encounter: 05/03/19 Time of Encounter: 11:00 - Assessment and Plan (1) SHANTANU (acute kidney injury) Current Visit: Yes Status: Acute SCr better after third HD session. UOP remains poor. will monitor for renal recovery. Will give a trial of iv furosemide to see if her urine output improves. Continue fluid restriction Continue to avoid nephrotoxins if possible We will check daily for dialysis/ultrafiltration need. (2) CKD (chronic kidney disease) stage 4, GFR 15-29 ml/min Current Visit: Yes Status: Acute Baseline GFR in the 20s (3) Chest pain Current Visit: No Status: Suspected Qualifiers: Chest pain type: chest pain due to myocardial ischemia Ischemic chest pain type: unstable angina pectoris Qualified Code(s): I20.0 - Unstable angina (4) Anemia Current Visit: No Status: Chronic Hgb noted. s/p transfusion pRBCs, will monitor Qualifiers: Anemia type: unspecified type Qualified Code(s): D64.9 - Anemia, unspecified (5) Acute on chronic diastolic (congestive) heart failure Current Visit: Yes Status: Acute Improving with UF as above Continue strict I/Os Continue fluid restriction Will consider decreasing amlodipine to 5mg daily as can cause edema Subjective Principal diagnosis: shantanu Interval history: The patient was seen and evaluated. She states she was feeling much better. She wants to go home. She states her breathing is much improved and she notices the decreased swelling in her arms and legs. The remainder of her review of s ystems is overall stable. Objective - Vital Signs Vital signs: Vital Signs Temp Pulse Resp BP Pulse Ox 05/04/19 07:32 98.8 F 88 18 158/63 94 05/04/19 03:34 18 98 05/04/19 03:11 98.2 F 84 18 149/56 98 05/03/19 23:48 98.1 F 80 18 156/56 95 05/03/19 22:16 20 93 05/03/19 18:57 97.8 F 83 20 150/72 96 05/03/19 15:42 16 93 05/03/19 15:23 76 18 140/61 93 05/03/19 11:45 71 05/03/19 11:21 97.7 F 74 18 131/59 95 05/03/19 10:57 18 92 Intake and Output 05/03/19 05/04/1919 23:59 07:59 15:59 Intake Total 120 / 640 Balance 120 / 465 Intake: Oral 120 / 640 Other: Meal Dinner Percent of Meal Consumed 25% # Voids 1 1 Weight 78.8 kg Blood Glucose* 104 97 Patient Weight 05/04/19 23:59 Weight 78.8 kg - General Appearance General appearance: Present: well-developed, well-nourished, obese EENT: Present: ATNC Neck: Present: supple Respiratory: Present: clear, rhonchi Cardiology: Present: edema, regular rate Dialysis Vascular Access: Venous Catheter Gastrointestinal: Present: obese Integumentary: Present: warm and dry Neurologic: Present: alert and oriented x3 Musculoskeletal: Present: no cyanosis Psychiatric: Present: mood/affect appropriate - Lab 05/04/19 04:30 05/04/19 04:30 Most recent lab results 05/04/19 04:30 Calcium 8.5 L Consult Discharge Plan - Plan Referrals: Deysi Sanchez CNP [Primary Care Provider] - 05/08/19 9:00 am ()
--- NOTE | 2019-05-04 09:01 | Nephrology Progress Note ---
Date of Encounter: 05/04/19 Time of Encounter: 08:58 - Assessment and Plan (1) SHANTANU (acute kidney injury) Current Visit: Yes Status: Acute SCr better after third HD session, but virgie after not receiving dialysis for 1 day. UOP remains poor despite furosemide.. will monitor for renal recovery. Plan for ultrafiltration today secondary to increased dyspnea and poor renal response to furosemide. Continue fluid restriction Continue to avoid nephrotoxins if possible We will check daily for dialysis/ultrafiltration need. (2) CKD (chronic kidney disease) stage 4, GFR 15-29 ml/min Current Visit: Yes Status: Acute Baseline GFR in the 20s (3) Chest pain Current Visit: No Status: Suspected Qualifiers: Chest pain type: chest pain due to myocardial ischemia Ischemic chest pain type: unstable angina pectoris Qualified Code(s): I20.0 - Unstable angina (4) Anemia Current Visit: No Status: Chronic Hgb noted. s/p transfusion pRBCs, will monitor Continue supplemental iron. We will start supplemental vitamin B12. Qualifiers: Anemia type: unspecified type Qualified Code(s): D64.9 - Anemia, unspecified (5) Acute on chronic diastolic (congestive) heart failure Current Visit: Yes Status: Acute Improving with UF as above Continue strict I/Os Continue fluid restriction Subjective Principal diagnosis: shantanu Interval history: The patient was seen. She is complaining of increased shortness of breath overnight. Yesterday she wanted to go home, however today, she wants to receive dialysis. She denies chest pain. The remainder of her review of systems is either negative or stable. Objective - Vital Signs Vital signs: Vital Signs Temp Pulse Resp BP Pulse Ox 05/04/19 07:32 98.8 F 88 18 158/63 94 05/04/19 03:34 18 98 05/04/19 03:11 98.2 F 84 18 149/56 98 05/03/19 23:48 98.1 F 80 18 156/56 95 05/03/19 22:16 20 93 05/03/19 18:57 97.8 F 83 20 150/72 96 05/03/19 15:42 16 93 05/03/19 15:23 76 18 140/61 93 05/03/19 11:45 71 05/03/19 11:21 97.7 F 74 18 131/59 95 05/03/19 10:57 18 92 Intake and Output 05/03/19 05/04/19 05/04/19 23:59 07:59 15:59 Intake Total 120 / 640 Balance 120 / 465 Intake: Oral 120 / 640 Other: Meal Dinner Percent of Meal Consumed 25% # Voids 1 1 Weight 78.8 kg Blood Glucose* 104 97 Patient Weight 05/04/19 23:59 Weight 78.8 kg - General Appearance General appearance: Present: well-developed, well-nourished EENT: Present: ATNC Neck: Present: supple Cardiology: Present: regular rate Dialysis Vascular Access: Venous Catheter Neurologic: Present: alert and oriented x3 Psychiatric: Present: mood/affect appropriate - Lab 05/04/19 04:30 05/04/19 04:30 Most recent lab results 05/04/19 04:30 Calcium 8.5 L Consult Discharge Plan - Plan Referrals: Deysi Sanchez CNP [Primary Care Provider] - 05/08/19 9:00 am ()
[2019-05-04] MEDS ORDERED: Potassium Chloride Elixir 20 MEQ/15 ML UDC PO ONE (09:20)
[2019-05-04] MEDS: Acetaminophen 325 MG TABLET PO PRN (22:09)
[2019-05-05] MEDS: *HR* Heparin 5,000 UNIT/ML VIAL SQ SCH ×3 (04:13→22:25)
[2019-05-05] MEDS: hydrOXYzine pamoate 25 MG CAPSULE PO PRN ×2 (04:14→22:26)
[2019-05-05] MEDS: Levalbuterol Neb 0.63 MG/3 ML IH SCH ×4 (04:22→21:58)
[2019-05-05 04:47] LABS: Basophils # 0.1 K/mcL (0.0-0.2); Basophils % 0.9 %; Eosinophils # 0.6 K/mcL (0.0-0.6); Eosinophils % 7.3 %; Hematocrit 28.2 % (35.3-44.9); Immature Granulocytes % 0.9 % (0-4); Lymphocytes # 2.1 K/mcL (0.6-4.6); Lymphocytes % 23.8 %; Mean Corpuscular HGB Conc 31.9 g/dL (31.6-35.5); Mean Corpuscular Hemoglobin 26.9 pg (28.0-33.3); Mean Corpuscular Volume 84.2 fL (83.0-100.0); Mean Platelet Volume 11.1 fL (9.4-12.4); Monocytes # 1.1 K/mcL (0.0-1.3); Monocytes % 13.1 %; Neutrophils # 4.7 K/mcL (1.6-8.9); Platelet Count 135 K/mcL (140-400); Red Blood Count 3.35 M/mcL (3.82-4.97); Red Cell Distribution Width 17.5 % (11.5-14.5); White Blood Count 8.7 K/mcL (4.3-11.1)
[2019-05-05 05:01] LABS: Calcium 8.9 mg/dL (8.6-10.3); Potassium 3.6 mEq/L (3.5-5.1)
--- NOTE | 2019-05-05 07:42 | Internal Med Progress Note ---
<Param Viera - Last Filed: 05/05/19 09:12> Hospitalist Progress Note - Encounter Date of Encounter: 05/05/19 Time of Encounter: 07:42 - Subjective Interval History: Pt awake in bed. Breathing is not labored, she is alert. States that her dyspnea and weakness have improved significantly. Awaiting further recs from nephrology today. Possible HD today or tomorrow. - Exam Vitals: Temp Pulse Resp BP Pulse Ox 98.3 F 85 18 162/68 95 05/05/19 07:31 05/05/19 07:31 05/05/19 07:31 05/05/19 07:31 05/05/19 07:31 Exam: Gen: Awake and alert, no acute distress, well-nourished, well kempt Head: Normocephalic, atraumatic Eyes: EOMI, no scleral icterus. Conjunctiva normal. ENT: Mucous membranes moist, CV: S1-S2 present, regular at a rate , no murmurs rubs or gallops Pulm: mild wheezing present throughout, No respiratory distress, mild increased work of breathing. EXT: trace lower extremity edema appears resolved, UE edema resolved, no distal cyanosis or pallor Skin: Warm, dry, intact, no rashes or lesions noted Neuro: Cranial nerves II-XII grossly intact, no focal nurologic deficits Psych: normal mood and affect, Answers questions with intact judgement, appropriate insight, and linear thought - Assessment and Plan (1) Acute on chronic kidney failure Current Visit: Yes Status: Acute Assessment and Plan: BUN increased from 24 to 28, creatinine increased 2.14 to 2.52. Continue to follow with nephrology. Potassium up to 3.6 today. - Possible HD today. - Avoid nephrotoxins. - Maintain fluid restriction - Strict I's and O's (2) Fluid overload Current Visit: Yes Status: Acute Assessment and Plan: Labored breathing continuing to improve. Pt tolerating bipap. Fluid overload s econdary to CKD. - Responding well to HD. - Fluid restriction to 1.5 L per day. - Strict I's and O's. (3) Acute on chronic diastolic (congestive) heart failure Current Visit: Yes Status: Acute Assessment and Plan: Pt continuing to show signs of improvement. Oxygen sat 95 on RA today. - Re-assess need for bipap daily. - Continue norvasc at 5 mg to avoid edema. - O2 sat goal >92%. (4) Acute and chronic respiratory failure with hypoxia Current Visit: Yes Status: Acute Assessment and Plan: O2 saturation is stable on 3 L nasal cannula. -Nocturnal bipap study in the coming days for home bipap evaluation. -Fluid restriction to 1.5 L per day. -Plan to de-escalate bipap. -Strict I's and O's (5) HTN (hypertension) Current Visit: Yes Status: Chronic Assessment and Plan: BP still slightly elevated but pt currently stable, asymptomatic. - Continue home bp medication regimen. - Continue norvasc at 5mg to avoid edema. (6) Chronic anemia Current Visit: Yes Status: Chronic Assessment and Plan: S/P transfusion of PRBC. Hgb up from 8.8 to 9.0 today. - Continue supp iron. - Start vitamin b12 per nephrology recommendations. (7) Status post non-ST elevation myocardial infarction (NSTEMI) Current Visit: Yes Status: Acute Assessment and Plan: CP has resolved. Continue home medications. -Continue DAPT. - Time Spent with Patient Total time spent is greater than 50% in coordination of care (as documented) at patient's floor/unit and/or counseling patient: Plan of Care Discussed with: patient Internal Medicine: Result - Labs CBC & Chem 7: 05/05/19 04:20 05/05/19 04:20 Labs: Short CBC 05/05/19 Range/Units 04:20 WBC 8.7 (4.3-11.1) K/mcL Hgb 9.0 L (11.5-15.4) g/dL Hct 28.2 L (35.3-44.9) % Plt Count 135 L (140-400) K/mcL Neutrophils # 4.7 (1.6-8.9) K/mcL BMP 05/05/19 04:20 Sodium 137 Potassium 3.6 Chloride 100 Carbon Dioxide 29 BUN 28 H Creatinine 2.52 H Glucose 96 Calcium 8.9 - ABG Interpretation ABG results: PT/INR, D-dimer PT 13.1 Seconds (9.4-12.1) H 04/27/19 00:53 - Impressions Impressions Chest X-Ray 05/04/19 07:30 IMPRESSION: Stable chest with left basilar atelectasis/infiltrate. D/ / Micheal Evans MD / Micheal Evans MD Interpreting Provider: Micheal Evans MD Consult Discharge Plan - Plan Referrals: Deysi Sanchez CNP [Primary Care Provider] - 05/08/19 9:00 am () <Wing Mar - Last Filed: 05/05/19 14:13> Hospitalist Progress Note - Encounter Date of Encounter: 05/05/19 - Exam Vitals: Temp Pulse Resp BP Pulse Ox 98.5 F 77 18 128/69 93 05/05/19 10:25 05/05/19 10:25 05/05/19 10:25 05/05/19 10:25 05/05/19 10:25 - Assessment and Plan (1) Acute on chronic kidney failure Current Visit: Yes Status: Acute (2) Diabetes Current Visit: Yes Status: Chronic (3) Chest pain Current Visit: Yes Status: Resolved (4) D-dimer, elevated Current Visit: Yes Status: Acute (5) Acute and chronic respiratory failure with hypoxia Current Visit: Yes Status: Acute (6) Chronic anemia Current Visit: Yes Status: Chronic (7) Acute on chronic diastolic (congestive) heart failure Current Visit: Yes Status: Acute (8) Pulmonary edema Current Visit: Yes Status: Acute - Time Spent with Patient Total time spent is greater than 50% in coordination of care (as documented) at patient's floor/unit and/or counseling patient: Internal Medicine: Result - Labs CBC & Chem 7: 05/05/19 04:20 05/05/19 04:20 Labs: Short CBC 05/05/19 Range/Units 04:20 WBC 8.7 (4.3-11.1) K/mcL Hgb 9.0 L (11.5-15.4) g/dL Hct 28.2 L (35.3-44.9) % Plt Count 135 L (140-400) K/mcL Neutrophils # 4.7 (1.6-8.9) K/mcL BMP 05/05/19 04:20 Sodium 137 Potassium 3.6 Chloride 100 Carbon Dioxide 29 BUN 28 H Creatinine 2.52 H Glucose 96 Calcium 8.9 - ABG Interpretation ABG results: PT/INR, D-dimer PT 13.1 Seconds (9.4-12.1) H 04/27/19 00:53 - Attending Attestation I examined this patient and my medical decision-making was reviewed with the Resident Physician on 05/05/19. I agree with the documented findings, disposition and treatment plan as described except to the extent set forth below. Ms Cortes is currently admitted for acute renal failure and pulmonary edema. She remains moderate to high risk due to potential for worsening respiratory status. Ms Cortes is doing OK. She is awaiting a bath. No fever or chills. No cough. Less edema after yesterdays UF. No GI issues. Exam Alert. Comfortable. NC. Mucus membranes dry. EOMI. Heart reg and not tachy. Lungs clear. Abd soft. Edema improving. Moves all extremities. Plan: Supportive care. Further dialysis per nephrology. Pt hopeful will go home soon. <Param Viera - Last Filed: 05/05/19 09:12> (1) Acute on chronic kidney failure Qualifiers: Acute renal failure type: unspecified Chronic kidney disease stage: stage 3 (moderate) Qualified Code(s): N17.9 - Acute kidney failure, unspecified; N18.3 - Chronic kidney disease, stage 3 (moderate) (2) Fluid overload Qualifiers: Hypervolemia type: other Qualified Code(s): E87.79 - Other fluid overload (5) HTN (hypertension) Qualifiers: Hypertension type: unspecified Qualified Code(s): I10 - Essential (primary) hypertension <Wing Mar - Last Filed: 05/05/19 14:13> (1) Acute on chronic kidney failure Qualifiers: Acute renal failure type: unspecified Chronic kidney disease stage: stage 3 (moderate) Qualified Code(s): N17.9 - Acute kidney failure, unspecified; N18.3 - Chronic kidney disease, stage 3 (moderate) (2) Diabetes Qualifiers: Diabetes mellitus type: type 2 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
[2019-05-05] MEDS: Aspirin Enteric Coated 81 MG Tablet PO SCH (08:13)
[2019-05-05] MEDS: Sucralfate 1 GM TABLET PO SCH ×4 (08:13→22:26)
[2019-05-05] MEDS: Cyanocobalamin (B-12) 1,000 MCG TABLET PO SCH (08:13)
[2019-05-05] MEDS ORDERED: Furosemide 80 MG in 0.9 % Sodium Chloride 50 ML IVPB ONE (08:20)
[2019-05-05] MEDS: Isosorbide MONOnitrate (24 HR) 60 MG TAB.ER.24H PO SCH (08:23)
[2019-05-05] MEDS: Diltiazem CD (24hr) 180 MG CAPSULE PO SCH (08:23)
[2019-05-05] MEDS: hydrALAZINE 25 MG TABLET PO SCH ×3 (08:23→22:25)
[2019-05-05] MEDS: amLODIPine 5 MG TABLET PO SCH (08:24)
[2019-05-05] MEDS: Insulin LISPRO 300 UNITS/3 ML VIAL SQ SCH ×4 (08:24→22:28)
[2019-05-05] MEDS ORDERED: metOLazone 5 MG TABLET PO SCH (09:00)
--- NOTE | 2019-05-05 09:29 | Nephrology Progress Note ---
Date of Encounter: 05/05/19 Time of Encounter: 09:27 - Assessment and Plan (1) SHANTANU (acute kidney injury) Current Visit: Yes Status: Acute will monitor for renal recovery. Patient's respiratory status improved after ultrafiltration on Monday. Continue fluid restriction Continue to avoid nephrotoxins if possible We will check daily for dialysis/ultrafiltration need. No need for ultrafiltration today, however, will give another trial of high-dose intravenous Lasix and assess for renal response. (2) CKD (chronic kidney disease) stage 4, GFR 15-29 ml/min Current Visit: Yes Status: Acute (3) Chest pain Current Visit: No Status: Suspected Qualifiers: Chest pain type: chest pain due to myocardial ischemia Ischemic chest pain type: unstable angina pectoris Qualified Code(s): I20.0 - Unstable angina (4) Anemia Current Visit: No Status: Chronic Qualifiers: Anemia type: unspecified type Qualified Code(s): D64.9 - Anemia, unspecified (5) Acute on chronic diastolic (congestive) heart failure Current Visit: Yes Status: Acute Subjective Principal diagnosis: shantanu Interval history: The patient was seen. She reports that her breathing is better after UF on . The remainder of her review of systems is either negative or stable. Objective - Vital Signs Vital signs: Vital Signs Temp Pulse Resp BP Pulse Ox 05/05/19 07:31 98.3 F 85 18 162/68 95 05/05/19 04:24 16 96 05/05/19 03:11 98.3 F 85 16 162/64 96 05/04/19 23:54 98.4 F 76 19 136/58 99 05/04/19 22:20 19 99 05/04/19 22:19 23 99 05/04/19 19:47 98.3 F 86 16 158/62 93 05/04/19 16:23 99.0 F 82 18 137/71 95 05/04/19 15:23 16 92 05/04/19 12:55 97.8 F 14 124/58 05/04/19 12:35 86/50 05/04/19 12:20 99/62 05/04/19 12:05 114/60 05/04/19 11:50 142/66 05/04/19 11:35 159/68 05/04/19 11:20 151/71 05/04/19 11:05 158/66 05/04/19 10:50 161/74 05/04/19 10:35 99 F 17 179/68 Intake and Output 05/04/19 05/05/19 05/05/19 23:59 07:59 15:59 Intake Total 240 / 240 Output Total 250 / 250 Balance -250 / -10 240 / -10 Intake: Oral 240 / 240 Output: Urine 250 / 250 Other: Meal Breakfast Percent of Meal Consumed 100% Weight 74.8 kg Blood Glucose* 106 102 - General Appearance General appearance: Present: well-developed, well-nourished EENT: Present: ATNC Neck: Present: supple Cardiology: Present: regular rate Dialysis Vascular Access: Venous Catheter Neurologic: Present: alert and oriented x3 Psychiatric: Present: mood/affect appropriate - Lab 05/05/19 04:20 05/05/19 04:20 Most recent lab results 05/05/19 04:20 Calcium 8.9 Consult Discharge Plan - Plan Referrals: Deysi Sanchez CNP [Primary Care Provider] - 05/08/19 9:00 am ()
[2019-05-06] MEDS: Levalbuterol Neb 0.63 MG/3 ML IH SCH ×4 (04:09→22:46)
[2019-05-06] MEDS: *HR* Heparin 5,000 UNIT/ML VIAL SQ SCH ×3 (04:47→21:59)
[2019-05-06] MEDS: Insulin LISPRO 300 UNITS/3 ML VIAL SQ SCH ×4 (07:42→20:48)
[2019-05-06] MEDS ORDERED: 0.9 % Sodium Chloride 1,000 ML ONE (07:45)
[2019-05-06] MEDS: Cyanocobalamin (B-12) 1,000 MCG TABLET PO SCH (08:09)
[2019-05-06] MEDS: hydrALAZINE 25 MG TABLET PO SCH ×3 (08:09→23:15)
[2019-05-06] MEDS: Isosorbide MONOnitrate (24 HR) 60 MG TAB.ER.24H PO SCH (08:09)
[2019-05-06] MEDS: Sucralfate 1 GM TABLET PO SCH ×4 (08:09→21:58)
[2019-05-06] MEDS: Diltiazem CD (24hr) 180 MG CAPSULE PO SCH (08:09)
[2019-05-06] MEDS: amLODIPine 5 MG TABLET PO SCH (08:09)
[2019-05-06] MEDS: Aspirin Enteric Coated 81 MG Tablet PO SCH (08:10)
[2019-05-06 08:11] LABS: Basophils # 0.1 K/mcL (0.0-0.2); Basophils % 1.3 %; Eosinophils # 0.6 K/mcL (0.0-0.6); Eosinophils % 7.5 %; Hematocrit 29.5 % (35.3-44.9); Hemoglobin 9.5 g/dL (11.5-15.4); Immature Granulocytes % 1.1 % (0-4); Lymphocytes # 1.7 K/mcL (0.6-4.6); Lymphocytes % 22.4 %; Mean Corpuscular HGB Conc 32.2 g/dL (31.6-35.5); Mean Corpuscular Hemoglobin 27.6 pg (28.0-33.3); Mean Corpuscular Volume 85.8 fL (83.0-100.0); Mean Platelet Volume 11.1 fL (9.4-12.4); Monocytes # 1.1 K/mcL (0.0-1.3); Monocytes % 14.1 %; Neutrophils # 4.1 K/mcL (1.6-8.9); Platelet Count 149 K/mcL (140-400); Red Blood Count 3.44 M/mcL (3.82-4.97); Red Cell Distribution Width 17.8 % (11.5-14.5); Segmented Neutrophils % 53.6 %; White Blood Count 7.6 K/mcL (4.3-11.1)
[2019-05-06 08:18] LABS: Calcium 9.4 mg/dL (8.6-10.3); Potassium 3.4 mEq/L (3.5-5.1)
[2019-05-06] MEDS ORDERED: *HR* Heparin 10,000 UNIT/10 ML VIAL IV PRN (08:55)
[2019-05-06] MEDS ORDERED: 0.9 % Sodium Chloride 250 ML IVC PRN (08:55)
[2019-05-06] MEDS ORDERED: 0.9 % Sodium Chloride 1,000 ML PRIME SCH (09:00)
--- NOTE | 2019-05-06 09:48 | Internal Med Progress Note ---
<Farzad Lomas S - Last Filed: 05/06/19 15:18> Hospitalist Progress Note - Encounter Date of Encounter: 05/06/19 Time of Encounter: 09:48 - Subjective Interval History: Mrs Cortes is on hospital day 9 of an admission for NSTEMI and fluid overload secondary to CHF and CKD. She responded well to treatments with hemodialysis to treat her fluid overload, skipped dialysis yesterday, and is still doing well today. She denies any chest pain or shortness of breath, reports that she feels fine even off the oxygen, and is excited at the prospect of being discharged tomorrow. - Exam Vitals: Temp Pulse Resp BP Pulse Ox 98.2 F 81 16 172/65 94 05/06/19 07:30 05/06/19 07:30 05/06/19 07:30 05/06/19 07:30 05/06/19 07:30 Exam: Gen: Awake and alert, no acute distress, well-nourished, well kempt Head: Normocephalic, atraumatic Eyes: EOMI, no scleral icterus ENT: Mucous membranes moist , CV: S1-S2 present, regular rhythm, no tachycardia or bradycardia, no murmurs rubs or gallops Pulm: CTAB, not tachypneic, no respiratory distress, no increased work of breathing Abd: Soft, nontender to palpation, nondistended, EXT: Grossly intact motor strength in all 4 extremities, no lower extremity edema, no upper extremity edema, Skin: Warm, dry, intact, no rashes or lesions noted Neuro: Cranial nerves II-XII grossly intact, no focal nurologic deficits Psych: normal mood and affect, Answers questions with intact judgement, appropriate insight, and linear thought - Assessment and Plan (1) Fluid overload Current Visit: Yes Status: Acute Assessment and Plan: Last hemodialysis 05/03 No lower or upper extremity edema In discussion with quality management coordinator, the plan is to hold dialysis again tomorrow, wean her off her oxygen, which is currently at 2 L by nasal cannula, and do a walk test to see if she can tolerate physical activity. If she can tolerate physical activity and does not require oxygen to maintain O2 sat, she is likely okay to go home tomorrow. Maintain strict I's and O's (2) Acute on chronic kidney failure Current Visit: Yes Status: Acute Assessment and Plan: Strict I's and O's, monitor urine output with large dose of Lasix today (3) Acute and chronic respiratory failure with hypoxia Current Visit: Yes Status: Acute Assessment and Plan: Patient continues to do well off BiPAP, wean from nasal oxygen and do 6 minute walk test (4) Acute on chronic diastolic (congestive) heart failure Current Visit: Yes Status: Acute Assessment and Plan: Patient with no signs or symptoms of formula heart failure, denies shortness of breath, chest pain. Not found to have edema on exam Continue amlodipine, carvedilol, diltiazem, hydralazine, and imdur Patient to receive 80 mg Lasix today (5) HTN (hypertension) Current Visit: Yes Status: Chronic Assessment and Plan: Continue amlodipine, carvedilol, hydralazine, Imdur Continue vital sign checks (6) Chronic anemia Current Visit: Yes Status: Chronic Assessment and Plan: Continue iron supplementation (7) Status post non-ST elevation myocardial infarction (NSTEMI) Current Visit: Yes Status: Acute Assessment and Plan: Continue anticoagulation with aspirin and clopidogrel Continue to monitor for signs and symptoms of acute cardiac processes, including shortness of breath, chest pain, chest pressure or tightness, palpitations DVT Prophylaxis: SQ heparin - Summary of Assessment and Plan Summary of Assessment and Plan: Wean off oxygen 6 minute walk test 80 mg by mouth Lasix, monitor response Discharge tomorrow with outpatient nephrology follow-up - Time Spent with Patient Total time spent is greater than 50% in coordination of care (as documented) at patient's floor/unit and/or counseling patient: Internal Medicine: Result - Labs CBC & Chem 7: 05/06/19 07:40 05/06/19 07:40 Labs: Short CBC 05/06/19 Range/Units 07:40 WBC 7.6 (4.3-11.1) K/mcL Hgb 9.5 L (11.5-15.4) g/dL Hct 29.5 L (35.3-44.9) % Plt Count 149 (140-400) K/mcL Neutrophils # 4.1 (1.6-8.9) K/mcL BMP 05/06/19 07:40 Sodium 137 Potassium 3.4 L Chloride 98 Carbon Dioxide 31 H BUN 29 H Creatinine 2.64 H Glucose 113 H Calcium 9.4 - ABG Interpretation ABG results: PT/INR, D-dimer PT 13.1 Seconds (9.4-12.1) H 04/27/19 00:53 Consult Discharge Plan - Plan Referrals: Deysi Sanchez CNP [Primary Care Provider] - 05/08/19 9:00 am () <Wing Mar - Last Filed: 05/06/19 15:46> Hospitalist Progress Note - Encounter Date of Encounter: 05/06/19 - Exam Vitals: Temp Pulse Resp BP Pulse Ox 98.2 F 81 18 161/68 94 05/06/19 10:43 05/06/19 10:43 05/06/19 15:22 05/06/19 10:43 05/06/19 15:22 - Assessment and Plan (1) Acute on chronic kidney failure Current Visit: Yes Status: Acute (2) Diabetes Current Visit: Yes Status: Chronic (3) Chest pain Current Visit: Yes Status: Resolved (4) D-dimer, elevated Current Visit: Yes Status: Acute (5) Acute and chronic respiratory failure with hypoxia Current Visit: Yes Status: Acute (6) Chronic anemia Current Visit: Yes Status: Chronic (7) Acute on chronic diastolic (congestive) heart failure Current Visit: Yes Status: Acute (8) Pulmonary edema Current Visit: Yes Status: Acute - Time Spent with Patient Total time spent is greater than 50% in coordination of care (as documented) at patient's floor/unit and/or counseling patient: Internal Medicine: Result - Labs CBC & Chem 7: 05/06/19 07:40 05/06/19 07:40 Labs: Short CBC 05/06/19 Range/Units 07:40 WBC 7.6 (4.3-11.1) K/mcL Hgb 9.5 L (11.5-15.4) g/dL Hct 29.5 L (35.3-44.9) % Plt Count 149 (140-400) K/mcL Neutrophils # 4.1 (1.6-8.9) K/mcL BMP 05/06/19 07:40 Sodium 137 Potassium 3.4 L Chloride 98 Carbon Dioxide 31 H BUN 29 H Creatinine 2.64 H Glucose 113 H Calcium 9.4 - ABG Interpretation ABG results: PT/INR, D-dimer PT 13.1 Seconds (9.4-12.1) H 04/27/19 00:53 - Attending Attestation I examined this patient and my medical decision-making was reviewed with the Resident Physician on 05/06/19. I agree with the documented findings, disposition and treatment plan as described except to the extent set forth below. Ms Cortes is currently admitted for acute pulmonary edema and renal failure. She remains moderate to high risk due to potential for worsening clinical status. Ms Cortes feels OK. No fever or chills. No CP. Breathing better. Exam: Alert. Comfortable. NC. Mucus membranes moist. EOMI. Neck supple. Heart not tachy and no wheeze. No edema. Moves all extremities. No rash Plan: Recheck renal function tomorrow. Probable d/c tomorrow Do 6minute walk test <Farzad Lomas - Last Filed: 05/06/19 15:18> (1) Fluid overload Qualifiers: Hypervolemia type: other Qualified Code(s): E87.79 - Other fluid overload (2) Acute on chronic kidney failure Qualifiers: Acute renal failure type: unspecified Chronic kidney disease stage: stage 3 (moderate) Qualified Code(s): N17.9 - Acute kidney failure, unspecified; N18.3 - Chronic kidney disease, stage 3 (moderate) (5) HTN (hypertension) Qualifiers: Hypertension type: unspecified Qualified Code(s): I10 - Essential (primary) hypertension <Wing Mar - Last Filed: 05/06/19 15:46> (1) Acute on chronic kidney failure Qualifiers: Acute renal failure type: unspecified Chronic kidney disease stage: stage 3 (moderate) Qualified Code(s): N17.9 - Acute kidney failure, unspecified; N18.3 - Chronic kidney disease, stage 3 (moderate) (2) Diabetes Qualifiers: Diabetes mellitus type: type 2 Diabetes mellitus chcf insulin use: without chcf use Diabetes mellitus complication status: with kidney complications Diabetes mellitus complication detail: with chronic kidney disease Chronic kidney disease stage: stage 3 (moderate) Qualified Code(s): E11.22 - Type 2 diabetes mellitus with diabetic chronic kidney disease; N18.3 - Chronic kidney disease, stage 3 (moderate) (3) Chest pain Qualifiers: Chest pain type: other chest pain Qualified Code(s): R07.89 - Other chest pain; R07.8 - Other chest pain (8) Pulmonary edema Qualifiers: Chronicity: acute Qualified Code(s): J81.0 - Acute pulmonary edema
--- NOTE | 2019-05-06 09:55 | Nephrology Progress Note ---
Date of Encounter: 05/06/19 Time of Encounter: 09:53 - Assessment and Plan (1) SHANTANU (acute kidney injury) Current Visit: Yes Status: Acute will monitor for renal recovery. Patient's respiratory status improved after ultrafiltration on Monday. She had good response per her to furosemide on Monday. Continue fluid restriction Continue to avoid nephrotoxins if possible We will check daily for dialysis/ultrafiltration need. No need for ultrafiltration today, however, will give a trial of high dose oral Lasix and assess for renal response. If she remains stable she may be able to be discharged without dialysis/UF. Wean off supplemental oxygen. (2) CKD (chronic kidney disease) stage 4, GFR 15-29 ml/min Current Visit: Yes Status: Acute Baseline GFR in the 20s (3) Chest pain Current Visit: No Status: Suspected Qualifiers: Chest pain type: chest pain due to myocardial ischemia Ischemic chest pain type: unstable angina pectoris Qualified Code(s): I20.0 - Unstable angina (4) Anemia Current Visit: No Status: Chronic Qualifiers: Anemia type: unspecified type Qualified Code(s): D64.9 - Anemia, unspecified (5) Acute on chronic diastolic (congestive) heart failure Current Visit: Yes Status: Acute Subjective Principal diagnosis: shantanu Interval history: The patient was seen. She reports that her breathing is back to baseline. She also reports that she had significant urine output after receiving furosemide yesterday although this is not recorded in the charting. The remainder of her review of systems is either negative or stable. Objective - Vital Signs Vital signs: Vital Signs Temp Pulse Resp BP Pulse Ox 05/06/19 07:30 98.2 F 81 16 172/65 94 05/06/19 04:13 98.4 F 80 18 165/71 94 05/06/19 04:11 16 97 05/05/19 23:28 98.6 F 70 18 142/56 95 05/05/19 22:01 16 99 05/05/19 19:10 98.9 F 79 18 137/66 92 05/05/19 15:58 18 93 05/05/19 15:16 98.4 F 80 16 135/59 90 05/05/19 10:43 18 90 05/05/19 10:25 98.5 F 77 18 128/69 93 Intake and Output 05/05/19 05/06/19 05/06/19 23:59 07:59 15:59 Intake Total 240 / 240 Output Total 300 / 300 Balance -60 / -60 Intake: Oral 240 / 240 Output: Urine 300 / 300 Other: Meal Breakfast Percent of Meal Consumed 25% # Voids 1 Weight 74.2 kg Blood Glucose* 131 105 - General Appearance General appearance: Present: well-developed, well-nourished EENT: Present: ATNC Cardiology: Present: no edema, regular rate Integumentary: Present: warm and dry Neurologic: Present: alert and oriented x3 Musculoskeletal: Present: no cyanosis Psychiatric: Present: mood/affect appropriate - Lab 05/06/19 07:40 05/06/19 07:40 Most recent lab results 05/06/19 07:40 Calcium 9.4 Consult Discharge Plan - Plan Referrals: Deysi Sanchez CNP [Primary Care Provider] - 05/08/19 9:00 am ()
[2019-05-06] MEDS ORDERED: metOLazone 2.5 MG TABLET PO SCH (10:00)
[2019-05-06] MEDS: Furosemide 40 MG TABLET PO SCH (11:59)
[2019-05-07] MEDS: Levalbuterol Neb 0.63 MG/3 ML IH SCH ×3 (04:04→14:55)
[2019-05-07] MEDS: *HR* Heparin 5,000 UNIT/ML VIAL SQ SCH ×2 (05:43→15:30)
[2019-05-07 06:12] LABS: Basophils # 0.1 K/mcL (0.0-0.2); Eosinophils # 0.6 K/mcL (0.0-0.6); Hemoglobin 9.3 g/dL (11.5-15.4); Immature Granulocytes % 0.7 % (0-4); Lymphocytes # 1.9 K/mcL (0.6-4.6); Lymphocytes % 22.2 %; Mean Corpuscular HGB Conc 32.1 g/dL (31.6-35.5); Mean Corpuscular Hemoglobin 26.9 pg (28.0-33.3); Mean Corpuscular Volume 83.8 fL (83.0-100.0); Monocytes # 1.1 K/mcL (0.0-1.3); Monocytes % 13.1 %; Neutrophils # 4.7 K/mcL (1.6-8.9); Platelet Count 136 K/mcL (140-400); Red Blood Count 3.46 M/mcL (3.82-4.97); Red Cell Distribution Width 17.8 % (11.5-14.5); White Blood Count 8.3 K/mcL (4.3-11.1)
[2019-05-07 06:34] LABS: Calcium 9.6 mg/dL (8.6-10.3); Potassium 3.1 mEq/L (3.5-5.1)
[2019-05-07] MEDS ORDERED: Potassium Chloride Elixir 20 MEQ/15 ML UDC PO ONE (07:35)
--- NOTE | 2019-05-07 07:37 | Internal Med Progress Note ---
Hospitalist Progress Note - Encounter Date of Encounter: 05/07/19 Time of Encounter: 07:36 - Exam Vitals: Temp Pulse Resp BP Pulse Ox 98.1 F 77 18 181/68 91 05/07/19 07:05/07/19 07:26 05/07/19 07:26 05/07/19 07:05/07/19 07:26 Exam: Gen: Awake and alert, no acute distress, well-nourished, well kempt Head: Normocephalic, atraumatic Eyes: EOMI, no scleral icterus ENT: Mucous membranes moist , CV: S1-S2 present, regular rhythm, no tachycardia or bradycardia, no murmurs rubs or gallops Pulm: CTAB, not tachypneic, no respiratory distress, no increased work of breathing Abd: Soft, nontender to palpation, nondistended, EXT: Grossly intact motor strength in all 4 extremities, no lower extremity edema, no upper extremity edema, Skin: Warm, dry, intact, no rashes or lesions noted Neuro: Cranial nerves II-XII grossly intact, no focal nurologic deficits Psych: normal mood and affect, Answers questions with intact judgement, appropriate insight, and linear thought - Assessment and Plan (1) Acute on chronic kidney failure Current Visit: Yes Status: Acute (2) Fluid overload Current Visit: Yes Status: Acute (3) Acute on chronic diastolic (congestive) heart failure Current Visit: Yes Status: Acute (4) Acute and chronic respiratory failure with hypoxia Current Visit: Yes Status: Acute (5) HTN (hypertension) Current Visit: Yes Status: Chronic (6) Chronic anemia Current Visit: Yes Status: Chronic (7) Status post non-ST elevation myocardial infarction (NSTEMI) Current Visit: Yes Status: Acute - Time Spent with Patient Total time spent is greater than 50% in coordination of care (as documented) at patient's floor/unit and/or counseling patient: Internal Medicine: Result - Labs CBC & Chem 7: 05/07/19 05:48 05/07/19 05:48 Labs: Short CBC 05/06/19 05/07/19 Range/Units 07:40 05:48 WBC 7.6 8.3 (4.3-11.1) K/mcL Hgb 9.5 L 9.3 L (11.5-15.4) g/dL Hct 29.5 L 29.0 L (35.3-44.9) % Plt Count 149 136 L (140-400) K/mcL Neutrophils # 4.1 4.7 (1.6-8.9) K/mcL BMP 05/06/19 05/07/19 07:40 05:48 Sodium 137 137 Potassium 3.4 L 3.1 L Chloride 98 96 L Carbon Dioxide 31 H 29 BUN 29 H 32 H Creatinine 2.64 H 2.64 H Glucose 113 H 103 Calcium 9.4 9.6 - ABG Interpretation ABG results: PT/INR, D-dimer PT 13.1 Seconds (9.4-12.1) H 04/27/19 00:53 Consult Discharge Plan - Plan Referrals: Deysi Sanchez CNP [Primary Care Provider] - 05/08/19 9:00 am () (1) Acute on chronic kidney failure Qualifiers: Acute renal failure type: unspecified Chronic kidney disease stage: stage 3 (moderate) Qualified Code(s): N17.9 - Acute kidney failure, unspecified; N18.3 - Chronic kidney disease, stage 3 (moderate) (2) Fluid overload Qualifiers: Hypervolemia type: other Qualified Code(s): E87.79 - Other fluid overload (5) HTN (hypertension) Qualifiers: Hypertension type: unspecified Qualified Code(s): I10 - Essential (primary) h ypertension
[2019-05-07] MEDS: Diltiazem CD (24hr) 180 MG CAPSULE PO SCH (08:11)
[2019-05-07] MEDS: amLODIPine 5 MG TABLET PO SCH (08:12)
[2019-05-07] MEDS: Aspirin Enteric Coated 81 MG Tablet PO SCH (08:12)
[2019-05-07] MEDS: Isosorbide MONOnitrate (24 HR) 60 MG TAB.ER.24H PO SCH (08:13)
[2019-05-07] MEDS: Sucralfate 1 GM TABLET PO SCH ×3 (08:13→15:30)
[2019-05-07] MEDS: Cyanocobalamin (B-12) 1,000 MCG TABLET PO SCH (08:14)
[2019-05-07] MEDS: hydrALAZINE 25 MG TABLET PO SCH ×2 (08:15→15:29)
[2019-05-07] MEDS: Furosemide 40 MG TABLET PO SCH (08:16)
[2019-05-07] MEDS: Insulin LISPRO 300 UNITS/3 ML VIAL SQ SCH ×3 (08:22→16:52)
[2019-05-07] MEDS ORDERED: Furosemide 40 MG TABLET PO SCH (09:00)
--- NOTE | 2019-05-07 09:05 | Discharge Summary ---
<Wing Mar - Last Filed: 05/07/19 13:35> Date of Encounter: 05/07/19 - Discharge Diagnosis (1) Acute on chronic kidney failure Status: Acute Qualifiers: Acute renal failure type: unspecified Chronic kidney disease stage: stage 3 (moderate) Qualified Code(s): N17.9 - Acute kidney failure, unspecified; N18.3 - Chronic kidney disease, stage 3 (moderate) (2) Diabetes Status: Chronic Qualifiers: Diabetes mellitus type: type 2 Diabetes mellitus longterm insulin use: without watcher [employer] long goods use Diabetes mellitus complication status: with kidney complications Diabetes mellitus complication detail: with chronic kidney disease Chronic kidney disease stage: stage 3 (moderate) Qualified Code(s): E11.22 - Type 2 diabetes mellitus with diabetic chronic kidney disease; N18.3 - Chronic kidney disease, stage 3 (moderate) (3) Chest pain Status: Resolved Qualifiers: Chest pain type: other chest pain Qualified Code(s): R07.89 - Other chest pain; R07.8 - Other chest pain (4) D-dimer, elevated Status: Acute (5) Acute and chronic respiratory failure with hypoxia Status: Acute (6) Chronic anemia Status: Chronic (7) Acute on chronic diastolic (congestive) heart failure Status: Acute (8) Pulmonary edema Status: Acute Qualifiers: Chronicity: acute Qualified Code(s): J81.0 - Acute pulmonary edema Hospital course: Ms. Cortes is a 83 year old female - Time Spent with Patient Total time spent providing and/or coordinating discharge services: - Discharge Medications Prescriptions: New Cyanocobalamin (B-12) [Vitamin B12] 1,000 mcg PO DAILY 30 Days #30 tablet metOLazone [Zaroxolyn] 2.5 mg PO MOWEFR@0830 30 Days #10 tablet Continued Alendronate Sodium [Fosamax] 70 mg PO CALIXTO Amitriptyline [Elavil] 25 mg PO HS Ezetimibe 10 mg PO DAILY Levothyroxine [Synthroid] 112 mcg PO QAM Sucralfate [Carafate] 1 gm PO QID 30 Days #120 oral.susp Clopidogrel [Plavix] 75 mg PO DAILY #90 tablet Ferrous Sulfate 325 mg PO BIDWM #60 tablet Diltiazem CD (24hr) [Cardizem CD] 360 mg PO DAILY #120 cap.er.24h Atorvastatin [Lipitor] 80 mg PO HS #90 tablet Carvedilol [Coreg] 25 mg PO BIDWM #120 tablet Isosorbide MONOnitrate (24 HR) [Imdur] 120 mg PO DAILY #120 tab.er.24h amLODIPine [Norvasc] 10 mg PO DAILY #60 tablet hydrALAZINE [HydrALAZINE] 100 mg PO Q8HR #120 tablet Aspirin [Lo-Dose Aspirin EC] 81 mg PO DAILY #60 tablet. Docusate [Colace] 100 mg PO BID PRN #60 capsule PRN Reason: Constipation Omeprazole [PriLOSEC] 40 mg PO BIDAC #120 capsule. Furosemide [Lasix] 40 mg PO DAILY #60 tab Insulin LISPRO [HumaLOG] 0 units SQ TIDAC vial Insulin LISPRO [HumaLOG] 0 units SQ HS vial Polyethylene Glycol 3350 [MiraLAX] 17 gm PO DAILY PRN powd.pack PRN Reason: Constipation hydrOXYzine pamoate [Vistaril] 25 mg PO Q8HR PRN #10 capsule PRN Reason: Anxiety Acetaminophen [Tylenol] 650 mg PO Q4HR PRN tablet PRN Reason: Analgesia Discontinued Sulfamethoxazole/Trimeth DS [Bactrim Ds] 0.5 each PO BID 5 Days #5 tablet Home Medications: Alendronate Sodium [Fosamax] 70 mg PO CALIXTO 04/06/19 [History] Amitriptyline [Elavil] 25 mg PO HS 04/06/19 [History] Ezetimibe 10 mg PO DAILY 04/06/19 [History] Levothyroxine [Synthroid] 112 mcg PO QAM 04/06/19 [History] Sucralfate [Carafate] 1 gm PO QID 30 Days #120 oral.susp 04/12/19 [Rx] Aspirin [Lo-Dose Aspirin EC] 81 mg PO DAILY #60 tablet. 04/23/19 [Rx] Atorvastatin [Lipitor] 80 mg PO HS #90 tablet 04/23/19 [Rx] Carvedilol [Coreg] 25 mg PO BIDWM #120 tablet 04/23/19 [Rx] Clopidogrel [Plavix] 75 mg PO DAILY #90 tablet 04/23/19 [Rx] Diltiazem CD (24hr) [Cardizem CD] 360 mg PO DAILY #120 cap.er.24h 04/23/19 [Rx] Docusate [Colace] 100 mg PO BID PRN #60 capsule 04/23/19 [Rx] Ferrous Sulfate 325 mg PO BIDWM #60 tablet 04/23/19 [Rx] Furosemide [Lasix] 40 mg PO DAILY #60 tab 04/23/19 [Rx] Isosorbide MONOnitrate (24 HR) [Imdur] 120 mg PO DAILY #120 tab.er.24h 04/23/19 [Rx] Omeprazole [PriLOSEC] 40 mg PO BIDAC #120 capsule.dr 04/23/19 [Rx] amLODIPine [Norvasc] 10 mg PO DAILY #60 tablet 04/23/19 [Rx] hydrALAZINE [HydrALAZINE] 100 mg PO Q8HR #120 tablet 04/23/19 [Rx] Acetaminophen [Tylenol] 650 mg PO Q4HR PRN tablet 04/26/19 [Rx] Insulin LISPRO [HumaLOG] 0 units SQ HS vial 04/26/19 [Rx] Insulin LISPRO [HumaLOG] 0 units SQ TIDAC vial 04/26/19 [Rx] Polyethylene Glycol 3350 [MiraLAX] 17 gm PO DAILY PRN powd.pack 04/26/19 [Rx] hydrOXYzine pamoate [Vistaril] 25 mg PO Q8HR PRN #10 capsule 04/26/19 [Rx] Cyanocobalamin (B-12) [Vitamin B12] 1,000 mcg PO DAILY 30 Days #30 tablet 05/07/19 [Rx] metOLazone [Zaroxolyn] 2.5 mg PO MOWEFR@0830 30 Days #10 tablet 05/07/19 [Rx] Allergies/Adverse Reactions: 3 Allergy/AdvReac Type Severity Reaction Status Date / Time codeine Allergy Nausea, Verified 04/27/19 13:50 Vomiting lisinopril Allergy Cough Verified 04/27/19 13:50 Penicillins Allergy Hives Verified 04/27/19 13:50 tramadol Allergy Joint Pain Verified 04/27/19 13:50 Date of admission: 04/27/19 00:04 Primary care physician: Deysi Sanchez CNP Consults: 04/27/19 01:08 Consult to Resource Manager Forester [CONS] Routine Reason for SW Consult: possible need for rehab on discharge 04/28/19 07:51 Consult to Nephrology [CONS] Routine Consulting Provider: Kidney Ondina/JANUARY/ADAMS/AMELIA Reason for Consult: shantanu on ckd, sob w pulm vasc congestion/effusions, consult for assistance with shantanu on ckd management and any ability to diurese, thank you Call Completed: Yes 04/28/19 16:51 Consult to Occupational Therapy [CONS] Routine Comment: Evaluate, develop and implement POC Reason for Consult: Evaluate, develop and implement POC Does patient have active BEDREST order?: No Is patient medically & hemodynamically stable?: Yes Patient assessed for mobility or mobilized this visit?: Yes Consult to Physical Therapy [CONS] Routine Comment: Evaluate, develop and implement POC Reason for Consult: Evaluate, develop and implement POC. was just discharged from [facility] Does patient have active BEDREST order?: No Is patient medically & hemodynamically stable?: Yes Patient assessed for mobility or mobilized this visit?: Yes 04/29/19 13:50 Consult to Respiratory Therapy [CONS] Routine Reason for Consult: shortness of breath possible cpap/bipap Time Notified: 13:50 Call Completed: No 04/30/19 14:44 Consult to Interventional Radiology [CONS] Routine Consulting Provider: Radiology Interventional Cols Reason for Consult: Please place curved temp line for HD. Thanks Time Notified: 14:44 Call Completed: Yes 04/30/19 15:30 Consult to Dialysis [CONS] ONCE 05/01/19 09:45 Consult to Dialysis [CONS] ONCE 05/02/19 08:47 Consult to Nurse Navigator [CONS] Routine Comment: CHF 05/02/19 09:15 Consult to Dialysis [CONS] ONCE 05/04/19 09:00 Consult to Dialysis [CONS] ONCE 05/06/19 09:00 Consult to Dialysis [CONS] ONCE - Constitutional Vitals: Temp Pulse Resp BP Pulse Ox 98.1 F 68 18 133/71 91 05/07/19 12:08 05/07/19 12:08 05/07/19 12:08 05/07/19 12:08 05/07/19 12:08 - Patient Status Disposition: Home, Self-Care Condition: Good - Discharge Instructions Instructions: Heart Failure (DC), Acute Respiratory Distress Syndrome (DC), Chronic Hypertension (DC), Anemia (GEN) Follow Up With: Deysi Sanchez CNP [Primary Care Provider] - 05/14/19 11:00 am (Please follow up as schedule) Farhana Maurice MD [Partnered Physician] - 06/04/19 3:45 pm (Please follow up as schedule...) - Attending Attestation I examined this patient and my medical decision-making was reviewed with the Resident Physician on 05/07/19. I agree with the documented findings, disposition and treatment plan as described except to the extent set forth below. Mrs Foster has been admitted for volume overload. She had dialysis with improvement. Today she is breathing better and dialysis has been stopped. She is ready for discharge home. Exam Alert. Comfortable Mucus membranes dry Heart not tachy. No wheeze Abd soft Plan D/C home Pt has qualified for oxygen at 1 liter/min with exertion D/C time 32min Addend: This patient did not have a new NSTEMI this admission nor any new treatment for prior NSTEMI or new symptoms. <Param Viera - Last Filed: 05/07/19 14:46> - NOTES TO OUTPATIENT PROVIDER Notes to Outpatient Provider: Mrs. Cortes presented to [facility] for acute chest pain, dyspnea secondary to SHANTANU on CKD resulting in fluid overload exacerbated by her HFpEF. Cardiac w/u was negative. She was seen by nephrology and diuresed with albumin and lasix and HD with improvement in her symptomatology. It is recommended that she follow up with Dr. Griffin at [facility] in 4 weeks. Home lasix, metolozone, 2L fluid restriction, 2 gram sodium restriction. Date of Encounter: 05/07/19 Time of Encounter: 09:04 - Discharge Diagnosis (1) Acute on chronic kidney failure Priority: Primary Status: Acute Assessment and Plan: Baseline GFR in the 20s. GFR is 17 today. Per nephrology: D/C Temp HD line, Metolozone 2.5 mg PO now and at discharge, 2L fluid rest, 2g sodium restriction, - F/U with Dr. Griffin in 4 weeks at [facility]. Qualifiers: Acute renal failure type: unspecified Chronic kidney disease stage: stage 3 (moderate) Qualified Code(s): N17.9 - Acute kidney failure, unspecified; N18.3 - Chronic kidney disease, stage 3 (moderate) (2) Fluid overload Priority: Secondary Status: Resolved Assessment and Plan: Labored breathing resolved. Lungs relatively CTAB. Bipap de-escalated. - Salt and fluid restriction per nephrology. - F/U with Nephrology in 4 weeks. Qualifiers: Hypervolemia type: other Qualified Code(s): E87.79 - Other fluid overload (3) Acute on chronic diastolic (congestive) heart failure Priority: Secondary Status: Chronic Assessment and Plan: Symptoms of CHF and pulm edema resolved. Pt ready for discharge. Recommend to continue home norvasc at 10 mg. (4) Acute and chronic respiratory failure with hypoxia Priority: Secondary Status: Resolved Assessment and Plan: Goal O2 saturation >92%. Pt failed 6 minute walk test and needed 1 L of O2 to maintain saturation >88%. - Home oxygen, 1 liter. - Nocturnal assessment for home bipap. (5) HTN (hypertension) Priority: Secondary Status: Chronic Assessment and Plan: Norvasc was reduced to 5 mg during hospital stay secondary to possible edema. BP stable throughout stay. - Norvasc 10 mg at discharge, monitor for fluid retention. - PCP follow up. Qualifiers: Hypertension type: unspecified Qualified Code(s): I10 - Essential (primary) hypertension (6) Chronic anemia Priority: Secondary Status: Chronic Assessment and Plan: Patient was treated and responded well to 1 unit PRBC for a Hgb of 8. - Recommend continuation of iron supp, vit b12, folate. - F/U with nephrology and PCP. Hospital course: Ms. Cortes is a 83 year old female with a PMHx of CKD stage 3, CHF, CAD, HLD, HTN who presented to [facility] on 04/27/19 for progressive renal insufficiency and elevated d-dimer following cardiac rehabilitation visit at [facility]/p [facility] on 04/17/19. She was started on Heparin drip prior to transfer to [facility]. At initial evaluation she presented with acute chest pain, sob that improved with nitro drip. Cardiology was consulted and V/Q scan ordered which demonstrated low probability of PE with underlying CHF. Troponin was 0.09 at [facility], increasing to 0.11 upon arival. CXR without acute changes. Echo revealed EF of 60%. BUN 42, creatinine 2.81 at admission. Max BUN and creatinine were 61 and 3.34 respectively. Patient was diuresed with improvement in her dyspnea and chest pain. It was determined that her symptomatology was related to fluid overload secondary to SHANTANU on CKD with acute on chronic HFpEF. UA revealed significant proteinuria. Nephrology was consulted for further evaluation. Nephrology recommended fluid restriction, albumin and lasix dosing for diuresis, and reduction of norvasc to 5 mg to reduce edema. Oxygen 2L NC and Bipap given for persistent dyspnea and desaturation secondary to pulmonary edema. Patients symptoms improved slightly, however it was recommended that HD be performed for continued hypoxia, dyspnea, and renal insufficiency. Pt improved significantly with this plan over the proceeding 5 days of stay. Bipap was de-escalated, HD d/c at this time and patient reported drastic improvement in dyspnea. Pt failed 6 minute walk test and needed 1L of oxygen to maintain sat >88. Discharge discussed with: patient - Time Spent with Patient Total time spent providing and/or coordinating discharge services: Time spent: Greater than 30 minutes Date of admission: 04/27/19 00:04 Primary care physician: Deysi Sanchez CNP Consults: 04/27/19 01:08 Consult to Resource Manager Forester [CONS] Routine Reason for SW Consult: possible need for rehab on discharge 04/28/19 07:51 Consult to Nephrology [CONS] Routine Consulting Provider: Kidney Ondina/JANUARY/ADAMS/AMELIA Reason for Consult: shantanu on ckd, sob w pulm vasc congestion/effusions, consult for assistance with shantanu on ckd management and any ability to diurese, thank you Call Completed: Yes 04/28/19 16:51 Consult to Occupational Therapy [CONS] Routine Comment: Evaluate, develop and implement POC Reason for Consult: Evaluate, develop and implement POC Does patient have active BEDREST order?: No Is patient medically & hemodynamically stable?: Yes Patient assessed for mobility or mobilized this visit?: Yes Consult to Physical Therapy [CONS] Routine Comment: Evaluate, develop and implement POC Reason for Consult: Evaluate, develop and implement POC. was just discharged from [facility] Does patient have active BEDREST order?: No Is patient medically & hemodynamically stable?: Yes Patient assessed for mobility or mobilized this visit?: Yes 04/29/19 13:50 Consult to Respiratory Therapy [CONS] Routine Reason for Consult: shortness of breath possible cpap/bipap Time Notified: 13:50 Call Completed: No 04/30/19 14:44 Consult to Interventional Radiology [CONS] Routine Consulting Provider: Radiology Interventional Cols Reason for Consult: Please place curved temp line for HD. Thanks Time Notified: 14:44 Call Completed: Yes 04/30/19 15:30 Consult to Dialysis [CONS] ONCE 05/01/19 09:45 Consult to Dialysis [CONS] ONCE 05/02/19 08:47 Consult to Nurse Navigator [CONS] Routine Comment: CHF 05/02/19 09:15 Consult to Dialysis [CONS] ONCE 05/04/19 09:00 Consult to Dialysis [CONS] ONCE 05/06/19 09:00 Consult to Dialysis [CONS] ONCE Discharging clinician: Param Viera Anticipated date of discharge: 05/07/19 - Constitutional Vitals: Temp Pulse Resp BP Pulse Ox 98.1 F 77 18 181/68 91 05/07/19 07:26 05/07/19 07:26 05/07/19 07:26 05/07/19 07:26 05/07/19 07:26 General appearance: Present: cooperative, mild distress, A&O X 3, pleasant, answers questions appropriately Exam: see below - Head Head exam: Present: atraumatic, normocephalic - Eye Eye exam: Present: EOMI, conjuntiva pink. Absent: scleral icterus Pupils: Present: PERRL - ENT ENT exam: Present: mucous membranes moist, normal oropharynx - Neck Neck exam general surgery: Present: normal inspection, supple. Absent: tenderness - Respiratory Respiratory exam: Present: wheezes (occasional mild wheezing). Absent: rales, respiratory distress, rhonchi, stridor - Cardiovascular Cardiovascular exam: Present: RRR, +S1, +S2. Absent: diastolic murmur, JVD, systolic murmur - GI/Abdominal GI/Abdominal exam: Present: normal bowel sounds, soft. Absent: distended, guarding, tenderness - Extremities Exam Extremities exam: Present: warm. Absent: cyanotic, joint swelling, pedal edema, tenderness - Neurological Exam Neurological exam: Present: alert, CN II-XII intact, oriented X3, no focal deficits - Psychiatric Psychiatric exam: Present: normal mood - Skin Skin exam: Present: dry, intact, normal color. Absent: rash - Patient Status Functional capacity at discharge: uses cane/walker Overall status at discharge: patient is progressing back to baseline
--- NOTE | 2019-05-07 09:34 | Nephrology Progress Note ---
Date of Encounter: 05/07/19 Time of Encounter: 09:32 - Assessment and Plan (1) CKD (chronic kidney disease) stage 4, GFR 15-29 ml/min Current Visit: Yes Status: Acute Baseline GFR in the 20s. GFR is 17 today, near baseline. Obtain standing weight before discharge, inform patient what it is. D/c Temp HD line. Metolozone 2.5 mg PO Monday, Monday, Monday ordered for today. Strict 2 liter fluid restriction. 2 gram sodium diet restriction. Educated patient about the importance of adhering to dietary recommendations. Continue to avoid nephrotoxins and renal dose all medications. May go home on PO Lasix at 60 mg as well as Metolozone. BMP in 7 days. f/U with Dr. Griffin in 4 weeks. (2) Chest pain Current Visit: No Status: Suspected Per primary, +d-dimer noted. resolved. Qualifiers: Chest pain type: chest pain due to myocardial ischemia Ischemic chest pain type: unstable angina pectoris Qualified Code(s): I20.0 - Unstable angina (3) Anemia Current Visit: No Status: Chronic Hgb noted. s/p transfusion pRBCs, will monitor Continue supplemental iron. We will start supplemental vitamin B12. Qualifiers: Anemia type: unspecified type Qualified Code(s): D64.9 - Anemia, unspecified (4) Acute on chronic diastolic (congestive) heart failure Current Visit: Yes Status: Acute Improving with UF as above Continue strict I/Os Continue fluid restriction (5) SHANTANU (acute kidney injury) Current Visit: Yes Status: Acute Has shown signs of recovery. See above. Subjective Principal diagnosis: shantanu Interval history: Seen and examined is doing well. Denies chest pain or shortness of breath. Denies nausea, vomiting or diarrhea. Objective - Vital Signs Vital signs: Vital Signs Temp Pulse Resp BP Pulse Ox 05/07/19 07:26 98.1 F 77 18 181/68 91 05/07/19 04:05 18 179/64 92 05/07/19 03:39 98.3 F 77 179/64 90 05/06/19 23:56 98.4 F 68 162/64 90 05/06/19 22:46 19 93 05/06/19 18:51 98.0 F 71 164/67 91 05/06/19 17:52 93 05/06/19 16:09 98.2 F 77 17 145/66 91 05/06/19 15:22 18 94 05/06/19 10:43 98.2 F 81 16 161/68 93 05/06/19 10:34 18 94 Intake and Output 05/06/19 05/07/19 05/07/19 23:59 07:59 15:59 Intake Total 560 / 800 Output Total 200 / 1100 Balance 360 / -300 Intake: Oral 560 / 800 Output: Urine 200 / 1100 Other: Meal Dinner Percent of Meal Consumed 100% # Voids 1 Weight 73.7 kg Blood Glucose* 112 108 Patient Weight 05/07/19 23:59 Weight 73.7 kg - General Appearance General appearance: Present: well-developed, well-nourished EENT: Present: ATNC, hearing intact, vision intact Neck: Present: supple Respiratory: Present: clear Cardiology: Present: edema (trace bilat lower extremity edema.), normal S1, normal S2 Dialysis Vascular Access: Venous Catheter (DRSG c/D/I) Gastrointestinal: Present: normoactive bowel sounds, no tenderness, no guarding Integumentary: Present: no rash, warm and dry Neurologic: Present: alert and oriented x3 Musculoskeletal: Present: no deformities, no erythema Psychiatric: Present: mood/affect appropriate, cooperative - Lab 05/07/19 05:48 05/07/19 05:48 Most recent lab results 05/07/19 05:48 Calcium 9.6 Consult Discharge Plan - Plan Referrals: Deysi Sanchez CNP [Primary Care Provider] - 05/08/19 9:00 am ()
[2019-05-07 15:51] VITALS: BP 176/71
[2019-05-08] MEDS ORDERED: metOLazone 2.5 MG TABLET PO SCH ×2 (08:30→09:28)
== END 2019-05-07 18:42 | disposition home or self-care (01) | DRG 682 ==
LOC: ICNU → SUATTDRO 04-27 00:04 → 2NNU 04-27 15:46 → 2ANU 05-03 16:32
PROVIDERS: ADMIT Internal Medicine Nephrology; ATTEND Internal Medicine

== ENCOUNTER 2019-06-17 17:40 | Inpatient (IN) ==
[2019-06-17 18:44] LABS: Basophils # 0.1 K/mcL (0.0-0.2); Basophils % 1.4 %; Eosinophils # 1.2 K/mcL (0.0-0.6); Eosinophils % 12.4 %; Hematocrit 28.2 % (35.3-44.9); Hemoglobin 8.8 g/dL (11.5-15.4); Immature Granulocytes % 0.3 % (0-4); Lymphocytes # 2.3 K/mcL (0.6-4.6); Lymphocytes % 24.8 %; Mean Corpuscular HGB Conc 31.2 g/dL (31.6-35.5); Mean Corpuscular Hemoglobin 26.3 pg (28.0-33.3); Mean Corpuscular Volume 84.2 fL (83.0-100.0); Mean Platelet Volume 11.1 fL (9.4-12.4); Monocytes # 1.2 K/mcL (0.0-1.3); Monocytes % 12.6 %; Neutrophils # 4.6 K/mcL (1.6-8.9); Platelet Count 279 K/mcL (140-400); Red Blood Count 3.35 M/mcL (3.82-4.97); Red Cell Distribution Width 17.2 % (11.5-14.5); Segmented Neutrophils % 48.5 %; White Blood Count 9.4 K/mcL (4.3-11.1)
[2019-06-17 18:55] LABS: VBG HCO3 22 mEq/L (21-27); VBG PCO2 33 mmHg (41-51); VBG PH 7.43 pH Units (7.32-7.42); VBG PO2 161 mmHg (25-50)
[2019-06-17 19:21] LABS: Calcium 9.5 mg/dL (8.6-10.3); Potassium 3.5 mEq/L (3.5-5.1); Troponin I 0.03 ng/mL (< 0.04)
[2019-06-17] MEDS ORDERED: Furosemide 40 MG/4 ML VIAL IVP ONE (20:36)
[2019-06-17] MEDS ORDERED: Acetaminophen 325 MG TABLET PO PRN (21:13)
[2019-06-18 05:35] LABS: Calcium 9.1 mg/dL (8.6-10.3); Phosphorous 5.3 mg/dL (2.7-4.5); Potassium 3.2 mEq/L (3.5-5.1)
[2019-06-18] MEDS: *HR* Heparin 5,000 UNIT/ML VIAL SQ SCH ×2 (05:41→17:21)
[2019-06-18] MEDS ORDERED: Potassium Chloride Elixir 20 MEQ/15 ML UDC PO ONE (06:05)
[2019-06-18] MEDS: amLODIPine 5 MG TABLET PO SCH (08:23)
[2019-06-18] MEDS: Aspirin Enteric Coated 81 MG Tablet PO SCH (08:23)
[2019-06-18] MEDS: Sucralfate 1 GM TABLET PO SCH ×4 (08:24→21:19)
[2019-06-18] MEDS: Isosorbide MONOnitrate (24 HR) 60 MG TAB.ER.24H PO SCH (08:24)
[2019-06-18] MEDS ORDERED: amLODIPine 5 MG TABLET PO SCH (09:00)
[2019-06-18] MEDS ORDERED: NON-FORMULARY MEDICATION 1 EACH EACH (Ezetimibe [Zetia] 10 MG) PO SCH (09:00)
[2019-06-19 05:19] LABS: Basophils # 0.1 K/mcL (0.0-0.2); Basophils % 1.2 %; Eosinophils # 1.1 K/mcL (0.0-0.6); Eosinophils % 12.6 %; Hematocrit 28.5 % (35.3-44.9); Hemoglobin 8.5 g/dL (11.5-15.4); Immature Granulocytes % 0.3 % (0-4); Lymphocytes # 2.3 K/mcL (0.6-4.6); Lymphocytes % 25.8 %; Mean Corpuscular HGB Conc 29.8 g/dL (31.6-35.5); Mean Corpuscular Hemoglobin 25.4 pg (28.0-33.3); Mean Corpuscular Volume 85.1 fL (83.0-100.0); Mean Platelet Volume 11.2 fL (9.4-12.4); Monocytes # 1.2 K/mcL (0.0-1.3); Neutrophils # 4.2 K/mcL (1.6-8.9); Platelet Count 263 K/mcL (140-400); Red Blood Count 3.35 M/mcL (3.82-4.97); Red Cell Distribution Width 17.3 % (11.5-14.5); Segmented Neutrophils % 47.1 %; White Blood Count 8.9 K/mcL (4.3-11.1)
[2019-06-19 05:41] LABS: Calcium 9.3 mg/dL (8.6-10.3); Potassium 4.2 mEq/L (3.5-5.1)
[2019-06-19] MEDS: *HR* Heparin 5,000 UNIT/ML VIAL SQ SCH ×2 (05:46→17:19)
[2019-06-19] MEDS: Isosorbide MONOnitrate (24 HR) 60 MG TAB.ER.24H PO SCH (09:45)
[2019-06-19] MEDS: amLODIPine 5 MG TABLET PO SCH (09:46)
[2019-06-19] MEDS: Aspirin Enteric Coated 81 MG Tablet PO SCH (09:46)
[2019-06-19] MEDS: Sucralfate 1 GM TABLET PO SCH ×4 (09:46→21:51)
[2019-06-19] MEDS ORDERED: 0.9 % Sodium Chloride 1,000 ML IVC SCH (13:30)
[2019-06-19] MEDS ORDERED: 0.9 % Sodium Chloride 500 ML IVC SCH (18:15)
[2019-06-20 05:23] LABS: Calcium 8.9 mg/dL (8.6-10.3); Potassium 3.8 mEq/L (3.5-5.1)
[2019-06-20 05:37] LABS: Complement C3 131 mg/dL (87-200); Thyroid Stimulating Hormone 4.209 mcIU/mL (0.340-5.600)
[2019-06-20] MEDS: *HR* Heparin 5,000 UNIT/ML VIAL SQ SCH ×2 (05:50→17:13)
[2019-06-20] MEDS: amLODIPine 5 MG TABLET PO SCH (08:32)
[2019-06-20] MEDS: Aspirin Enteric Coated 81 MG Tablet PO SCH (08:32)
[2019-06-20] MEDS: Isosorbide MONOnitrate (24 HR) 60 MG TAB.ER.24H PO SCH (08:32)
[2019-06-20] MEDS: Sucralfate 1 GM TABLET PO SCH ×4 (08:32→22:05)
[2019-06-20 10:17] LABS: INR 1.1; Prothrombin Time 12.2 Seconds (9.4-12.1)
[2019-06-20] MEDS ORDERED: Furosemide 40 MG in 0.9 % Sodium Chloride 50 ML IV ONE (11:29)
[2019-06-20] MEDS ORDERED: Furosemide 40 MG/4 ML VIAL IVP ONE (11:31)
[2019-06-20] MEDS: Nystatin SUSP 5 ML UD.LIQ PO SCH ×3 (12:05→22:05)
[2019-06-20] MEDS ORDERED: *HR* FentaNYL (PF) 100 MCG/2 ML VIAL IVP ONE (14:36)
[2019-06-20] MEDS ORDERED: Clindamycin 600 MG/50 ML 600 MG/50 ML IV.SOLN IVPB STA (14:36)
[2019-06-20] MEDS ORDERED: *HR* Midazolam HCl 2 MG/2 ML VIAL IVP ONE (14:36)
[2019-06-20] MEDS ORDERED: Heparin 1,000 UNITS/500 mL 500 ML ONE (14:59)
[2019-06-20] MEDS ORDERED: 0.9 % Sodium Chloride 500 ML ONE (14:59)
[2019-06-20] MEDS ORDERED: *HR* Heparin 5,000 UNIT/ML VIAL ONE (15:13)
[2019-06-20 16:45] LABS: Hepatitis B Surface Antigen Nonreactive (Nonreactive)
[2019-06-21] MEDS: *HR* Heparin 5,000 UNIT/ML VIAL SQ SCH ×2 (04:57→18:46)
[2019-06-21 06:09] LABS: Basophils # 0.1 K/mcL (0.0-0.2); Eosinophils # 0.9 K/mcL (0.0-0.6); Eosinophils % 9.3 %; Hematocrit 28.7 % (35.3-44.9); Hemoglobin 8.9 g/dL (11.5-15.4); Immature Granulocytes % 0.4 % (0-4); Lymphocytes # 1.5 K/mcL (0.6-4.6); Mean Corpuscular Hemoglobin 26.3 pg (28.0-33.3); Mean Corpuscular Volume 84.9 fL (83.0-100.0); Mean Platelet Volume 11.1 fL (9.4-12.4); Monocytes % 10.1 %; Neutrophils # 6.3 K/mcL (1.6-8.9); Platelet Count 226 K/mcL (140-400); Red Blood Count 3.38 M/mcL (3.82-4.97); Segmented Neutrophils % 64.2 %; White Blood Count 9.8 K/mcL (4.3-11.1)
[2019-06-21 06:29] LABS: Calcium 9.3 mg/dL (8.6-10.3); Potassium 3.9 mEq/L (3.5-5.1)
[2019-06-21] MEDS: Aspirin Enteric Coated 81 MG Tablet PO SCH (07:45)
[2019-06-21] MEDS: Sucralfate 1 GM TABLET PO SCH ×4 (07:45→20:28)
[2019-06-21] MEDS: Nystatin SUSP 5 ML UD.LIQ PO SCH ×4 (07:45→20:27)
[2019-06-21] MEDS ORDERED: *HR* Heparin 10,000 UNIT/10 ML VIAL IV PRN (07:55)
[2019-06-21] MEDS ORDERED: 0.9 % Sodium Chloride 250 ML IVC PRN (07:55)
[2019-06-21] MEDS ORDERED: 0.9 % Sodium Chloride 1,000 ML PRIME SCH (08:00)
[2019-06-21 10:43] LABS: Serine Protease-3 Antibody 0 AU/mL (0-19)
[2019-06-21] MEDS: amLODIPine 5 MG TABLET PO SCH (12:06)
[2019-06-21] MEDS: Isosorbide MONOnitrate (24 HR) 60 MG TAB.ER.24H PO SCH (12:09)
[2019-06-21] MEDS ORDERED: Ondansetron 4 MG/2 ML VIAL IVP ONE (19:41)
[2019-06-21] MEDS ORDERED: Ondansetron ODT 4 MG TAB.RAPDIS SL ONE (19:53)
[2019-06-22 04:05] LABS: Bilirubin,Urine Negative (Negative); Blood,Urine Trace (Negative); Clarity,Urine Cloudy (Clear); Color,Urine Yellow (Yellow); Glucose,Urine (UA) Normal (Normal); Ketones,Urine Negative (Negative); Leukocyte Esterase,Urine Moderate (Negative); Nitrite,Urine Negative (Negative); PH,Urine 5.5 pH Units (5.0-8.0); Protein,Urine >=300 mg/dL (Neg-Trace); Urobilinogen,Urine Normal (Normal)
[2019-06-22 04:08] LABS: Bacteria,Urine Many per hpf (None-Few); Hyaline Casts,Urine None Seen per lpf (None-Few); Squamous Epithelial Cell,Urine Moderate per lpf (None-Few); WBC,Urine TNTC per hpf (0-3)
[2019-06-22 04:52] LABS: RBC,Urine 0-3 per hpf (0-3)
[2019-06-22 05:09] LABS: Creatinine,Urine 186 mg/dL; Microalbumin,Urine > 1350 mg/L; Protein/Creatinine Ratio,Urine 3.74 mg/mg (0.00-0.20)
[2019-06-22 05:21] LABS: Basophils # 0.1 K/mcL (0.0-0.2); Basophils % 0.8 %; Eosinophils # 0.5 K/mcL (0.0-0.6); Eosinophils % 4.7 %; Hematocrit 27.6 % (35.3-44.9); Hemoglobin 8.3 g/dL (11.5-15.4); Immature Granulocytes % 0.3 % (0-4); Lymphocytes # 2.2 K/mcL (0.6-4.6); Lymphocytes % 22.2 %; Mean Corpuscular HGB Conc 30.1 g/dL (31.6-35.5); Mean Corpuscular Hemoglobin 25.6 pg (28.0-33.3); Mean Corpuscular Volume 85.2 fL (83.0-100.0); Mean Platelet Volume 12.2 fL (9.4-12.4); Monocytes # 1.1 K/mcL (0.0-1.3); Monocytes % 10.8 %; Neutrophils # 6.2 K/mcL (1.6-8.9); Platelet Count 134 K/mcL (140-400); Red Blood Count 3.24 M/mcL (3.82-4.97); Red Cell Distribution Width 17.2 % (11.5-14.5); Segmented Neutrophils % 61.2 %; White Blood Count 10.1 K/mcL (4.3-11.1)
[2019-06-22 05:48] LABS: Calcium 8.9 mg/dL (8.6-10.3); Potassium 3.5 mEq/L (3.5-5.1)
[2019-06-22] MEDS: *HR* Heparin 5,000 UNIT/ML VIAL SQ SCH (05:51)
[2019-06-22] MEDS ORDERED: 0.9 % Sodium Chloride 250 ML IVC PRN (07:16)
[2019-06-22] MEDS: Sucralfate 1 GM TABLET PO SCH (08:55)
[2019-06-22] MEDS: Isosorbide MONOnitrate (24 HR) 60 MG TAB.ER.24H PO SCH (08:55)
[2019-06-22] MEDS: amLODIPine 5 MG TABLET PO SCH (08:56)
[2019-06-22] MEDS: Nystatin SUSP 5 ML UD.LIQ PO SCH (08:56)
[2019-06-22] MEDS: Aspirin Enteric Coated 81 MG Tablet PO SCH (08:56)
[2019-06-22 10:14] LABS: ANA IgG by ELISA NONE DETECTED (None Detected)
[2019-06-22 12:37] VITALS: BP 167/79
[2019-06-23] MEDS ORDERED: NON-FORMULARY MEDICATION 1 EACH EACH (Alendronate Sodium [Fosamax] 70 MG) PO SCH (21:11)
== END 2019-06-22 14:15 | disposition home or self-care (01) | DRG 673 ==
LOC: EMEROOARM 17:40 → 2ANU 17:40 → SUATTDRO 21:54 → 2ANU 22:17
PROVIDERS: ADMIT Internal Medicine; ATTEND Internal Medicine
PROC: IRPERMA (2019-06-20 12:00)